=== PATIENT | male | born 1965 | race Caucasian/White ===

== ENCOUNTER 2018-06-18 15:54 | Inpatient (IN) ==
[2018-06-18] MEDS ORDERED: Morphine Sulfate Inj 2 MG/ML Vial IV.PUSH ONE (16:38)
[2018-06-18] MEDS ORDERED: Vancomycin Inj 1,000 MG in Sodium Chlor 0.9% Inj 250 ML IV.SIG ONE (16:39)
--- NOTE | 2018-06-18 16:45 | XR ---
EXAM DATE: 06/18/2018 4:40 PM EST AGE/SEX: 53 years / Male INDICATIONS: Fever, chest pain. CLINICAL DATA: This is the patient's initial encounter. Patient reports that signs and symptoms have been present for 1 day and indicates a pain score of 5/10. MEDICAL/SURGICAL HISTORY: Diabetes. None. COMPARISON: [facility], CHEST 1V SINGLE AP, 03/02/2018. . FINDINGS: A single AP view of the chest demonstrates stable enlargement of the cardiac silhouette. There is als o stable opacification of the right lung base with blunting of the right lateral costophrenic angle, likely representing a combination of pleural fluid and airspace disease. There is also hazy opacifica tion of the right upper and mid hemithorax, which may be slightly more pronounced compared to prior e xam. Improved aeration of the left lung base. Osseous structures are grossly intact. CONCLUSION: 1. Stable enlargement of the cardiac silhouette. 2. Stable opacification of the right lung base, likely a combination of pleural fluid and airspace d isease. 3. Hazy opacification of the right upper and mid hemithorax, possibly representing layering pleural effusion. 4. Improved aeration of the left lung base. Electronically signed by: Callie Swenson MD Board Certified Radiologist 06/18/2018 4:44 PM EST
--- NOTE | 2018-06-18 16:51 | ED ---
HPI General Chief complaint: Wound/Laceration Stated complaint: Left foot pain Time Seen by Provider: 06/18/18 16:28 Source: patient Mode of arrival: ambulatory Limitations: no limitations History of Present Illness HPI narrative: Patient is a 53-year-old male presenting to the emergency department for evaluation of cellulitis to his left lower extremity. Patient states he was sent by Dr. Ochoa, lawn mower operator for gangrene of the left foot. Patient states he has had a wound on the left great toe for 1 month, the third toe started becoming black 1-1/2-2 weeks ago. There is also a third spot on the fourth toe. Patient reports 9 out of 10 pain, aching and throbbing, constant. Symptom onset was gradual, symptoms are moderate. Patient states that he was evaluated emergency department 2 weeks ago for an ankle injury that he sustained while moving his scooter. Patient states that there is redness extending up the left lewis that is gotten worse over the last 24 hours. He denies any fever, chills, chest pain, shortness of breath. Onset (ago): week(s) Location: lower extremity Radiation: extremity Severity: moderate Severity scale (1-10): 9 Quality: aching Pain Consistency: constant Relieving factors: none Exacerbating factors: movement Treatments prior to arrival: Reports none Related Data Home Medications Medication Instructions Recorded Confirmed amlodipine 5 mg PO DAILY 06/18/18 06/18/18 aspirin 81 mg PO DAILY 06/18/18 06/18/18 carbidopa-levodopa 1 tab PO BID 06/18/18 06/18/18 carvedilol 12.5 mg PO BID 06/18/18 06/18/18 cilostazol 100 mg PO DAILY 06/18/18 06/18/18 ezetimibe 10 mg PO DAILY 06/18/18 06/18/18 gabapentin 300 mg PO BID 06/18/18 06/18/18 hydrocortisone 5 mg PO HS 06/18/18 06/18/18 hydrocortisone 10 mg PO AC 06/18/18 06/18/18 lisinopril 10 mg PO DAILY 06/18/18 06/18/18 spironolactone 25 mg PO DAILY 06/18/18 06/18/18 Allergies Allergy/AdvReac Type Severity Reaction Status Date / Time simvastatin Allergy Severe Hives Verified 06/18/18 16:09 piperacillin [From Zosyn] Allergy Nausea/Vomi Verified 06/18/18 19:21 ting tazobactam [From Zosyn] Allergy Nausea/Vomi Verified 06/18/18 19:21 ting Review of Systems ROS: all other systems reviewed are negative [facility] Medical History Medical History CHF (congestive heart failure) (Acute) Complete below knee amputation of right lower extremity (Acute) Coronary artery disease (Acute) Diabetes (Acute) Dialysis patient (Acute) ESRD (end stage renal disease) on dialysis (Acute) Hypertension (Acute) Myocardial infarction (Acute) Surgical History Surgical History H/O hernia repair (Acute) Hx of BKA (Acute) Family History Family History Other CVA (cerebral vascular accident) Heart disease Social History Social History Substance History: No History of Abuse Second Hand Smoke Exposure: Yes Smoking Status: Current some day smoker Tobacco Type: Cigarettes How Often Do You Have a Drink Containing Alcohol: Never Recent Travel in [facility] within the Last 8 Weeks: No Recent Out of Country Travel within the Last 8 Weeks: No Immunization History Tetanus Immunization: <5 Years Exam Narrative Exam Narrative: GENERAL: Well-developed, well-nourished, alert male. Appears uncomfortable, no acute distress. SKIN: Focused skin assessment warm/dry. 1 cm area of necrosis to the left great toe on the dorsal aspect, necrosis to the left third toe, the left fourth toe has an area that appears necrotic on the distal aspect. Erythema extending from the foot to the mid calf on the left. foot is significantly tender. Sensation is intact but diminished. HEAD: Atraumatic. Normocephalic. EYES: Pupils equal and round. No scleral icterus. No injection or drainage. ENT: No nasal bleeding or discharge. Mucous membranes pink and moist. NECK: Trachea midline. No JVD. CARDIOVASCULAR: Regular rate and rhythm. No murmur appreciated. RESPIRATORY: No accessory muscle use. Clear to auscultation. Breath sounds equal bilaterally. GASTROINTESTINAL: Abdomen soft, non-tender, nondistended. Hepatic and splenic margins not palpable. MUSCULOSKELETAL: No obvious deformities. No clubbing. No cyanosis. R BKA. Pulse by Doppler. NEUROLOGICAL: Awake and alert. No obvious cranial nerve deficits. Motor grossly within normal limits. Normal speech. PSYCHIATRIC: Appropriate mood and affect; insight and judgment normal. Course Initial Documented Vital Signs Temperature 99.0 F 06/18/18 16:07 Pulse Rate 78 06/18/18 16:07 Respiratory Rate 18 06/18/18 16:07 Blood Pressure 160/75 H 06/18/18 16:07 Pulse Oximetry 96 06/18/18 16:07 Last Documented Vital Signs Temperature 97.2 F L 06/19/18 04:00 Pulse Rate 77 06/19/18 04:00 Respiratory Rate 18 06/19/18 04:00 Blood Pressure 110/59 L 06/19/18 04:00 Pulse Oximetry 94 L 06/19/18 04:00 Medical Decision Making MDM Narrative Medical decision making narrative: Patient is a 53-year-old male presenting on the advice of his lawn mower operator Dr. Maria for evaluation of possible gangrene to the left foot. Labs and imaging ordered and pending, sepsis workup initiated. Patient will be given vancomycin now. MRI is pending. Patient was given morphine for pain control. CBC with stable hemoglobin of 10.3/30.5, lactic acid 0.8, CRP is 11, sed rate is 92, BUN and creatinine elevated, this is expected finding. Patient is due to have hemodialysis tomorrow. MRI shows degenerative osteoarthritis, no definitive osteomyelitis. Discussed with Dr. Peterson who accepted admission, admit orders placed. Advised that podiatry needed to be consulted, and that lawn mower operator sent patient to the emergency department for admission. Medical Screen Exam Complete: Yes Emergency Medical Condition: Yes Differential Diagnosis Differential Diagnosis: Cellulitis versus osteomyelitis versus gangrene versus other Medical Records Medical records reviewed: Yes I reviewed the patient's medical records. Lab Data Lab results reviewed: Yes I reviewed the patient's lab results. Result diagrams: 06/18/18 16:50 06/18/18 16:50 Lab Results 06/18/18 06/18/18 06/18/18 Range/Units 16:50 16:50 16:50 WBC 7.1 (4.0-11.0) th/mm3 RBC 3.19 L (4.50-5.90) mil/mm3 Hgb 10.3 L (13.0-17.0) gm/dL Hct 30.5 L (39.0-51.0) % MCV 95.7 (80.0-100.0) fL MCH 32.2 (27.0-34.0) pg MCHC 33.6 (32.0-36.0) % RDW 16.4 (11.6-17.2) % Plt Count 247 (150-450) th/mm3 MPV 7.6 (7.0-11.0) fL Neut % (Auto) 76.1 H (16.0-70.0) % Lymph % (Auto) 10.5 (9.0-44.0) % Kingfisher % (Auto) 7.0 (0.0-8.0) % Eos % (Auto) 5.3 H (0.0-4.0) % Baso % (Auto) 1.1 (0.0-2.0) % Neut # (Auto) 5.4 (1.8-7.7) th/mm3 Lymph # (Auto) 0.7 L (1.0-4.8) th/mm3 Kingfisher # (Auto) 0.5 (0.0-0.9) th/mm3 Eos # (Auto) 0.4 (0.0-0.4) th/mm3 Baso # (Auto) 0.1 (0.0-0.2) th/mm3 WBC Differential . Differential Comment Auto diff final ESR (0-20) mm/hr PT 10.7 (9.8-11.6) sec INR 1.1 Ratio APTT 30.8 (23.4-31.7) sec Sodium 140 (136-145) meq/L Potassium 4.5 (3.5-5.1) meq/L Chloride 106 (98-107) meq/L Carbon Dioxide 20.6 L (21.0-32.0) meq/L Anion Gap 13 (5-15) meq/L BUN 72 H (7-18) mg/dL Creatinine 8.98 H (0.60-1.30) mg/dL Estimated GFR 6 L (>89) mL/min POC Glucose (68-110) mg/dl Random Glucose 115 H (74-106) mg/dL Lactic Acid (0.4-2.0) mmol/L Calcium 7.6 L (8.5-10.1) mg/dL Magnesium 2.0 (1.5-2.5) mg/dL Total Bilirubin 0.3 (0.2-1.0) mg/dL AST 15 (15-37) U/L ALT 11 L (12-78) U/L Alkaline Phosphatase 134 H (45-117) U/L C-Reactive Protein 11.00 H (0.00-0.30) mg/dL Total Protein 6.6 (6.4-8.2) g/dL Albumin 2.2 L (3.4-5.0) g/dL 06/18/18 06/18/18 06/18/18 Range/Units 16:50 16:50 21:59 WBC (4.0-11.0) th/mm3 RBC (4.50-5.90) mil/mm3 Hgb (13.0-17.0) gm/dL Hct (39.0-51.0) % MCV (80.0-100.0) fL MCH (27.0-34.0) pg MCHC (32.0-36.0) % RDW (11.6-17.2) % Plt Count (150-450) th/mm3 MPV (7.0-11.0) fL Neut % (Auto) (16.0-70.0) % Lymph % (Auto) (9.0-44.0) % Kingfisher % (Auto) (0.0-8.0) % Eos % (Auto) (0.0-4.0) % Baso % (Auto) (0.0-2.0) % Neut # (Auto) (1.8-7.7) th/mm3 Lymph # (Auto) (1.0-4.8) th/mm3 Kingfisher # (Auto) (0.0-0.9) th/mm3 Eos # (Auto) (0.0-0.4) th/mm3 Baso # (Auto) (0.0-0.2) th/mm3 WBC Differential Differential Comment ESR 93 H (0-20) mm/hr PT (9.8-11.6) sec INR Ratio APTT (23.4-31.7) sec Sodium (136-145) meq/L Potassium (3.5-5.1) meq/L Chloride (98-107) meq/L Carbon Dioxide (21.0-32.0) meq/L Anion Gap (5-15) meq/L BUN (7-18) mg/dL Creatinine (0.60-1.30) mg/dL Estimated GFR (>89) mL/min POC Glucose 124 H (68-110) mg/dl Random Glucose (74-106) mg/dL Lactic Acid 0.8 (0.4-2.0) mmol/L Calcium (8.5-10.1) mg/dL Magnesium (1.5-2.5) mg/dL Total Bilirubin (0.2-1.0) mg/dL AST (15-37) U/L ALT (12-78) U/L Alkaline Phosphatase (45-117) U/L C-Reactive Protein (0.00-0.30) mg/dL Total Protein (6.4-8.2) g/dL Albumin (3.4-5.0) g/dL Imaging Data Radiologist's impression: Chest X-Ray 06/18/18 16:28 CONCLUSION: 1. Stable enlargement of the cardiac silhouette. 2. Stable opacification of the right lung base, likely a combination of pleural fluid and airspace disease. 3. Hazy opacification of the right upper and mid hemithorax, possibly representing layering pleural effusion. 4. Improved aeration of the left lung base. Foot MRI 06/18/18 16:30 CONCLUSION: 1. Postsurgical features with no definitive evidence for osteomyelitis, as questioned. 2. Degenerative osteoarthritis, most notably of the first metatarsophalangeal and interphalangeal joints. Discharge Plan Discharge Disposition Patient Disposition: ED Admit(ED Internal Use Only) Discharge Condition Condition: Stable Discharge Order Discharge Orders: ED Use Only Admit Order (Routine); Ordered 06/18/18 Ordered By: Judy Acosta Discharge Details Diagnosis: ESRD (end stage renal disease) on dialysis, DM2 (diabetes mellitus, type 2), Cellulitis, Gangrene Physicians Team ED Provider: Ciarra Gray ED Midlevel Provider: Judy Acosta Primary Care Provider: Jose Orellana Attending Provider: Alex Garcia Other Providers: Chele Reid ; Elvia Rodriguez Status ED Status: Left Department Discharge Information Discharge Date/Time: 06/18/18 19:53
[2018-06-18 17:05] LABS: Baso # (Auto) 0.1 th/mm3 (0.0-0.2); Baso % (Auto) 1.1 % (0.0-2.0); Eos # (Auto) 0.4 th/mm3 (0.0-0.4); Eos % (Auto) 5.3 % (0.0-4.0); Hematocrit 30.5 % (39.0-51.0); Hemoglobin 10.3 gm/dL (13.0-17.0); Lymph # (Auto) 0.7 th/mm3 (1.0-4.8); Lymph % (Auto) 10.5 % (9.0-44.0); Mean Corpuscular HGB Conc 33.6 % (32.0-36.0); Mean Corpuscular Hemoglobin 32.2 pg (27.0-34.0); Mean Corpuscular Volume 95.7 fL (80.0-100.0); Mean Platelet Volume 7.6 fL (7.0-11.0); Mono # (Auto) 0.5 th/mm3 (0.0-0.9); Neut # (Auto) 5.4 th/mm3 (1.8-7.7); Neut % (Auto) 76.1 % (16.0-70.0); Platelet Count 247 th/mm3 (150-450); Red Blood Count 3.19 mil/mm3 (4.50-5.90); Red Cell Distribution Width 16.4 % (11.6-17.2); White Blood Count 7.1 th/mm3 (4.0-11.0)
[2018-06-18 17:22] LABS: Activated Partial Thrombo Time 30.8 sec (23.4-31.7); INR 1.1 Ratio; Prothrombin Time 10.7 sec (9.8-11.6)
[2018-06-18 17:43] LABS: Alanine Aminotransferase 11 U/L (12-78); Albumin 2.2 g/dL (3.4-5.0); Anion Gap 13 meq/L (5-15); Aspartate Aminotransferase 15 U/L (15-37); Blood Urea Nitrogen 72 mg/dL (7-18); Calcium 7.6 mg/dL (8.5-10.1); Carbon Dioxide 20.6 meq/L (21.0-32.0); Chloride 106 meq/L (98-107); Glomerular Filtration Rate 6 mL/min (>89); Glucose,Random 115 mg/dL (74-106); Potassium 4.5 meq/L (3.5-5.1); Sodium 140 meq/L (136-145)
[2018-06-18 17:46] LABS: Alkaline Phosphatase 134 U/L (45-117); Total Protein 6.6 g/dL (6.4-8.2)
[2018-06-18] MEDS ORDERED: Piperacil/Tazo 3.375 GM Premix 3.375 GM/50 ML PIGGYBACK IV.SIG ONE (18:31)
[2018-06-18] MEDS ORDERED: Dextrose 50% in Water 50 ML Vial IV.PUSH PRN (18:34)
[2018-06-18] MEDS ORDERED: Vancomycin Consult Pharmacy OTHER PRN (18:34)
[2018-06-18] MEDS ORDERED: Acetaminophen 325 MG Tablet PO PRN (18:37)
[2018-06-18] MEDS ORDERED: Bisacodyl 10 MG Supp RECTAL PRN (18:37)
[2018-06-18] MEDS ORDERED: Naloxone Inj 0.4 MG/ML Vial IV.PUSH PRN (18:40)
--- NOTE | 2018-06-18 18:49 | MR ---
EXAM DATE: 06/18/2018 6:41 PM EST AGE/SEX: 53 years / Male INDICATIONS: Osteomyelitis. CLINICAL DATA: This is the patient's initial encounter. Patient reports that signs and symptoms have been present for 1 day and indicates a pain score of 0/10. MEDICAL/SURGICAL HISTORY: Diabetes mellitus type II. Hypertension. Chronic renal failure. Li pedrito failure. CHF. . Left foot second toe amputation. Right BKA. Dialysis port placement. COMPARISON: C, FOOT COMPLETE LEFT 3V, 06/04/2018. . TECHNIQUE: Multiplanar, multisequence MRI examination was performed without contrast. FINDINGS: Bones: Postsurgical features of prior amputation of the second phalanges and resection of the distal fifth metatarsal. No definitive abnormal bone marrow signal or bone marrow edema to suggest osteomyel itis. Joint Spaces: Degenerative osteoarthritis most notably of the first metatarsophalangeal and interphal angeal joints with subtle joint effusions. Tendons: The flexor tendons are intact. Soft Tissues: Postsurgical soft tissue changes. Otherwise, unremarkable. Other: The plantar fascia is intact. No signal abnormalities are seen in the plantar musculature. CONCLUSION: 1. Postsurgical features with no definitive evidence for osteomyelitis, as questioned. 2. Degenerative osteoarthritis, most notably of the first metatarsophalangeal and interphalangeal wilberto ints. Electronically signed by: Anthony Ferrer MD Board Certified Radiologist 06/18/2018 6:47 PM BRYAN Gray
[2018-06-18] MEDS: Morphine Inj 4 MG/ML Vial IV.PUSH PRN (19:22)
[2018-06-18] MEDS ORDERED: Hydrocortisone 10 MG Tablet PO SCH (21:00)
--- NOTE | 2018-06-18 21:16 | P.HP ---
History of Present Illness Service: [facility] Primary Care Physician: Jose Orellana MD History of Present Illness: 53-year-old male with a past medical history significant for diabetes mellitus, coronary artery disease, end-stage renal disease on dialysis Thursday, liver disease with multiple paracentesis and hypertension presents to the emergency department for the evaluation of left third toe cellulitis and pain. The patient reports that approximately 2 weeks ago he started to have pain and swelling in the third digit on his left foot. He denies any trauma to the area but does state that he had a sore from his diabetic shoes present on that foot. He was seen by his data modeling architect, Dr. Ochoa, and sent to the emergency department for further evaluation. Patient denies any fever/chills. Last dialysis was yesterday. No chest pain or shortness of breath. No abdominal pain. No nausea/vomiting/diarrhea. No focal neurologic deficits. Inpatient Certification: I certify that the inpatient services were ordered in accordance with Medicare regulations governing the order. This includes certification that hospital inpatient services are reasonable and necessary and in the case of services not specified as inpatient-only under 42 CFR 419.22(n), that they are appropriately provided as inpatient services in accordance to with the 2-midnight benchmark under 43 CFR 412.3(e) Estimated Total Length of Stay (Days): 2 Plans for Post Hospital Care: Not yet determined Review of Systems All other systems reviewed negative except as stated in HPI [facility] - History History Provided By: Patient - Medical History Medical History: Medical History (Last Reviewed 06/18/18 @ 21:08 by Otilia Orozco MD) ESRD (end stage renal disease) on dialysis CHF (congestive heart failure) Complete below knee amputation of right lower extremity Coronary artery disease Diabetes Dialysis patient Hypertension Myocardial infarction - Surgical History Surgical History: Surgical History (Last Reviewed 06/18/18 @ 21:08 by Otilia Orozco MD) H/O hernia repair Hx of BKA - Family History Family History: Family History (Last Reviewed 06/18/18 @ 21:08 by Otilia Orozco MD) Other CVA (cerebral vascular accident) Heart disease - Tobacco History Second Hand Smoke Exposure: Yes Tobacco Use In Past 30 Days: Yes Smoking Status: Current every day smoker Tobacco Type: Cigarettes - Alcohol History How Often Do You Have a Drink Containing Alcohol: Never - Substance Use History Substance History: No History of Abuse - Travel History Recent Travel in the [place] Within the Last 8 Weeks: No Recent Travel Out of the Country Within the Last 8 Weeks: No - Immunization History Tetanus Immunization: <5 Years Medications and Allergies Active Medications: Active Medications Acetaminophen (Tylenol) 650 mg PO Q4H PRN PRN Reason: Temp > 100.4 Hydrocodone Bitart/Acetaminophen ([place] 5/325) 1 tab PO Q4H PRN PRN Reason: PAIN SCALE 3 TO 5 Hydrocodone Bitart/Acetaminophen ([place] 10/325) 1 tab PO Q4H PRN PRN Reason: PAIN SCALE 6 TO 10 Amlodipine Besylate (Norvasc) 5 mg PO DAILY [facility] Aspirin (Aspirin Chew) 81 mg PO DAILY [facility] Bisacodyl (Dulcolax Supp) 10 mg RECTAL DAILY PRN PRN Reason: SEVERE CONSITIPATION Carbidopa/Levodopa (Simemet 10/100 Mg) 1 tab PO BID [facility] Carvedilol (Coreg) 12.5 mg PO BID [facility] Cilostazol (Pletal) 100 mg PO DAILY [facility] Dextrose (D50w Vial) 50 ml IV.PUSH UNSCH PRN PRN Reason: PER HYPOGLYCEMIA PROTOCOL Ezetimibe (Zetia) 10 mg PO DAILY [facility] Gabapentin (Neurontin) 300 mg PO BID [facility] Glucagon (Glucagon Inj) 1 mg OTHER PRN PRN PRN Reason: for Hypoglycemia Protocol Hydrocortisone Acetate (Cortef) 5 mg PO HS [facility] Piperacillin/Tazobactam/Dextrose (Zosyn 3.375 Gm Premix) 3.375 gm in 50 mls @ 100 mls/hr IV.SIG Q6H [facility] Insulin Aspart (Novolog Insulin Correctional Sugar Inj) 0 unit SQ ACHS ADELINE; Protocol Lactulose (Lactulose Liq) 30 ml PO DAILY PRN PRN Reason: SEVERE CONSITIPATION Miscellaneous (Pill Splitter) 1 each OTHER UNSCH PRN PRN Reason: SEE LABEL COMMENTS Morphine Sulfate (Morphine Inj) 1 mg IV.PUSH Q3H PRN PRN Reason: BREAKTHROUGH PAIN Last Admin: 06/18/18 19:22 Dose: 1 mg Naloxone HCl (Narcan Inj) 0.4 mg IV.PUSH UNSCH PRN PRN Reason: SEE LABEL COMMENTS Ondansetron HCl (Zofran Inj) 4 mg IV.PUSH Q6H PRN PRN Reason: NAUSEA OR VOMITING Last Admin: 06/18/18 19:21 Dose: 4 mg Pharmacy Profile Note (Vancomycin Consult Pharmacy) 1 each OTHER UNSCH PRN PRN Reason: Pharmacy to dose Senna/Docusate Sodium (Meredith-Colace) 1 tab PO BID [facility] Sennosides (Senokot) 17.2 mg PO Q12H PRN PRN Reason: Moderate Constipation Sodium Chloride (Ns Flush) 2 ml IV.FLUSH BID ADELINE Sodium Chloride (Ns Flush) 2 ml IV.FLUSH PRN PRN PRN Reason: FLUSH AFTER USING IV ACCESS Allergies Allergy/AdvReac Type Severity Reaction Status Date / Time simvastatin Allergy Severe Hives Verified 06/18/18 16:09 piperacillin [From Zosyn] Allergy Nausea/Vomi Verified 06/18/18 19:21 ting tazobactam [From Zosyn] Allergy Nausea/Vomi Verified 06/18/18 19:21 ting Home Medications Medication Instructions Recorded Confirmed Type amlodipine 5 mg PO DAILY 06/18/18 06/18/18 History aspirin 81 mg PO DAILY 06/18/18 06/18/18 History carbidopa-levodopa 1 tab PO BID 06/18/18 06/18/18 History carvedilol 12.5 mg PO BID 06/18/18 06/18/18 History cilostazol 100 mg PO DAILY 06/18/18 06/18/18 History ezetimibe 10 mg PO DAILY 06/18/18 06/18/18 History gabapentin 300 mg PO BID 06/18/18 06/18/18 History hydrocortisone 5 mg PO HS 06/18/18 06/18/18 History hydrocortisone 10 mg PO AC 06/18/18 06/18/18 History lisinopril 10 mg PO DAILY 06/18/18 06/18/18 History spironolactone 25 mg PO DAILY 06/18/18 06/18/18 History Exam Vital signs: Vital Signs 06/18/18 16:07 06/18/18 16:40 06/18/18 16:42 Temperature 99.0 F Pulse Rate 78 82 78 Respiratory Rate 18 20 Blood Pressure 160/75 H 155/77 H Pulse Oximetry 96 98 98 Intake & Output 06/18/18 06/18/18 06/19/18 06:59 18:59 06:59 Intake Total 250 / 250 Balance 250 / 250 Weight 90.718 kg Intake: IV 250 / 250 Zosyn 3.375 GM Premix 3.375 gm In 50 ml @ 100 mls/hr IV.SIG ONCE ONE Rx#:[id number] Vancomycin Inj 1,000 MG In NS 250 / 250 Inj 250 ML @ 250 mls/hr IV.SIG ONCE ONE Rx#:[id number] Narrative: Gen.: No acute distress Head: Normocephalic. Atraumatic. EENT: Pupils equal round and reactive to light. Nose without drainage. Airway intact. Throat without injection. Cardiovascular: Regular rate and rhythm. No murmurs, rubs or gallops. Respiratory: Lungs clear to auscultation bilaterally. No wheezes or rhonchi. Abdomen: Soft, nontender, nondistended. No peritoneal signs. Musculoskeletal: Right AKA. Status post amputation of second digit left foot. Skin: Third digit of left foot gangrenous appearing without drainage. Neuro: Sensory and motor grossly intact. Cranial nerves II through XII grossly intact. Results - Labs CBC & Chem 7: 06/18/18 16:50 06/18/18 16:50 Labs: Laboratory Results - last 24 hr 06/18/18 06/18/18 06/18/18 16:50 16:50 16:50 WBC 7.1 RBC 3.19 L Hgb 10.3 L Hct 30.5 L MCV 95.7 MCH 32.2 MCHC 33.6 RDW 16.4 Plt Count 247 MPV 7.6 Neut % (Auto) 76.1 H Lymph % (Auto) 10.5 [place] % (Auto) 7.0 Eos % (Auto) 5.3 H Baso % (Auto) 1.1 Neut # (Auto) 5.4 Lymph # (Auto) 0.7 L [place] # (Auto) 0.5 Eos # (Auto) 0.4 Baso # (Auto) 0.1 WBC Differential . Differential Comment Auto diff final ESR PT 10.7 INR 1.1 APTT 30.8 Sodium 140 Potassium 4.5 Chloride 106 Carbon Dioxide 20.6 L Anion Gap 13 BUN 72 H Creatinine 8.98 H Estimated GFR 6 L Random Glucose 115 H Lactic Acid Calcium 7.6 L Magnesium 2.0 Total Bilirubin 0.3 AST 15 ALT 11 L Alkaline Phosphatase 134 H C-Reactive Protein 11.00 H Total Protein 6.6 Albumin 2.2 L 06/18/18 06/18/18 16:50 16:50 WBC RBC Hgb Hct MCV MCH MCHC RDW Plt Count MPV Neut % (Auto) Lymph % (Auto) [place] % (Auto) Eos % (Auto) Baso % (Auto) Neut # (Auto) Lymph # (Auto) [place] # (Auto) Eos # (Auto) Baso # (Auto) WBC Differential Differential Comment ESR 93 H PT INR APTT Sodium Potassium Chloride Carbon Dioxide Anion Gap BUN Creatinine Estimated GFR Random Glucose Lactic Acid 0.8 Calcium Magnesium Total Bilirubin AST ALT Alkaline Phosphatase C-Reactive Protein Total Protein Albumin - Imaging Impressions Chest X-Ray 06/18/18 16:28 CONCLUSION: 1. Stable enlargement of the cardiac silhouette. 2. Stable opacification of the right lung base, likely a combination of pleural fluid and airspace disease. 3. Hazy opacification of the right upper and mid hemithorax, possibly representing layering pleural effusion. 4. Improved aeration of the left lung base. Foot MRI 06/18/18 16:30 CONCLUSION: 1. Postsurgical features with no definitive evidence for osteomyelitis, as questioned. 2. Degenerative osteoarthritis, most notably of the first metatarsophalangeal and interphalangeal joints. Caprini VTE Risk Assessment Caprini VTE Risk Assessment: No/Low Risk (score <= 1) Caprini Risk Assessment Model: Point Value = 1 Point Value = 2 Point Value = 3 Point Value = 5 Age 41-60 Minor surgery BMI > 25 kg/m2 Swollen legs Varicose veins or History of unexplained or recurrent spontaneous Oral contraceptives or hormone replacement Sepsis (< 1 month) Serious lung disease, including pneumonia (< 1 month) Abnormal pulmonary function Acute myocardial infarction Congestive heart failure (< 1 month) History of inflammatory bowel disease Medical patient at bed rest Age 61-74 Arthroscopic surgery Major open surgery (> 45 min) Laparoscopic surgery (> 45 min) Malignancy Confined to bed (> 72 hours) Immobilizing plaster cast Central venous access Age >= 75 History of VTE Family history of VTE Factor V Leiden Prothrombin [id number] Lupus anticoagulant Anticardiolipin antibodies Elevated serum homocysteine Heparin-induced thrombocytopenia Other congenital or acquired thrombophilia Stroke (< 1 month) Elective arthroplasty Hip, pelvis, or leg fracture Acute spinal cord injury (< 1 month) Prophylaxis Regimen: Total Risk Factor Score Risk Level Prophylaxis Regimen 0-1 Low Early ambulation 2 Moderate Order ONE of the following: *Sequential Compression Device (SCD) *Heparin 5000 units SQ BID 3-4 Higher Order ONE of the following medications: *Heparin 5000 units SQ TID *Enoxaparin/Lovenox 40 mg SQ daily (WT < 150 kg, CrCl > 30 mL/min) *Enoxaparin/Lovenox 30 mg SQ daily (WT < 150 kg, CrCl > 10-29 mL/min) *Enoxaparin/Lovenox 30 mg SQ BID (WT < 150 kg, CrCl > 30 mL/min) AND/OR *Sequential Compression Device (SCD) 5 or more Highest Order ONE of the following medications: *Heparin 5000 units SQ TID (Preferred with Epidurals) *Enoxaparin/Lovenox 40 mg SQ daily (WT < 150 kg, CrCl > 30 mL/min) *Enoxaparin/Lovenox 30 mg SQ daily (WT < 150 kg, CrCl > 10-29 mL/min) *Enoxaparin/Lovenox 30 mg SQ BID (WT < 150 kg, CrCl > 30 mL/min) AND *Sequential Compression Device (SCD) Assessment and Plan - Plan Assessment/plan: 1. Toe cellulitis Foot MRI negative for osteoarthritis Vancomycin and aztreonam as patient had allergic reaction to Zosyn Podiatry consulted, appreciate assistance Blood cultures pending 2. End-stage renal disease on dialysis Patient last dialyzed yesterday Nephrology consulted to assist 3. Liver disease Patient reports he has had approximately 30 paracenteses No shortness of breath Monitor 4. Diabetes mellitus Sliding scale insulin Monitor blood glucose 5. Hypertension/coronary artery disease Continue home medications FEN N.p.o. Electrolytes: Monitor and replete as needed
[2018-06-18] MEDS: Insulin NovoLOG Aspart Correctional Sugar Inj SQ SCH (21:59)
[2018-06-18] MEDS: Senna/Docusate Sodium 8.6/50 MG Tablet PO SCH (22:21)
[2018-06-18] MEDS: Carvedilol 12.5 MG Tablet PO SCH (22:21)
[2018-06-18] MEDS: Gabapentin 300 MG Capsule PO SCH (22:21)
[2018-06-18] MEDS: Aztreonam Inj 2 GM in Sodium Chloride 0.9% Inj 100 ML IV.SIG SCH (22:24)
[2018-06-19] MEDS ORDERED: Piperacil/Tazo 3.375 GM Premix 3.375 GM/50 ML PIGGYBACK IV.SIG SCH (01:00)
[2018-06-19] MEDS: Morphine Inj 4 MG/ML Vial IV.PUSH PRN ×3 (06:59→21:20)
[2018-06-19] MEDS ORDERED: Hydrocortisone 10 MG Tablet PO SCH (08:00)
[2018-06-19] MEDS: Ezetimibe 10 MG Tablet PO SCH (08:23)
[2018-06-19] MEDS: amLODIPine 5 MG Tablet PO SCH (08:24)
[2018-06-19] MEDS: Insulin NovoLOG Aspart Correctional Sugar Inj SQ SCH ×4 (08:24→20:20)
[2018-06-19] MEDS: Gabapentin 300 MG Capsule PO SCH ×2 (08:24→20:14)
[2018-06-19] MEDS: Senna/Docusate Sodium 8.6/50 MG Tablet PO SCH ×2 (08:24→20:14)
[2018-06-19] MEDS: Carvedilol 12.5 MG Tablet PO SCH ×2 (08:25→20:14)
[2018-06-19] MEDS ORDERED: Gelatin 12 MM/7 MM Topical Foam TOPICAL PRN (10:07)
[2018-06-19] MEDS ORDERED: Acetaminophen 325 MG Tablet PO PRN (10:07)
[2018-06-19] MEDS ORDERED: Sod Chloride 0.9% Inj 1,000 ML OTHER PRN ×2 (10:07)
[2018-06-19] MEDS ORDERED: Sod Chloride 0.9% Inj 1,000 ML IV.CONT PRN (10:07)
[2018-06-19] MEDS ORDERED: Heparin 10,000 UNITS/10 ML Vial (for IV use) OTHER PRN ×2 (10:07)
[2018-06-19] MEDS ORDERED: Vancomycin Inj 1,000 MG in Sodium Chlor 0.9% Inj 250 ML IV.SIG SCH (11:00)
--- NOTE | 2018-06-19 11:11 | ECHRPT ---
EXAM DATE: 06/19/2018 10:35 AM EST AGE/SEX: 53 years / Male INDICATIONS: left third toe cellulitis, diabetes mellitus CLINICAL DATA: This is the patient's initial encounter. Patient reports that signs and symptoms have been present for 2 weeks and indicates a pain score of 4/10. MEDICAL/SURGICAL HISTORY: . congestive heart failure, right below knee amputation, coronary art joaquina disease, diabetes mellitus, dialysis, ESRD, hypertension, myocardial infarction . hernia repair, BKA right COMPARISON: No prior exams available for comparison. TECHNIQUE: Four-cuff ankle and brachial pressures were obtained. Pulse cuff waveform tracings of the ankles were recorded, and ankle-brachial indices were calculated. PRESSURES (mmHg): Brachial (arm) : RIGHT: 123, LEFT: no bp/sticks Ankle : RIGHT: , LEFT: 67 KELLY : RIGHT: , LEFT: 0.54 TBI : RIGHT: , LEFT: 0.00 FINDINGS: Pulsed-Cuff Waveform: Pulse amplitude is dampened in the ankle and toe. Other: None. CONCLUSION: 1. Decreased right KELLY characteristic of moderate arterial insufficiency. 2. Absent toe pressure characteristic of severe small vessel disease and arterial insufficiency invo lving the foot. Electronically signed by: Jarod Adamson MD Board Certified Radiologist 06/19/2018 11:10 AM EST
--- NOTE | 2018-06-19 11:11 | MB ---
cc: Chele Reid MD DATE: 06/19/2018 REASON FOR CONSULTATION: End-stage renal disease, on hemodialysis for management. HISTORY OF PRESENT ILLNESS: This is a 53-year-old male with a past medical history of diabetes mellitus, ischemic heart disease, end-stage renal disease on hemodialysis 3 times per week, hypertension, peripheral vascular disease, who came to the hospital because of cellulitis and pain in the left third toe. I was called to see the patient for the management of dialysis. He has been following with Dr. Cortez and has been on hemodialysis Thursday, and Thursday. Last hemodialysis was done on . The patient has been following with research assistant, Dr. Ochoa, and he was sent to the emergency room. He has middle toe on the left foot getting some discoloration. There is no history of trauma. The patient has a history of right [id number] amputation in the past. There is no history of fever. No shortness of breath, no chest pain. No palpitation. PAST MEDICAL HISTORY: Hypertension, diabetes mellitus, peripheral vascular disease, chronic anemia, end-stage renal disease on hemodialysis 3 times per week, congestive heart failure. PAST SURGICAL HISTORY: AV fistula surgery, right [id number] amputation, hernia repair surgery. REVIEW OF SYSTEMS: There is no history of fever. No headache, dizziness or blurring of vision. No shortness of breath, no chest pain. No palpitation. No nausea or vomiting. No abdominal pain or diarrhea. The patient still has pain in the left foot area. There is no history of trauma. He has been following with research assistant. SOCIAL HISTORY: The patient is a chronic smoker. There is no history of heavy alcoholism. FAMILY HISTORY: Noncontributory. ALLERGIES: HE IS ALLERGIC TO SIMVASTATIN, ZOSYN AND TAZOBACTAM. MEDICATIONS: Currently, he is on: 1. Tylenol. 2. [place]. 3. Norvasc 5 mg once a day. 4. Aspirin 81 mg daily. 5. Aztreonam 2 grams IV every 24 hours. 6. Dulcolax p.r.n. 7. Sinemet one b.i.d. 8. Coreg 12.5 mg b.i.d. 9. Pletal 100 mg daily. 10. Zetia 10 mg daily. 11. Neurontin 300 mg b.i.d. 12. Insulin sliding scale. 13. Narcan. 14. Zofran as needed. PHYSICAL EXAMINATION: GENERAL: He is awake, alert. He is currently on hemodialysis. VITAL SIGNS: Blood pressure is 110/59, temperature 97.2, and he has been afebrile since he came in. He has a T-max of 99. HEENT: Pupils are mid constricted. Nonicteric sclerae. Conjunctivae pale. NECK: Supple. JVD is not elevated. LUNGS: The patient has bilateral good air entry with occasional wheezing. HEART: S1, S2. Regular rate and rhythm. ABDOMEN: Distended, soft, lax. There is no tenderness. Bowel sounds positive. EXTREMITIES: He has a right below-knee amputation. The left middle toe has blackish discoloration. There is no discharge seen. INVESTIGATIONS: WBC count is 7.1, hemoglobin 10.3, platelet count of 247, neutrophils 76.1%. Sodium 140, potassium 4.5, chloride 106, bicarbonate 20.6, BUN 72, creatinine 8.98, glucose 116, calcium 7.6, magnesium 2.0, AST is 15, ALT is 11, albumin is 2.2. IMAGING STUDIES: The patient had MRI of the foot done, which shows that he has degenerative osteoarthritis and post-surgical features with no definite evidence of osteomyelitis. Chest x-ray was done which shows a stable opacity at the right lung base, opacification of the right upper hemithorax, possibly underlying pleural effusion. ASSESSMENT AND PLAN: 1. Left middle toe infection versus gangrene. 2. End-stage renal disease, on hemodialysis. 3. Diabetes mellitus. 4. Anemia. 5. History of hypertension. The patient is currently on antibiotics including aztreonam and also received 1 dose of vancomycin yesterday. Will give vancomycin with dialysis. He is currently on hemodialysis and we will give him Epogen with dialysis. His last hemoglobin is 10.3. Follow the culture results. Podiatry has been consulted. We will wait for their recommendation. Thank you for the consultation. I will follow the patient while he is in the hospital. MD LUIS Odom/dayanna , 10:07 AM , 10:16 AM
--- NOTE | 2018-06-19 14:21 | P.PNIM ---
Subjective Interval history: The patient was resting comfortably in bed. He stated that his toe got worse over the past few days. He says he continues to smoke cigarettes. He is trying to quit. He says that his blood sugars are perfect at home. Discussed with nursing. Physical Exam Vital signs: Last Vital Signs Temp 97.8 F 06/19/18 08:00 Pulse 77 06/19/18 08:00 Resp 20 06/19/18 08:00 BP 105/70 06/19/18 08:00 Pulse Ox 92 L 06/19/18 08:00 Intake & Output 06/17/18 06/18/18 06/19/18 06/20/18 06:59 06:59 06:59 06:59 Intake Total 720 / 720 Output Total 0 / 0 3000 / 3000 Balance 720 / 720 -3000 / -3000 Weight 100.9 kg Narrative: Gen.: No acute distress Head: Normocephalic. Atraumatic. EENT: Pupils equal round and reactive to light. Nose without drainage. Airway intact. Throat without injection. Cardiovascular: Regular rate and rhythm. No murmurs, rubs or gallops. Respiratory: Lungs clear to auscultation bilaterally. No wheezes or rhonchi. Abdomen: Soft, nontender, nondistended. No peritoneal signs. Musculoskeletal: Right AKA. Status post amputation of second digit left foot. Skin: Third digit of left foot gangrenous appearing without drainage. Neuro: Sensory and motor grossly intact. Cranial nerves II through XII grossly intact. Results Labs CBC & Chem 7: 06/18/18 16:50 06/18/18 16:50 Labs: Microbiology 06/18/18 16:50 Blood - Peripheral Aerobic Blood Culture - Preliminary No growth in 1 day 06/18/18 16:50 Blood - Peripheral Anaerobic Blood Culture - Preliminary No growth in 1 day 06/18/18 16:45 Blood - Peripheral Aerobic Blood Culture - Preliminary No growth in 1 day 06/18/18 16:45 Blood - Peripheral Anaerobic Blood Culture - Preliminary No growth in 1 day Imaging Imaging: Impressions Extremity Arterial Study 06/18/18 00:00 CONCLUSION: 1. Decreased right KELLY characteristic of moderate arterial insufficiency. 2. Absent toe pressure characteristic of severe small vessel disease and arterial insufficiency involving the foot. Chest X-Ray 06/18/18 16:28 CONCLUSION: 1. Stable enlargement of the cardiac silhouette. 2. Stable opacification of the right lung base, likely a combination of pleural fluid and airspace disease. 3. Hazy opacification of the right upper and mid hemithorax, possibly representing layering pleural effusion. 4. Improved aeration of the left lung base. Foot MRI 06/18/18 16:30 CONCLUSION: 1. Postsurgical features with no definitive evidence for osteomyelitis, as questioned. 2. Degenerative osteoarthritis, most notably of the first metatarsophalangeal and interphalangeal joints. Assessment and Plan Plan Toe cellulitis/gangrene Foot MRI negative for osteoarthritis -Vancomycin and aztreonam as patient had allergic reaction to Zosyn. -Podiatry consulted. -Blood cultures pending. End-stage renal disease on dialysis Chronic. Nephrology consult appreciated. -dialysis per nephrology. -holding Aldactone and ACEi. Liver disease Patient reports he has had approximately 30 paracenteses. No shortness of breath. -volume control with dialysis. Diabetes mellitus Well controlled at this time. -Sliding scale insulin. PPx: Heparin Progress Note: Quality VTE Deep Vein Thrombosis/Pulmonary Embolism Present on Admission: No
[2018-06-19 15:00] LABS: Vancomycin,Random 9.2 Comment
--- NOTE | 2018-06-19 16:04 | P.CONPOD ---
History of Present Illness Service: Foot and ankle surgery surgery/podiatry Consult date: 06/19/18 Reason for Consult: Left foot ischemia, left foot second digit ischemia Primary Care Provider: Jose Orellana MD Chief Complaint: Painful left foot ischemia History of Present Illness: Podiatry consulted for this 53-year-old male with past medical history which is significant for diabetes, coronary artery disease, end-stage renal disease on dialysis Thursday, liver disease with multiple paracentesis and hypertension who presented to emergency department for evaluation to left third digit. Patient states that over 4 the past 2 weeks he had pain and swelling. His fitting room supervisor is Dr. Ochoa, Dr. Ochoa sent him to the emergency department for further evaluation. He denies any nausea vomiting fevers or chills. Patient states he lost his right leg secondary to heel ulcer and gangrene to digits. He has not seen a vascular surgeon in 3 years although he did have a vascular surgeon when he was at [place]. Review of Systems Constitutional: Denies chills, Denies fatigue, Denies fever(s) Cardiovascular: Denies chest pain, Denies shortness of breath Musculoskeletal: Reports joint pain (Left ankle) PMFSH - History History Provided By: Patient - Medical History Medical History: Medical History (Last Reviewed 06/19/18 @ 21:57 by Elvia Rodriguez DPM) ESRD (end stage renal disease) on dialysis CHF (congestive heart failure) Complete below knee amputation of right lower extremity Coronary artery disease Diabetes Dialysis patient Hypertension Myocardial infarction - Surgical History Surgical History: Surgical History (Last Reviewed 06/19/18 @ 21:57 by Elvia Rodriguez DPM) H/O hernia repair Hx of BKA - Family History Family History: Family History (Last Reviewed 06/18/18 @ 21:08 by Otilia Orozco MD) Other CVA (cerebral vascular accident) Heart disease - Tobacco History Second Hand Smoke Exposure: Yes Tobacco Use In Past 30 Days: Yes Smoking Status: Current some day smoker Tobacco Type: Cigarettes - Alcohol History How Often Do You Have a Drink Containing Alcohol: Never - Substance Use History Substance History: No History of Abuse - Travel History Recent Travel in the [place] Within the Last 8 Weeks: No Recent Travel Out of the Country Within the Last 8 Weeks: No - Immunization History Tetanus Immunization: <5 Years Hx Influenza Vaccine This Season: Yes Medications and Allergies Active Medications: Active Medications Acetaminophen (Tylenol) 650 mg PO Q4H PRN PRN Reason: Temp > 100.4 Acetaminophen (Tylenol) 650 mg PO UNSCH PRN PRN Reason: SEE LABEL COMMENTS Hydrocodone Bitart/Acetaminophen (Stryker 5/325) 1 tab PO Q4H PRN PRN Reason: PAIN SCALE 3 TO 5 Hydrocodone Bitart/Acetaminophen (Stryker 10/325) 1 tab PO Q4H PRN PRN Reason: PAIN SCALE 6 TO 10 Last Admin: 06/19/18 15:29 Dose: 1 tab Amlodipine Besylate (Norvasc) 5 mg PO DAILY [facility] Last Admin: 06/19/18 08:24 Dose: Not Given Aspirin (Aspirin Chew) 81 mg PO DAILY [facility] Last Admin: 06/19/18 08:23 Dose: 81 mg Bisacodyl (Dulcolax Supp) 10 mg RECTAL DAILY PRN PRN Reason: SEVERE CONSITIPATION Carbidopa/Levodopa (Simemet 10/100 Mg) 1 tab PO BID [facility] Last Admin: 06/19/18 08:24 Dose: 1 tab Carvedilol (Coreg) 12.5 mg PO BID [facility] Last Admin: 06/19/18 08:25 Dose: Not Given Cilostazol (Pletal) 100 mg PO DAILY [facility] Last Admin: 06/19/18 08:24 Dose: 100 mg Clonidine HCl (Catapres) 0.1 mg PO UNSCH PRN PRN Reason: SEE LABEL COMMENTS Dextrose (D50w Vial) 50 ml IV.PUSH UNSCH PRN PRN Reason: PER HYPOGLYCEMIA PROTOCOL Diphenhydramine HCl (Benadryl) 25 mg PO UNSCH PRN PRN Reason: SEE LABEL COMMENTS Ezetimibe (Zetia) 10 mg PO DAILY [facility] Last Admin: 06/19/18 08:23 Dose: 10 mg Epoetin Seth (Epogen Inj) 10,000 unit IV.PUSH UNSCH PRN PRN Reason: SEE LABEL COMMENTS Last Admin: 06/19/18 12:32 Dose: 10,000 unit Gabapentin (Neurontin) 300 mg PO BID [facility] Last Admin: 06/19/18 08:24 Dose: 300 mg Gelatin (Gelfoam 12 Mm/7 Mm Topical) 1 foam TOPICAL PRN PRN PRN Reason: help stop bleeding from site Gentamicin Sulfate (Gentamicin Inj) 20 mg OTHER WITH DIALYSIS PRN PRN Reason: Dwell Gentamycin Lock Glucagon (Glucagon Inj) 1 mg OTHER PRN PRN PRN Reason: for Hypoglycemia Protocol Heparin Sodium (Porcine) (Heparin Inj) 8,000 units OTHER WITH DIALYSIS PRN PRN Reason: for machine prime Heparin Sodium (Porcine) (Heparin Inj) 1,000 units OTHER WITH DIALYSIS PRN PRN Reason: Dwell Heparin to Fill Catheter Heparin Sodium (Porcine) (Heparin Inj) 5,000 units SQ Q8HR [facility] Aztreonam 2 gm/ Sodium (Chloride) 100 mls @ 200 mls/hr IV.SIG Q24H [facility] Last Infusion: 06/18/18 22:54 Dose: Infused Albumin Human (Flexbumin 25% Inj) 100 mls @ 60 mls/hr IV.SIG WITH DIALYSIS PRN PRN Reason: hypotension / volume replace Sodium Chloride (Ns Inj) 1,000 mls @ 0 mls/hr OTHER .Q0M PRN PRN Reason: for prime and rinse back Sodium Chloride (Ns Inj) 1,000 mls @ 200 mls/hr OTHER .Q5H PRN PRN Reason: for dialyzer flush PRN Sodium Chloride (Ns Inj) 1,000 mls @ 0 mls/hr IV.CONT .Q0M PRN PRN Reason: hypotension / volume replace Vancomycin HCl 1,000 mg/ (Sodium Chloride) 250 mls @ 250 mls/hr IV.SIG WITH DIALYSIS [facility] Last Infusion: 06/19/18 12:32 Dose: 250 mls/hr Insulin Aspart (Novolog Insulin Correctional Sugar Inj) 0 unit SQ ACHS [facility]; Protocol Last Admin: 06/19/18 12:45 Dose: Not Given Lactulose (Lactulose Liq) 30 ml PO DAILY PRN PRN Reason: SEVERE CONSITIPATION Mannitol (Mannitol Inj) 12.5 gm IV.PUSH UNSCH PRN PRN Reason: hypotension / volume replace Miscellaneous (Pill Splitter) 1 each OTHER UNSCH PRN PRN Reason: SEE LABEL COMMENTS Morphine Sulfate (Morphine Inj) 1 mg IV.PUSH Q3H PRN PRN Reason: BREAKTHROUGH PAIN Last Admin: 06/19/18 06:59 Dose: 1 mg Naloxone HCl (Narcan Inj) 0.4 mg IV.PUSH UNSCH PRN PRN Reason: SEE LABEL COMMENTS Nitroglycerin (Nitrostat Sl) 0.4 mg SL Q5M PRN PRN Reason: CHEST PAIN Ondansetron HCl (Zofran Inj) 4 mg IV.PUSH Q6H PRN PRN Reason: NAUSEA OR VOMITING Last Admin: 06/18/18 19:21 Dose: 4 mg Ondansetron HCl (Zofran Inj) 4 mg IV.PUSH UNSCH PRN PRN Reason: NAUSEA OR VOMITING Senna/Docusate Sodium (Meredith-Colace) 1 tab PO BID [facility] Last Admin: 06/19/18 08:24 Dose: Not Given Sennosides (Senokot) 17.2 mg PO Q12H PRN PRN Reason: Moderate Constipation Sodium Chloride (Ns Flush) 2 ml IV.FLUSH BID [facility] Last Admin: 06/19/18 08:25 Dose: 2 ml Sodium Chloride (Ns Flush) 2 ml IV.FLUSH PRN PRN PRN Reason: FLUSH AFTER USING IV ACCESS Sodium Chloride (Ns Flush) 5 ml IV.FLUSH PRN PRN PRN Reason: flush each lumen during HD Allergies Allergy/AdvReac Type Severity Reaction Status Date / Time simvastatin Allergy Severe Hives Verified 06/18/18 16:09 piperacillin [From Zosyn] Allergy Nausea/Vomi Verified 06/18/18 19:21 ting tazobactam [From Zosyn] Allergy Nausea/Vomi Verified 06/18/18 19:21 ting Home Medications Medication Instructions Recorded Confirmed Type amlodipine 5 mg PO DAILY 06/18/18 06/18/18 History aspirin 81 mg PO DAILY 06/18/18 06/18/18 History carbidopa-levodopa 1 tab PO BID 06/18/18 06/18/18 History carvedilol 12.5 mg PO BID 06/18/18 06/18/18 History cilostazol 100 mg PO DAILY 06/18/18 06/18/18 History ezetimibe 10 mg PO DAILY 06/18/18 06/18/18 History gabapentin 300 mg PO BID 06/18/18 06/18/18 History hydrocortisone 5 mg PO HS 06/18/18 06/18/18 History hydrocortisone 10 mg PO AC 06/18/18 06/18/18 History lisinopril 10 mg PO DAILY 06/18/18 06/18/18 History spironolactone 25 mg PO DAILY 06/18/18 06/18/18 History Physical Exam Vital signs: Vital Signs 06/18/18 16:07 06/18/18 16:40 06/18/18 16:42 Temperature 99.0 F Pulse Rate 78 82 78 Respiratory Rate 18 20 Blood Pressure 160/75 H 155/77 H Pulse Oximetry 96 98 98 06/18/18 20:00 06/19/18 00:00 06/19/18 04:00 Temperature 97.4 F L 98.2 F 97.2 F L Pulse Rate 87 83 77 Respiratory Rate 18 18 18 Blood Pressure 147/71 H 125/59 L 110/59 L Pulse Oximetry 92 L 95 94 L 06/19/18 08:00 Temperature 97.8 F Pulse Rate 77 Respiratory Rate 20 Blood Pressure 105/70 Pulse Oximetry 92 L Intake & Output 06/18/18 06/19/18 06/19/18 18:59 06:59 18:59 Intake Total 250 / 250 470 / 470 Output Total 0 / 0 3000 / 3000 Balance 250 / 250 470 / 470 -3000 / -3000 Weight 90.718 kg 100.9 kg Intake: IV 250 / 250 110 / 110 Azactam Inj 2 GM In NS Inj 100 100 / 100 ML @ 200 mls/hr IV.SIG Q24H [facility] Rx#:[id number] Zosyn 3.375 GM Premix 3.375 gm 10 / 10 In 50 ml @ 100 mls/hr IV.SIG ONCE ONE Rx#:[id number] Vancomycin Inj 1,000 MG In NS 250 / 250 Inj 250 ML @ 250 mls/hr IV.SIG ONCE ONE Rx#:[id number] Oral 360 / 360 Output: Urine 0 / 0 Hemodialysis Amount 3000 / 3000 Other: # Bowel Movements 0 Weight On Admission 100.4 kg Narrative: GENERAL: This is a well-nourished, well-developed patient, in no apparent distress. SKIN: Thin shiny atrophic skin. Left second digit with early signs of ischemia necrosis. HEAD: Atraumatic. EYES: Pupils equal round and reactive. ENT: Airway patent. NECK: Trachea midline. RESPIRATORY: Nonlabored breathing. MUSCULOSKELETAL:. Negative Homans sign bilaterally. NEUROLOGICAL: Awake and alert. Normal speech. Lower extremity physical exam: Vascular: Dorsalis pedis nonpalpable, posterior tibial nonpalpable. Capillary refill time within normal limits to digits delayed with dusky appearance noted to digits.. Edema present left lower extremity. Neuro: Gross sensation intact to bilateral lower extremity. Pinpoint sensation decreased. No hyperalgesia noted to bilateral lower extremity Dermatology: Dusky appearance to digits 1 through 4 of the left foot with early necrosis ischemia and gangrene noted to left second digit. Thin shiny atrophic skin noted left lower extremity. Erythema noted to left foot and ankle. Musculoskeletal: Tender to palpation to globally to left foot and ankle. Left fifth digit amputation noted. Right below the knee amputation noted Results - Labs CBC & Chem 7: 06/18/18 16:50 06/19/18 08:47 Laboratory Results - last 24 hr 06/18/18 06/18/18 06/18/18 16:50 16:50 16:50 WBC 7.1 RBC 3.19 L Hgb 10.3 L Hct 30.5 L MCV 95.7 MCH 32.2 MCHC 33.6 RDW 16.4 Plt Count 247 MPV 7.6 Neut % (Auto) 76.1 H Lymph % (Auto) 10.5 Hinds % (Auto) 7.0 Eos % (Auto) 5.3 H Baso % (Auto) 1.1 Neut # (Auto) 5.4 Lymph # (Auto) 0.7 L Hinds # (Auto) 0.5 Eos # (Auto) 0.4 Baso # (Auto) 0.1 WBC Differential . Differential Comment Auto diff final ESR PT 10.7 INR 1.1 APTT 30.8 Sodium 140 Potassium 4.5 Chloride 106 Carbon Dioxide 20.6 L Anion Gap 13 BUN 72 H Creatinine 8.98 H Estimated GFR 6 L POC Glucose Random Glucose 115 H Lactic Acid Calcium 7.6 L Magnesium 2.0 Total Bilirubin 0.3 AST 15 ALT 11 L Alkaline Phosphatase 134 H C-Reactive Protein 11.00 H Total Protein 6.6 Albumin 2.2 L Random Vancomycin 06/18/18 06/18/18 06/18/18 16:50 16:50 21:59 WBC RBC Hgb Hct MCV MCH MCHC RDW Plt Count MPV Neut % (Auto) Lymph % (Auto) Hinds % (Auto) Eos % (Auto) Baso % (Auto) Neut # (Auto) Lymph # (Auto) Hinds # (Auto) Eos # (Auto) Baso # (Auto) WBC Differential Differential Comment ESR 93 H PT INR APTT Sodium Potassium Chloride Carbon Dioxide Anion Gap BUN Creatinine Estimated GFR POC Glucose 124 H Random Glucose Lactic Acid 0.8 Calcium Magnesium Total Bilirubin AST ALT Alkaline Phosphatase C-Reactive Protein Total Protein Albumin Random Vancomycin 06/19/18 06/19/18 06/19/18 08:22 08:47 12:18 WBC RBC Hgb Hct MCV MCH MCHC RDW Plt Count MPV Neut % (Auto) Lymph % (Auto) Hinds % (Auto) Eos % (Auto) Baso % (Auto) Neut # (Auto) Lymph # (Auto) Hinds # (Auto) Eos # (Auto) Baso # (Auto) WBC Differential Differential Comment ESR PT INR APTT Sodium Potassium Chloride Carbon Dioxide Anion Gap BUN 75 H Creatinine 10.13 H* D Estimated GFR 5 L POC Glucose 116 H 85 Random Glucose Lactic Acid Calcium Magnesium Total Bilirubin AST ALT Alkaline Phosphatase C-Reactive Protein Total Protein Albumin Random Vancomycin 9.2 Microbiology 06/18/18 16:50 Blood - Peripheral Aerobic Blood Culture - Preliminary No growth in 1 day 06/18/18 16:50 Blood - Peripheral Anaerobic Blood Culture - Preliminary No growth in 1 day 06/18/18 16:45 Blood - Peripheral Aerobic Blood Culture - Preliminary No growth in 1 day 06/18/18 16:45 Blood - Peripheral Anaerobic Blood Culture - Preliminary No growth in 1 day - Imaging Impressions Extremity Arterial Study 06/18/18 00:00 CONCLUSION: 1. Decreased right KELLY characteristic of moderate arterial insufficiency. 2. Absent toe pressure characteristic of severe small vessel disease and arterial insufficiency involving the foot. Chest X-Ray 06/18/18 16:28 CONCLUSION: 1. Stable enlargement of the cardiac silhouette. 2. Stable opacification of the right lung base, likely a combination of pleural fluid and airspace disease. 3. Hazy opacification of the right upper and mid hemithorax, possibly representing layering pleural effusion. 4. Improved aeration of the left lung base. Foot MRI 06/18/18 16:30 CONCLUSION: 1. Postsurgical features with no definitive evidence for osteomyelitis, as questioned. 2. Degenerative osteoarthritis, most notably of the first metatarsophalangeal and interphalangeal joints. Assessment and Plan - Plan 53-year-old male with left third ischemia Patient examined evaluated all questions answered Local wound care discussed with nurse Betadine soaked dressing to left second digit Discussed with patient etiology of ischemia Vascular consult has been placed and we will await recommendations No planned surgical intervention at this time Patient may eventually need left second digit amputation but will not move forward until possible vascular intervention
--- NOTE | 2018-06-19 18:37 | ECG ---
Date Performed: 06/18/2018 Time Performed: 17:06:13 PTAGE: 53 years EKG: Sinus rhythm WITH FIRST DEGREE AV BLOCK POSSIBLE ANTERIOR MYOCARDIAL INFARCTION INFERIOR MYOCARDIAL INFARCTION MO DERATE T-WAVE ABNORMALITY, CONSIDER LATERAL ISCHEMIA ABNORMAL ECG PREVIOUS TRACING : 07/06/2015 15.36 Since the previous tracing, no significant change noted DOCTOR: Kan Dunn Interpretating Date/Time 06/19/2018 18:35:08
--- NOTE | 2018-06-19 19:51 | P.PNVS ---
Subjective Subjective/Hospital Course: Referral received Full consult to follow Miguel J Objective Vital Signs / I&O: Vital Signs 06/18/18 20:00 06/19/18 00:00 06/19/18 04:00 Temperature 97.4 F L 98.2 F 97.2 F L Pulse Rate 87 83 77 Respiratory Rate 18 18 18 Blood Pressure 147/71 H 125/59 L 110/59 L Pulse Oximetry 92 L 95 94 L 06/19/18 08:00 06/19/18 12:00 06/19/18 16:00 Temperature 97.8 F 97.6 F 98.4 F Pulse Rate 77 85 85 Respiratory Rate 20 20 20 Blood Pressure 105/70 169/86 H 120/74 Pulse Oximetry 92 L 97 93 L Intake & Output 06/19/18 06/19/18 06/20/18 06:59 18:59 06:59 Intake Total 470 / 470 730 / 730 Output Total 0 / 0 3000 / 3000 Balance 470 / 470 -2270 / -2270 Weight 100.9 kg Intake: IV 110 / 110 250 / 250 Azactam Inj 2 GM In NS Inj 100 100 / 100 ML @ 200 mls/hr IV.SIG Q24H [facility] Rx#:[id number] Zosyn 3.375 GM Premix 3.375 gm 10 / 10 In 50 ml @ 100 mls/hr IV.SIG ONCE ONE Rx#:[id number] Vancomycin Inj 1,000 MG In NS 250 / 250 Inj 250 ML @ 250 mls/hr IV.SIG WITH DIALYSIS [facility] Rx#:[id number] Oral 360 / 360 480 / 480 Output: Urine 0 / 0 Hemodialysis Amount 3000 / 3000 Other: # Voids 0 # Bowel Movements 0 0 Weight On Admission 100.4 kg Laboratory Results - last 24 hr 06/18/18 06/19/18 06/19/18 21:59 08:22 08:47 BUN 75 H Creatinine 10.13 H* D Estimated GFR 5 L POC Glucose 124 H 116 H Random Vancomycin 9.2 06/19/18 06/19/18 12:18 17:08 BUN Creatinine Estimated GFR POC Glucose 85 126 H Random Vancomycin Microbiology 06/18/18 16:50 Aerobic Blood Culture - Preliminary Blood - Peripheral No growth in 1 day Anaerobic Blood Culture - Preliminary No growth in 1 day 06/18/18 16:45 Aerobic Blood Culture - Preliminary Blood - Peripheral No growth in 1 day Anaerobic Blood Culture - Preliminary No growth in 1 day Impressions Extremity Arterial Study 06/18/18 00:00 CONCLUSION: 1. Decreased right KELLY characteristic of moderate arterial insufficiency. 2. Absent toe pressure characteristic of severe small vessel disease and arterial insufficiency involving the foot. Chest X-Ray 06/18/18 16:28 CONCLUSION: 1. Stable enlargement of the cardiac silhouette. 2. Stable opacification of the right lung base, likely a combination of pleural fluid and airspace disease. 3. Hazy opacification of the right upper and mid hemithorax, possibly representing layering pleural effusion. 4. Improved aeration of the left lung base. Foot MRI 06/18/18 16:30 CONCLUSION: 1. Postsurgical features with no definitive evidence for osteomyelitis, as questioned. 2. Degenerative osteoarthritis, most notably of the first metatarsophalangeal and interphalangeal joints.
[2018-06-19] MEDS: Aztreonam Inj 2 GM in Sodium Chloride 0.9% Inj 100 ML IV.SIG SCH (21:19)
[2018-06-19] MEDS: Heparin - SQ 10,000 UNITS/ML Vial SQ SCH (21:20)
[2018-06-20] MEDS: Heparin - SQ 10,000 UNITS/ML Vial SQ SCH ×3 (05:59→21:29)
[2018-06-20] MEDS: Insulin NovoLOG Aspart Correctional Sugar Inj SQ SCH ×4 (08:18→21:00)
[2018-06-20] MEDS: Gabapentin 300 MG Capsule PO SCH ×2 (08:19→21:00)
[2018-06-20] MEDS: Senna/Docusate Sodium 8.6/50 MG Tablet PO SCH ×2 (08:20→21:28)
[2018-06-20] MEDS: Ezetimibe 10 MG Tablet PO SCH (08:20)
[2018-06-20 08:54] LABS: Baso # (Auto) 0.1 th/mm3 (0.0-0.2); Baso % (Auto) 1.2 % (0.0-2.0); Eos # (Auto) 0.4 th/mm3 (0.0-0.4); Eos % (Auto) 6.1 % (0.0-4.0); Hematocrit 27.1 % (39.0-51.0); Lymph # (Auto) 0.7 th/mm3 (1.0-4.8); Lymph % (Auto) 11.5 % (9.0-44.0); Mean Corpuscular HGB Conc 33.1 % (32.0-36.0); Mean Corpuscular Hemoglobin 31.6 pg (27.0-34.0); Mean Corpuscular Volume 95.4 fL (80.0-100.0); Mono # (Auto) 0.5 th/mm3 (0.0-0.9); Mono % (Auto) 7.6 % (0.0-8.0); Neut # (Auto) 4.5 th/mm3 (1.8-7.7); Neut % (Auto) 73.6 % (16.0-70.0); Platelet Count 223 th/mm3 (150-450); Red Blood Count 2.85 mil/mm3 (4.50-5.90); White Blood Count 6.1 th/mm3 (4.0-11.0)
[2018-06-20] MEDS: amLODIPine 5 MG Tablet PO SCH (09:05)
[2018-06-20] MEDS: Carvedilol 12.5 MG Tablet PO SCH ×2 (09:05→21:29)
[2018-06-20 09:26] LABS: Albumin 1.8 g/dL (3.4-5.0); Alkaline Phosphatase 105 U/L (45-117); Anion Gap 12 meq/L (5-15); Aspartate Aminotransferase 12 U/L (15-37); Blood Urea Nitrogen 61 mg/dL (7-18); Calcium 7.6 mg/dL (8.5-10.1); Carbon Dioxide 26.4 meq/L (21.0-32.0); Chloride 102 meq/L (98-107); Glomerular Filtration Rate 6 mL/min (>89); Glucose,Random 126 mg/dL (74-106); Potassium 4.7 meq/L (3.5-5.1); Sodium 140 meq/L (136-145); Total Protein 5.6 g/dL (6.4-8.2)
--- NOTE | 2018-06-20 13:27 | P.PNVS ---
Subjective Subjective/Hospital Course: Referral received Full consult to bradley San 06/20/2018 Patient evaluated and full consult dictated We will go ahead with CTA with runoff of the left leg and see if there is anything salvageable there either by endovascular or open means This patient has a very significant risk of losing his leg on the BKA level Details in the consult Objective Vital Signs / I&O: Vital Signs 06/19/18 16:00 06/19/18 20:00 06/20/18 00:00 Temperature 98.4 F 99.1 F 98.8 F Pulse Rate 85 89 90 Respiratory Rate 20 18 18 Blood Pressure 120/74 118/73 120/77 Pulse Oximetry 93 L 95 96 06/20/18 04:00 06/20/18 08:00 Temperature 98.7 F 97.4 F L Pulse Rate 88 72 Respiratory Rate 18 18 Blood Pressure 125/70 134/65 Pulse Oximetry 95 90 L Intake & Output 06/19/18 06/20/18 06/20/18 18:59 06:59 18:59 Intake Total 730 / 730 100 / 100 Output Total 3000 / 3000 Balance -2270 / -2270 100 / 100 Weight 100.2 kg Intake: IV 250 / 250 100 / 100 Azactam Inj 2 GM In NS Inj 100 100 / 100 ML @ 200 mls/hr IV.SIG Q24H [facility] Rx#:[id number] Vancomycin Inj 1,000 MG In NS 250 / 250 Inj 250 ML @ 250 mls/hr IV.SIG WITH DIALYSIS [facility] Rx#:[id number] Oral 480 / 480 Output: Hemodialysis Amount 3000 / 3000 Other: # Voids 0 0 # Bowel Movements 0 Laboratory Results - last 24 hr 06/19/18 06/19/18 06/19/18 08:47 17:08 20:03 WBC RBC Hgb Hct MCV MCH MCHC RDW Plt Count MPV Neut % (Auto) Lymph % (Auto) Frederick % (Auto) Eos % (Auto) Baso % (Auto) Neut # (Auto) Lymph # (Auto) Frederick # (Auto) Eos # (Auto) Baso # (Auto) WBC Differential Differential Comment Sodium Potassium Chloride Carbon Dioxide Anion Gap BUN 75 H Creatinine 10.13 H* D Estimated GFR 5 L POC Glucose 126 H 204 H Random Glucose Calcium Magnesium Total Bilirubin Direct Bilirubin Indirect Bilirubin AST ALT Alkaline Phosphatase Total Protein Albumin Random Vancomycin 9.2 1206/20/18 06/20/18 07:41 07:41 08:18 WBC 6.1 RBC 2.85 L Hgb 9.0 L Hct 27.1 L MCV 95.4 MCH 31.6 MCHC 33.1 RDW 16.0 Plt Count 223 MPV 8.0 Neut % (Auto) 73.6 H Lymph % (Auto) 11.5 Frederick % (Auto) 7.6 Eos % (Auto) 6.1 H Baso % (Auto) 1.2 Neut # (Auto) 4.5 Lymph # (Auto) 0.7 L Frederick # (Auto) 0.5 Eos # (Auto) 0.4 Baso # (Auto) 0.1 WBC Differential . Differential Comment Auto diff final Sodium 140 Potassium 4.7 Chloride 102 Carbon Dioxide 26.4 Anion Gap 12 BUN 61 H Creatinine 8.82 H Estimated GFR 6 L POC Glucose 133 H Random Glucose 126 H Calcium 7.6 L Magnesium 2.0 Total Bilirubin 0.3 Direct Bilirubin 0.1 Indirect Bilirubin 0.2 AST 12 L ALT Less than 6 L Alkaline Phosphatase 105 Total Protein 5.6 L D Albumin 1.8 L Random Vancomycin 06/20/18 12:36 WBC RBC Hgb Hct MCV MCH MCHC RDW Plt Count MPV Neut % (Auto) Lymph % (Auto) Frederick % (Auto) Eos % (Auto) Baso % (Auto) Neut # (Auto) Lymph # (Auto) Frederick # (Auto) Eos # (Auto) Baso # (Auto) WBC Differential Differential Comment Sodium Potassium Chloride Carbon Dioxide Anion Gap BUN Creatinine Estimated GFR POC Glucose 114 H Random Glucose Calcium Magnesium Total Bilirubin Direct Bilirubin Indirect Bilirubin AST ALT Alkaline Phosphatase Total Protein Albumin Random Vancomycin Microbiology 06/18/18 16:50 Aerobic Blood Culture - Preliminary Blood - Peripheral No growth in 2 days Anaerobic Blood Culture - Preliminary No growth in 2 days 06/18/18 16:45 Aerobic Blood Culture - Preliminary Blood - Peripheral No growth in 2 days Anaerobic Blood Culture - Preliminary No growth in 2 days Impressions Extremity Arterial Study 06/18/18 00:00 CONCLUSION: 1. Decreased right KELLY characteristic of moderate arterial insufficiency. 2. Absent toe pressure characteristic of severe small vessel disease and arterial insufficiency involving the foot. Chest X-Ray 06/18/18 16:28 CONCLUSION: 1. Stable enlargement of the cardiac silhouette. 2. Stable opacification of the right lung base, likely a combination of pleural fluid and airspace disease. 3. Hazy opacification of the right upper and mid hemithorax, possibly representing layering pleural effusion. 4. Improved aeration of the left lung base. Foot MRI 06/18/18 16:30 CONCLUSION: 1. Postsurgical features with no definitive evidence for osteomyelitis, as questioned. 2. Degenerative osteoarthritis, most notably of the first metatarsophalangeal and interphalangeal joints.
--- NOTE | 2018-06-20 14:42 | MB ---
cc: Kimani Field MD DATE: 06/20/2018 CONSULTING PHYSICIAN: Kimani Field MD, vascular surgery. REASON FOR CONSULTATION: Gangrene of the left foot, ischemia of the left leg, diabetes mellitus. HISTORY OF PRESENT ILLNESS: This 53-year-old male, appearing older than his actual age, presents with gangrene of the third toe of his left foot and ischemia of the entire left foot. The patient has been diabetic for about 10 years, has end-stage renal disease on dialysis, coronary artery disease, and liver failure with occasional thoracentesis. Question arises about any remedy to all this. PAST MEDICAL HISTORY: As above noted, end-stage renal failure, on dialysis, congestive heart failure, coronary artery disease, diabetes mellitus, hypertension, previous myocardial infarction. 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 The patient has been going to [facility] for the last 5 years and does not want to go there anymore. I can see why. Medications can be found in the record. SOCIAL HISTORY: The patient is not a drinker and smokes about a pack a day now. He used to smoke 2 packs a day. PHYSICAL EXAMINATION: GENERAL: A 53-year-old male. HEENT: Normocephalic. No trauma to her head. Pupils are equal and reactive. Extraocular muscles intact. NECK: Bilateral carotid pulses, bilateral faint carotid bruits. CHEST: Bilateral breath sounds, decreased over both lungs [place]. The patient has moderate degree of COPD. HEART: Regular rhythm with occasional premature contractions while I was in the room holding the pulse. ABDOMEN: Soft, somewhat distended, hypoactive bowel sounds. Palpation nontender. No rebound, no guarding, and no masses. On percussion, the patient is dull. Consistent with actually recurrent ascites. Pelvis is stable. EXTREMITIES: On the right side, the patient is an AKA and no pulse. On the left side, he has a preserved leg. However, I do not feel either femoral, popliteal, dorsalis pedis, or posterior tibial pulse. I do have dopplerable femoral pulse, and that is about it. Leg is warm to about detention below the knee and then becomes cool, discolored, cyanotic-appearing. There is gangrene of the third toe that extends from the phalangeal into the metatarsal area. NEUROLOGIC: Grossly, the patient is intact. RECOMMENDATIONS: After reviewing laboratory and diagnostic procedures, this gentleman has severe peripheral vascular disease based on poorly controlled diabetes mellitus and smoking history. In addition, the patient has all the other stigmata of hypertension, diabetes, and such including coronary artery disease and renal failure. At this point, he needs a CTA with runoff to see if there is anything we can fix to save his leg. Clearly, he will have to have amputation of the gangrenous toe and possibly transmetatarsal amputation, but in order for that to heal, we have to bring some blood down there. If it does not happen, the patient will lose his leg below the knee on the left, which will of course make his life much more difficult than it is now considering this is the second leg he is losing. Thank you very much for the consult. I will continue to follow the patient with you and intervene on the way. MD MARTA Anderson/jovanni , 01:25 PM , 01:34 PM
--- NOTE | 2018-06-20 15:43 | P.PNIM ---
Subjective Interval history: The patient had just come back from CAT scan. He said the morphine was working a lot better than the pain pills and would rather take that instead. Discussed with nursing. Physical Exam Vital signs: Last Vital Signs Temp 97.1 F L 06/20/18 12:00 Pulse 74 06/20/18 12:00 Resp 20 06/20/18 12:00 BP 136/64 06/20/18 12:00 Pulse Ox 94 L 06/20/18 12:00 Intake & Output 06/18/18 06/19/18 06/20/18 06/21/18 06:59 06:59 06:59 06:59 Intake Total 720 / 720 830 / 830 Output Total 0 / 0 3000 / 3000 Balance 720 / 720 -2170 / -2170 Weight 100.9 kg 100.2 kg Narrative: Gen.: No acute distress Head: Normocephalic. Atraumatic. EENT: Pupils equal round and reactive to light. Nose without drainage. Airway intact. Throat without injection. Cardiovascular: Regular rate and rhythm. No murmurs, rubs or gallops. Respiratory: Lungs clear to auscultation bilaterally. No wheezes or rhonchi. Abdomen: Soft, nontender, nondistended. No peritoneal signs. Musculoskeletal: Right AKA. Status post amputation of second digit left foot. Skin: Third digit of left foot gangrenous appearing without drainage. Neuro: Sensory and motor grossly intact. Cranial nerves II through XII grossly intact. Results Labs CBC & Chem 7: 06/20/18 07:41 06/20/18 07:41 Labs: Microbiology 06/18/18 16:50 Blood - Peripheral Aerobic Blood Culture - Preliminary No growth in 2 days 06/18/18 16:50 Blood - Peripheral Anaerobic Blood Culture - Preliminary No growth in 2 days 06/18/18 16:45 Blood - Peripheral Aerobic Blood Culture - Preliminary No growth in 2 days 06/18/18 16:45 Blood - Peripheral Anaerobic Blood Culture - Preliminary No growth in 2 days Assessment and Plan Plan Toe cellulitis/gangrene Foot MRI negative for osteoarthritis. Podiatry and vascular surgery consults appreciated. -Vancomycin and aztreonam as patient had an allergic reaction to Zosyn. -Blood cultures pending. -CTA with run-off per vascular. -pain control with a bowel regimen. End-stage renal disease on dialysis Chronic. Nephrology consult appreciated. -dialysis per nephrology. -holding Aldactone and ACEi. Liver disease Patient reports he has had approximately 30 paracenteses. No shortness of breath. -volume control with dialysis. Diabetes mellitus Well controlled at this time. -Sliding scale insulin. PPx: Heparin Progress Note: Quality VTE Deep Vein Thrombosis/Pulmonary Embolism Present on Admission: No
--- NOTE | 2018-06-20 16:54 | CT ---
EXAM DATE: 06/20/2018 3:58 PM EST AGE/SEX: 53 years / Male INDICATIONS: Left gangrene toe CLINICAL DATA: This is the patient's initial encounter. Patient reports that signs and symptoms have been present for 2 weeks and indicates a pain score of 6/10. MEDICAL/SURGICAL HISTORY: Hypertension. Myocardial infarction. Congestive heart failure. Dialysi s . Hernia Repair, Below knee amputation RADIATION DOSE: 6.01 CTDI (mGy) COMPARISON: No prior exams available for comparison. TECHNIQUE: Volumetric scanning was performed using a multi-row detector CT scanner during bolus infu kermit of 100ML ml Omnipaque 350 (iohexol) nonionic water-soluble contrast as a single exam dose. Th e data was post processed with a variety of visualization algorithms including full volume maximum in tensity projection, multi-planar sliding thin slab reformation, curved planar reformation, and surfac e rendering techniques. Using automated exposure control and adjustment of the mA and/or kV accordin g to patient size, radiation dose was kept as low as reasonably achievable to obtain optimal diagnost ic quality images. DICOM format image data is available electronically for review and comparison. FINDINGS: Cardiomegaly present. There is right basilar lung consolidation with small right pleural effusion and pleural thickening. Mild to moderate ascites is present. There is severe calcific atherosclerotic disease in the aorta and visceral branches the proximal guera ac and superior mesenteric and inferior mesenteric arteries are patent. Bilateral renal arteries are patent. There is dense atherosclerosis in both iliac arteries which appear to be patent. There is a right-hoda ed [id number] amputation with densely calcific atherosclerosis in the right femoral artery. Left lower extremity is difficult to assess due to the density of calcifications. However, there appe ars to be occlusion of the distal femoral and popliteal artery with some reconstitution and flow at t he trifurcation. Inferiorly there is poor 1-2 vessel runoff. CONCLUSION: 1. Suboptimal study for diagnostic purposes. Atherosclerotic disease is densely calcified making it difficult to evaluate the patency of vessels in the left lower extremity. The distal left femoral art joaquina and popliteal arteries appear to be occluded with blood flow to the leg and foot through collater al vessels with some reconstitution. There is probably 1-2 vessel poor runoff at the foot. This would be better assessed with conventional angiography. 2. Mild to moderate ascites. Chronic appearing right pleural effusion with pleural thickening and ba silar lung consolidation and atelectasis. Mild anasarca. Cardiomegaly. Electronically signed by: Gaetano Baptiste MD Board Certified Radiologist 06/20/2018 4:52 PM EST
[2018-06-20] MEDS: Morphine Inj 4 MG/ML Vial IV.PUSH PRN ×2 (17:19→21:29)
--- NOTE | 2018-06-20 18:51 | US ---
EXAM DATE: 06/20/2018 6:47 PM EST AGE/SEX: 53 years / Male INDICATIONS: Carotid bruit. CLINICAL DATA: This is the patient's initial encounter. Patient reports that signs and symptoms have been present for 1 day and indicates a pain score of 0/10. MEDICAL/SURGICAL HISTORY: Congestive heart failure. Hypertension. Diabetes. Coronary artery disease. Dialysis patient. Myocardial infarction. End stage renal disease. . Hernia repair. Complete below the knee amputation of right lower extremity. COMPARISON: No prior exams available for comparison. VELOCITY PARAMETERS: ICA/CCA Ratio: Right 1.9 , Left 1.3 ICA: Right 129 cm/sec, Left 133 cm/sec CCA: Right 66.4 cm/sec, Left 105 cm/sec ECA: Right 105 cm/sec, Left 154 cm/sec Vertebral: Right 63 cm/sec antegrade, Left 71 cm/sec antegrade FINDINGS: Right Carotid: Mild arteriosclerotic plaque is visualized.The waveforms are within normal limits. Left Carotid: Mild arteriosclerotic plaque is visualized. The waveforms are within normal limits. Other: None. CONCLUSION: 1. Right Internal Carotid Artery: Calcified plaque without hemodynamically significant stenosis. 2. Left Internal Carotid Artery: Calcified plaque without hemodynamically significant stenosis. Electronically signed by: Gaetano Baptiste MD Board Certified Radiologist 06/20/2018 6:49 PM EST
[2018-06-20] MEDS: Aztreonam Inj 2 GM in Sodium Chloride 0.9% Inj 100 ML IV.SIG SCH (21:29)
--- NOTE | 2018-06-20 22:16 | P.PNNP ---
Subjective Interval history: Patient seen in the afternoon,alert, mild pain in the foot. Physical Exam Vital signs: Vital Signs 06/20/18 00:00 06/20/18 04:00 06/20/18 08:00 Temperature 98.8 F 98.7 F 97.4 F L Pulse Rate 90 88 72 Respiratory Rate 18 18 18 Blood Pressure 120/77 125/70 134/65 Pulse Oximetry 96 95 90 L 06/20/18 12:00 06/20/18 16:00 06/20/18 20:00 Temperature 97.1 F L 97.5 F L 97.2 F L Pulse Rate 74 70 73 Respiratory Rate 20 20 18 Blood Pressure 136/64 141/61 H 139/64 Pulse Oximetry 94 L 94 L 94 L Intake & Output 06/20/18 06/20/18 06/21/18 06:59 18:59 06:59 Intake Total 100 / 100 840 / 840 100 / 100 Balance 100 / 100 840 / 840 100 / 100 Weight 100.2 kg Intake: IV 100 / 100 100 / 100 Azactam Inj 2 GM In NS Inj 100 100 / 100 100 / 100 ML @ 200 mls/hr IV.SIG Q24H ADELINE Rx#:[id number] Oral 840 / 840 Other: # Voids 0 0 Date of Last Bowel Movement 06/18/18 # Bowel Movements 0 Narrative: Gen.: No acute distress Head: Normocephalic. Atraumatic. EENT: Pupils equal round and reactive to light. Nose without drainage. Airway intact. Throat without injection. Cardiovascular: Regular rate and rhythm. No murmurs, rubs or gallops. Respiratory: Lungs clear to auscultation bilaterally. No wheezes or rhonchi. Abdomen: Soft, nontender, nondistended. No peritoneal signs. Musculoskeletal: Right AKA. Status post amputation of second digit left foot. Skin: Third digit of left foot gangrenous appearing without drainage. Neuro: Sensory and motor grossly intact. Cranial nerves II through XII grossly intact. Assessment and Plan - Assessment (1) Cellulitis Code(s): L03.90 - Cellulitis, unspecified Status: Acute (2) Gangrene Code(s): I96 - Gangrene, not elsewhere classified Status: Acute (3) S/P BKA (below knee amputation) unilateral Code(s): Z89.519 - Acquired absence of unspecified leg below knee Status: Acute (4) Systolic and diastolic CHF, chronic Code(s): I50.42 - Chronic combined systolic (congestive) and diastolic ( congestive) heart failure Status: Chronic (5) CAD (coronary artery disease) Code(s): I25.10 - Atherosclerotic heart disease of [place] coronary artery without angina pectoris Status: Chronic Qualifiers: Coronary Disease-Associated Artery/Lesion type: [place] artery [place] vs. transplanted heart: [place] heart Associated angina: without angina Qualified Code(s): I25.10 - Atherosclerotic heart disease of [place] coronary artery without angina pectoris (6) DM2 (diabetes mellitus, type 2) Code(s): E11.9 - Type 2 diabetes mellitus without complications Status: Chronic Qualifiers: (7) ESRD (end stage renal disease) on dialysis Code(s): N18.6 - End stage renal disease; Z99.2 - Dependence on renal dialysis Status: Chronic (8) Anemia Code(s): D64.9 - Anemia, unspecified Status: Chronic Qualifiers: Anemia type: due to chronic kidney disease Chronic kidney disease stage: on chronic dialysis Qualified Code(s): N18.6 - End stage renal disease; D63.1 - Anemia in chronic kidney disease; Z99.2 - Dependence on renal dialysis - Plan Patient with history of End stage renal disease, on HD. Patient now admitted with cellulitis and gangrene of the toe. Seen by podiatry and also Vascular surgery seen the patient. HD to continue as schedule. Continue antibiotics. Further recommendation as per vascular surgery.
[2018-06-21] MEDS: Heparin - SQ 10,000 UNITS/ML Vial SQ SCH ×3 (05:20→21:53)
[2018-06-21 08:30] LABS: Hematocrit 27.3 % (39.0-51.0); Hemoglobin 9.1 gm/dL (13.0-17.0); Mean Corpuscular HGB Conc 33.2 % (32.0-36.0); Mean Corpuscular Hemoglobin 31.6 pg (27.0-34.0); Mean Platelet Volume 8.2 fL (7.0-11.0); Platelet Count 224 th/mm3 (150-450); Red Blood Count 2.87 mil/mm3 (4.50-5.90); Red Cell Distribution Width 16.4 % (11.6-17.2); White Blood Count 6.5 th/mm3 (4.0-11.0)
[2018-06-21 08:59] LABS: Calcium 7.4 mg/dL (8.5-10.1); Carbon Dioxide 23.8 meq/L (21.0-32.0); Potassium 5.2 meq/L (3.5-5.1)
[2018-06-21 09:05] LABS: Albumin 1.9 g/dL (3.4-5.0); Calcium-Albumin Corrected 9.1 mg/dL (8.5-10.1)
[2018-06-21] MEDS: Insulin NovoLOG Aspart Correctional Sugar Inj SQ SCH ×4 (09:42→21:52)
[2018-06-21] MEDS: Gabapentin 300 MG Capsule PO SCH ×2 (13:17→21:52)
[2018-06-21] MEDS: Ezetimibe 10 MG Tablet PO SCH (13:18)
[2018-06-21] MEDS: Carvedilol 12.5 MG Tablet PO SCH ×2 (13:18→22:14)
[2018-06-21] MEDS: amLODIPine 5 MG Tablet PO SCH ×2 (13:20→14:04)
[2018-06-21] MEDS: Senna/Docusate Sodium 8.6/50 MG Tablet PO SCH ×2 (13:20→21:51)
--- NOTE | 2018-06-21 13:49 | P.PNIM ---
Subjective Interval history: The patient had dialysis earlier. He states that his abdomen has gotten full again and he will require another paracentesis. He says his last paracentesis was on [place]. He says he spoke with the vascular surgeon yesterday. He thought he was can have his toe amputated today. No other acute complaints. Physical Exam Vital signs: Last Vital Signs Temp 97.6 F 06/21/18 08:00 Pulse 71 06/21/18 08:00 Resp 20 06/21/18 08:00 BP 138/74 06/21/18 08:00 Pulse Ox 96 06/21/18 08:00 Intake & Output 06/19/18 06/20/18 06/21/18 06/22/18 06:59 06:59 06:59 06:59 Intake Total 720 / 720 830 / 830 2540 / 2540 Output Total 0 / 0 3000 / 3000 2500 / 2500 Balance 720 / 720 -2170 / -2170 2540 / 2540 -2500 / -2500 Weight 100.9 kg 100.2 kg 102.7 kg Narrative: Gen.: No acute distress. Head: Normocephalic. Atraumatic. EENT: Pupils equal round and reactive to light. Nose without drainage. Airway intact. Throat without injection. Cardiovascular: Regular rate and rhythm. No murmurs, rubs or gallops. Respiratory: Lungs clear to auscultation bilaterally. No wheezes or rhonchi. Abdomen: Soft, distended, nontender. No peritoneal signs. Musculoskeletal: Right AKA. Status post amputation of second digit left foot. Skin: Third digit of left foot gangrenous appearing without drainage. Neuro: Sensory and motor grossly intact. Cranial nerves II through XII grossly intact. Results Labs CBC & Chem 7: 06/21/18 08:10 06/21/18 08:10 Labs: Microbiology 06/18/18 16:50 Blood - Peripheral Aerobic Blood Culture - Preliminary No growth in 3 days 06/18/18 16:50 Blood - Peripheral Anaerobic Blood Culture - Preliminary No growth in 3 days 06/18/18 16:45 Blood - Peripheral Aerobic Blood Culture - Preliminary No growth in 3 days 06/18/18 16:45 Blood - Peripheral Anaerobic Blood Culture - Preliminary No growth in 3 days Imaging Imaging: Impressions Carotid Doppler Study 06/20/18 00:00 CONCLUSION: 1. Right Internal Carotid Artery: Calcified plaque without hemodynamically significant stenosis. 2. Left Internal Carotid Artery: Calcified plaque without hemodynamically significant stenosis. Aorta w/Runoff CTA 06/20/18 13:18 CONCLUSION: 1. Suboptimal study for diagnostic purposes. Atherosclerotic disease is densely calcified making it difficult to evaluate the patency of vessels in the left lower extremity. The distal left femoral artery and popliteal arteries appear to be occluded with blood flow to the leg and foot through collateral vessels with some reconstitution. There is probably 1-2 vessel poor runoff at the foot. This would be better assessed with conventional angiography. 2. Mild to moderate ascites. Chronic appearing right pleural effusion with pleural thickening and basilar lung consolidation and atelectasis. Mild anasarca. Cardiomegaly. Assessment and Plan (1) Cellulitis: Code(s): L03.90 - Cellulitis, unspecified Status: Acute (2) Gangrene: Code(s): I96 - Gangrene, not elsewhere classified Status: Acute (3) S/P BKA (below knee amputation) unilateral: Code(s): Z89.519 - Acquired absence of unspecified leg below knee Status: Acute (4) Systolic and diastolic CHF, chronic: Code(s): I50.42 - Chronic combined systolic (congestive) and diastolic (congestive) heart failure Status: Chronic (5) CAD (coronary artery disease): Code(s): I25.10 - Atherosclerotic heart disease of [place] coronary artery without angina pectoris Status: Chronic (6) DM2 (diabetes mellitus, type 2): Code(s): E11.9 - Type 2 diabetes mellitus without complications Status: Chronic (7) ESRD (end stage renal disease) on dialysis: Code(s): N18.6 - End stage renal disease; Z99.2 - Dependence on renal dialysis Status: Chronic (8) Anemia: Code(s): D64.9 - Anemia, unspecified Status: Chronic Plan Toe cellulitis/gangrene Foot MRI negative for osteoarthritis. Podiatry and vascular surgery consults appreciated. CT with runoff: Suboptimal study for diagnostic purposes; Atherosclerotic disease is densely calcified making it difficult to evaluate the patency of vessels in the left lower extremity; The distal left femoral artery and popliteal arteries appear to be occluded with blood flow to the leg and foot through collateral vessels with some reconstitution; There is probably 1-2 vessel poor runoff at the foot; This would be better assessed with conventional angiography -Vancomycin and aztreonam as patient had an allergic reaction to Zosyn. -Blood cultures pending. -vascular surgery planning on toe amputation. -pain control with a bowel regimen. End-stage renal disease on dialysis Chronic. Nephrology consult appreciated. -dialysis per nephrology. -holding Aldactone and ACEi. Liver disease Patient reports he has had approximately 30 paracenteses. No shortness of breath. Complaining of abdominal distention 06/21. -volume control with dialysis. -paracentesis ordered. Diabetes mellitus Well controlled at this time. -Sliding scale insulin. PPx: Heparin Discharge Planning: Toe amputation planned by vascular surgery, possibly further surgery will be required. Paracentesis ordered. Continue antibiotics. Progress Note: Quality VTE Deep Vein Thrombosis/Pulmonary Embolism Present on Admission: No _ (1) Cellulitis Qualifiers: Laterality: Site of cellulitis: Site of cellulitis of extremity: Site of cellulitis of trunk: (2) CAD (coronary artery disease) Qualifiers: Coronary Disease-Associated Artery/Lesion type: [place] artery [place] vs. transplanted heart: [place] heart Associated angina: without angina Qualified Code(s): I25.10 - Atherosclerotic heart disease of [place] coronary artery without angina pectoris (3) DM2 (diabetes mellitus, type 2) Qualifiers: Diabetes mellitus director long term care insulin use: Diabetes mellitus complication status: Diabetes mellitus complication detail: Diabetic retinopathy severity : Proliferative retinopathy type: Diabetes mellitus macular edema: Laterality: Chronic kidney disease stage: (4) Anemia Qualifiers: Anemia type: due to chronic kidney disease Iron deficiency anemia type: Vitamin B12 deficiency anemia type: Folate deficiency anemia type: Bone marrow failure anemia type: Hemolytic anemia type: Other causes of anemia: Chronic kidney disease stage: on chronic dialysis Qualified Code(s): N18.6 - End stage renal disease; D63.1 - Anemia in chronic kidney disease; Z99.2 - Dependence on renal dialysis
[2018-06-21] MEDS: Morphine Inj 4 MG/ML Vial IV.PUSH PRN ×2 (14:04→19:21)
--- NOTE | 2018-06-21 15:44 | P.PNNP ---
Subjective Interval history: Hemodialysis today tolerated well. Abdominal US for ascites in process. Denies any shortness of breath, nausea, or vomiting. <Padmini Walton - Last Filed: 06/21/18 15:39> Physical Exam Vital signs: Vital Signs 06/20/18 16:00 06/20/18 20:00 06/21/18 00:00 Temperature 97.5 F L 97.2 F L 97.3 F L Pulse Rate 70 73 75 Respiratory Rate 20 18 20 Blood Pressure 141/61 H 139/64 131/63 Pulse Oximetry 94 L 94 L 93 L 06/21/18 04:00 06/21/18 08:00 06/21/18 12:00 Temperature 97.4 F L 97.6 F 97.2 F L Pulse Rate 73 71 77 Respiratory Rate 18 20 18 Blood Pressure 119/56 L 138/74 157/85 H Pulse Oximetry 92 L 96 94 L Intake & Output 06/20/18 06/21/18 06/21/18 18:59 06:59 18:59 Intake Total 840 / 840 1700 / 1700 Output Total 2500 / 2500 Balance 840 / 840 1700 / 1700 -2500 / -2500 Weight 102.7 kg Intake: IV 100 / 100 Azactam Inj 2 GM In NS Inj 100 100 / 100 ML @ 200 mls/hr IV.SIG Q24H [facility] Rx#:[id number] Oral 840 / 840 1600 / 1600 Output: Hemodialysis Amount 2500 / 2500 Other: # Voids 0 Date of Last Bowel Movement 06/18/18 # Bowel Movements 0 Narrative: Gen.: No acute distress. Cardiovascular: Regular rate and rhythm. No murmurs, rubs or gallops. Left ARM AVF positive thrill and bruit. Respiratory: Lungs clear to auscultation bilaterally. No wheezes or rhonchi. Abdomen: Soft, distended, nontender. No peritoneal signs. Musculoskeletal: Right AKA. Status post amputation of second digit left foot. Skin: Third digit of left foot gangrenous appearing without drainage. Neuro: Sensory and motor grossly intact. Cranial nerves II through XII grossly intact. <Padmini Walton - Last Filed: 06/21/18 15:39> Vital signs: Vital Signs 06/21/18 00:00 06/21/18 04:00 06/21/18 08:00 Temperature 97.3 F L 97.4 F L 97.6 F Pulse Rate 75 73 71 Respiratory Rate 20 18 20 Blood Pressure 131/63 119/56 L 138/74 Pulse Oximetry 93 L 92 L 96 06/21/18 12:00 06/21/18 16:00 Temperature 97.2 F L 97.2 F L Pulse Rate 77 72 Respiratory Rate 18 20 Blood Pressure 157/85 H 157/83 H Pulse Oximetry 94 L 97 Intake & Output 06/21/18 06/21/18 06/22/18 06:59 18:59 06:59 Intake Total 1700 / 1700 Output Total 2500 / 2500 Balance 1700 / 1700 -2500 / -2500 Weight 102.7 kg Intake: IV 100 / 100 Azactam Inj 2 GM In NS Inj 100 100 / 100 ML @ 200 mls/hr IV.SIG Q24H [facility] Rx#:[id number] Oral 1600 / 1600 Output: Hemodialysis Amount 2500 / 2500 Other: Date of Last Bowel Movement 06/18/18 <Chele Reid - Last Filed: 06/21/18 20:56> Assessment and Plan - Assessment (1) Cellulitis Code(s): L03.90 - Cellulitis, unspecified Status: Acute (2) Gangrene Code(s): I96 - Gangrene, not elsewhere classified Status: Acute (3) S/P BKA (below knee amputation) unilateral Code(s): Z89.519 - Acquired absence of unspecified leg below knee Status: Acute (4) Systolic and diastolic CHF, chronic Code(s): I50.42 - Chronic combined systolic (congestive) and diastolic ( congestive) heart failure Status: Chronic (5) CAD (coronary artery disease) Code(s): I25.10 - Atherosclerotic heart disease of [place] coronary artery without angina pectoris Status: Chronic Qualifiers: Coronary Disease-Associated Artery/Lesion type: [place] artery [place] vs. transplanted heart: [place] heart Associated angina: without angina Qualified Code(s): I25.10 - Atherosclerotic heart disease of [place] coronary artery without angina pectoris (6) DM2 (diabetes mellitus, type 2) Code(s): E11.9 - Type 2 diabetes mellitus without complications Status: Chronic (7) ESRD (end stage renal disease) on dialysis Code(s): N18.6 - End stage renal disease; Z99.2 - Dependence on renal dialysis Status: Chronic (8) Anemia Code(s): D64.9 - Anemia, unspecified Status: Chronic Qualifiers: Anemia type: due to chronic kidney disease Chronic kidney disease stage: on chronic dialysis Qualified Code(s): N18.6 - End stage renal disease; D63.1 - Anemia in chronic kidney disease; Z99.2 - Dependence on renal dialysis - Plan Patient with history of End stage renal disease, on HD. Followed by Dr. Hodge Patient now admitted with cellulitis and gangrene of the toe. Seen by podiatry and also Vascular surgery seen the patient. HD to continue as schedule. Continue antibiotics. Further recommendation as per vascular surgery Potassium level at 5.2, dialysate adjusted with dialysis Hemodialysis today with removal of 2.5 liters of fluid. Labs in AM <Padmini Walton - Last Filed: 06/21/18 15:39> - Assessment (1) Cellulitis Code(s): L03.90 - Cellulitis, unspecified Status: Acute (2) Gangrene Code(s): I96 - Gangrene, not elsewhere classified Status: Acute (3) S/P BKA (below knee amputation) unilateral Code(s): Z89.519 - Acquired absence of unspecified leg below knee Status: Acute (4) Systolic and diastolic CHF, chronic Code(s): I50.42 - Chronic combined systolic (congestive) and diastolic ( congestive) heart failure Status: Chronic (5) CAD (coronary artery disease) Code(s): I25.10 - Atherosclerotic heart disease of [place] coronary artery without angina pectoris Status: Chronic Qualifiers: Coronary Disease-Associated Artery/Lesion type: [place] artery [place] vs. transplanted heart: [place] heart Associated angina: without angina Qualified Code(s): I25.10 - Atherosclerotic heart disease of [place] coronary artery without angina pectoris (6) DM2 (diabetes mellitus, type 2) Code(s): E11.9 - Type 2 diabetes mellitus without complications Status: Chronic Qualifiers: (7) ESRD (end stage renal disease) on dialysis Code(s): N18.6 - End stage renal disease; Z99.2 - Dependence on renal dialysis Status: Chronic (8) Anemia Code(s): D64.9 - Anemia, unspecified Status: Chronic Qualifiers: Anemia type: due to chronic kidney disease Chronic kidney disease stage: on chronic dialysis Qualified Code(s): N18.6 - End stage renal disease; D63.1 - Anemia in chronic kidney disease; Z99.2 - Dependence on renal dialysis - Plan Patient seen and examined, agree with above. HD done today, tolerated well. Continue antibiotics. <Chele Reid - Last Filed: 06/21/18 20:56>
--- NOTE | 2018-06-21 16:56 | P.PNVS ---
Subjective Subjective/Hospital Course: Referral received Full consult to [facility] 06/20/2018 Patient evaluated and full consult dictated We will go ahead with CTA with runoff of the left leg and see if there is anything salvageable there either by endovascular or open means This patient has a very significant risk of losing his leg on the BKA level Details in the consult 06/21/2018 Patient with right above-knee amputation and remaining severe vascular occlusive disease in the left leg CTA reveals throughout calcification is very hard to tell if patient has occlusion of the vessels or any flow I suspect severe SFA and trifurcation disease with likely occlusion at least 1 or 2 vessels to the foot and probably severe vascular disease at the level of the ankle Will order angiogram with runoff in radiology and then decide if there is something we can address endovascularly If there is nothing to addressed endovascularly this patient will proceed to loses left leg Objective Vital Signs / I&O: Vital Signs 06/20/18 20:00 06/21/18 00:00 06/21/18 04:00 Temperature 97.2 F L 97.3 F L 97.4 F L Pulse Rate 73 75 73 Respiratory Rate 18 20 18 Blood Pressure 139/64 131/63 119/56 L Pulse Oximetry 94 L 93 L 92 L 06/21/18 08:00 06/21/18 12:00 Temperature 97.6 F 97.2 F L Pulse Rate 71 77 Respiratory Rate 20 18 Blood Pressure 138/74 157/85 H Pulse Oximetry 96 94 L Intake & Output 06/20/18 06/21/18 06/21/18 18:59 06:59 18:59 Intake Total 840 / 840 1700 / 1700 Output Total 2500 / 2500 Balance 840 / 840 1700 / 1700 -2500 / -2500 Weight 102.7 kg Intake: IV 100 / 100 Azactam Inj 2 GM In NS Inj 100 100 / 100 ML @ 200 mls/hr IV.SIG Q24H ADELINE Rx#:[id number] Oral 840 / 840 1600 / 1600 Output: Hemodialysis Amount 2500 / 2500 Other: # Voids 0 Date of Last Bowel Movement 06/18/18 # Bowel Movements 0 Laboratory Results - last 24 hr 06/20/18 06/20/18 06/21/18 17:07 19:53 07:56 WBC RBC Hgb Hct MCV MCH MCHC RDW Plt Count MPV Sodium Potassium Chloride Carbon Dioxide Anion Gap BUN Creatinine Estimated GFR POC Glucose 155 H 261 H 157 H Random Glucose Calcium Calcium Adj for Albumin Albumin 06/21/18 06/21/18 06/21/18 08:10 08:10 11:53 WBC 6.5 RBC 2.87 L Hgb 9.1 L Hct 27.3 L MCV 95.0 MCH 31.6 MCHC 33.2 RDW 16.4 Plt Count 224 MPV 8.2 Sodium 139 Potassium 5.2 H Chloride 102 Carbon Dioxide 23.8 Anion Gap 13 BUN 71 H Creatinine 9.97 H Estimated GFR 5 L POC Glucose 122 H Random Glucose 124 H Calcium 7.4 L* Calcium Adj for Albumin 9.1 Albumin 1.9 L Microbiology 06/18/18 16:50 Aerobic Blood Culture - Preliminary Blood - Peripheral No growth in 3 days Anaerobic Blood Culture - Preliminary No growth in 3 days 06/18/18 16:45 Aerobic Blood Culture - Preliminary Blood - Peripheral No growth in 3 days Anaerobic Blood Culture - Preliminary No growth in 3 days Impressions Carotid Doppler Study 06/20/18 00:00 CONCLUSION: 1. Right Internal Carotid Artery: Calcified plaque without hemodynamically significant stenosis. 2. Left Internal Carotid Artery: Calcified plaque without hemodynamically significant stenosis. Aorta w/Runoff CTA 06/20/18 13:18 CONCLUSION: 1. Suboptimal study for diagnostic purposes. Atherosclerotic disease is densely calcified making it difficult to evaluate the patency of vessels in the left lower extremity. The distal left femoral artery and popliteal arteries appear to be occluded with blood flow to the leg and foot through collateral vessels with some reconstitution. There is probably 1-2 vessel poor runoff at the foot. This would be better assessed with conventional angiography. 2. Mild to moderate ascites. Chronic appearing right pleural effusion with pleural thickening and basilar lung consolidation and atelectasis. Mild anasarca. Cardiomegaly.
--- NOTE | 2018-06-21 18:33 | US ---
EXAM DATE: 06/21/2018 6:31 PM EST AGE/SEX: 53 years / Male INDICATIONS: Ascites. CLINICAL DATA: This is the patient's subsequent encounter. Patient reports that signs and symptoms h ave been present for 1 week and indicates a pain score of 0/10. MEDICAL/SURGICAL HISTORY: Congestive heart failure. Diabetes. Hypertension. Coronary artery disease. Dialysis patient. End stage renal disease. Myocardial infarction. . Hernia repair. History of below the lnee amputation of right lower extremity. [place] [facility] [place]/24/[place]. . FLUID: Total volume of 5600 cc of clear, yellow fluid was removed. Fluid was discarded. Paracentesis was the rapeutic only. . . TECHNIQUE: Ultrasound guidance for abdominal paracentesis. Paracentesis. The risks, benefits, and alternatives to ultrasound guided paracentesis were explained to the patient in detail including the risk of bleeding and infection. Written and verbal informed consent was obt ained. With the patient on the ultrasound table, ultrasound imaging was used to select the most appropriate approach for paracentesis. Overlying skin was prepped and draped in the usual sterile fashion and wi th a local anesthetic, a dermatotomy was made with an 11 blade scalpel. A 6 [place] [id number] ca theter was introduced into the peritoneal cavity and fluid was collected. Post procedure scanning reveals no hematoma or other complication. The patient tolerated the procedu re well and left the ultrasound suite in stable condition. FINDINGS: Adequate fluid for paracentesis. CONCLUSION: 1. Uncomplicated paracentesis. Electronically signed by: Anthony Ferrer MD Board Certified Radiologist 06/21/2018 6:31 PM BRYAN Gray
[2018-06-21] MEDS: Aztreonam Inj 2 GM in Sodium Chloride 0.9% Inj 100 ML IV.SIG SCH (21:53)
[2018-06-22] MEDS: Morphine Inj 4 MG/ML Vial IV.PUSH PRN ×4 (03:12→22:25)
[2018-06-22] MEDS: Heparin - SQ 10,000 UNITS/ML Vial SQ SCH ×3 (06:19→21:05)
[2018-06-22] MEDS: Insulin NovoLOG Aspart Correctional Sugar Inj SQ SCH ×4 (08:48→20:58)
[2018-06-22] MEDS: amLODIPine 5 MG Tablet PO SCH (08:51)
[2018-06-22] MEDS: Gabapentin 300 MG Capsule PO SCH ×2 (08:51→20:57)
[2018-06-22] MEDS: Ezetimibe 10 MG Tablet PO SCH (08:51)
[2018-06-22] MEDS: Carvedilol 12.5 MG Tablet PO SCH ×2 (08:52→20:57)
[2018-06-22] MEDS: Senna/Docusate Sodium 8.6/50 MG Tablet PO SCH ×2 (10:13→20:58)
[2018-06-22 10:57] LABS: Baso % (Auto) 0.7 % (0.0-2.0); Eos # (Auto) 0.3 th/mm3 (0.0-0.4); Eos % (Auto) 4.1 % (0.0-4.0); Hematocrit 27.9 % (39.0-51.0); Hemoglobin 9.1 gm/dL (13.0-17.0); Lymph # (Auto) 0.7 th/mm3 (1.0-4.8); Lymph % (Auto) 10.6 % (9.0-44.0); Mean Corpuscular HGB Conc 32.7 % (32.0-36.0); Mean Corpuscular Hemoglobin 31.7 pg (27.0-34.0); Mean Corpuscular Volume 96.9 fL (80.0-100.0); Mean Platelet Volume 8.2 fL (7.0-11.0); Mono # (Auto) 0.4 th/mm3 (0.0-0.9); Mono % (Auto) 5.7 % (0.0-8.0); Neut % (Auto) 78.9 % (16.0-70.0); Platelet Count 203 th/mm3 (150-450); Red Blood Count 2.88 mil/mm3 (4.50-5.90); Red Cell Distribution Width 15.7 % (11.6-17.2); White Blood Count 6.4 th/mm3 (4.0-11.0)
[2018-06-22 11:25] LABS: Albumin 1.8 g/dL (3.4-5.0); Calcium 7.6 mg/dL (8.5-10.1); Carbon Dioxide 26.9 meq/L (21.0-32.0); Phosphorus 7.6 mg/dL (2.5-4.9); Potassium 4.5 meq/L (3.5-5.1)
[2018-06-22] MEDS ORDERED: Morphine Sulfate Inj 2 MG/ML Vial IV.PUSH PRN (13:21)
[2018-06-22] MEDS ORDERED: Ketorolac Inj 30 MG/ML (IVP) Vial IV.PUSH ONE (13:22)
--- NOTE | 2018-06-22 16:39 | P.PNPOD ---
Subjective Interval history: Pain of left lower extremity increasing, no events overnight Physical Exam Vital signs: Vital Signs 06/21/18 20:00 06/22/18 00:00 06/22/18 04:00 Temperature 97.3 F L 97.3 F L 97.5 F L Pulse Rate 73 73 75 Respiratory Rate 20 20 16 Blood Pressure 147/71 H 147/71 H 121/58 L Pulse Oximetry 96 96 92 L 06/22/18 08:00 06/22/18 12:00 Temperature 97.5 F L 97.7 F Pulse Rate 70 62 Respiratory Rate 18 18 Blood Pressure 138/67 123/59 L Pulse Oximetry 95 93 L Intake & Output 06/21/18 06/22/18 06/22/18 18:59 06:59 18:59 Intake Total 300 / 300 Output Total 2500 / 2500 1100 / 1100 Balance -2500 / -2500 -800 / -800 Weight 96.8 kg Intake: IV 100 / 100 Azactam Inj 2 GM In NS Inj 100 100 / 100 ML @ 200 mls/hr IV.SIG Q24H ADELINE Rx#:[id number] Oral 200 / 200 Output: Urine 800 / 800 Emesis 300 / 300 Hemodialysis Amount 2500 / 2500 Other: # Emeses 1 - Constitutional no acute distress - Neurological Alert and oriented x3 - Routine Extremities Exam Comments: Lower extremity physical exam: Vascular: Dorsalis pedis nonpalpable, posterior tibial nonpalpable. Capillary refill time delayed with dusky appearance noted to digits. Edema present left lower extremity. ankle and distal is cool Neuro: Gross sensation intact to bilateral lower extremity. Pinpoint sensation decreased. No hyperalgesia noted to bilateral lower extremity Dermatology: Dusky appearance to digits 1 through 4 of the left foot with early necrosis ischemia and gangrene noted to left second digit. Thin shiny atrophic skin noted left lower extremity. Erythema noted to left foot and ankle. Musculoskeletal: Tender to palpation to globally to left foot and ankle. Left fifth digit amputation noted. Right below the knee amputation noted Medications and Allergies Active Medications: Active Medications Acetaminophen (Tylenol) 650 mg PO Q4H PRN PRN Reason: Temp > 100.4 Acetaminophen (Tylenol) 650 mg PO UNSCH PRN PRN Reason: SEE LABEL COMMENTS Hydrocodone Bitart/Acetaminophen (Foster 5/325) 1 tab PO Q4H [facility] Last Admin: 06/22/18 16:21 Dose: 1 tab Amlodipine Besylate (Norvasc) 5 mg PO DAILY [facility] Last Admin: 06/22/18 08:51 Dose: 5 mg Aspirin (Aspirin Chew) 81 mg PO DAILY [facility] Last Admin: 06/22/18 08:50 Dose: 81 mg Bisacodyl (Dulcolax Supp) 10 mg RECTAL DAILY PRN PRN Reason: SEVERE CONSITIPATION Carbidopa/Levodopa (Simemet 10/100 Mg) 1 tab PO BID [facility] Last Admin: 06/22/18 08:51 Dose: 1 tab Carvedilol (Coreg) 12.5 mg PO BID [facility] Last Admin: 06/22/18 08:52 Dose: 12.5 mg Cilostazol (Pletal) 100 mg PO DAILY [facility] Last Admin: 06/22/18 08:51 Dose: 100 mg Clonidine HCl (Catapres) 0.1 mg PO UNSCH PRN PRN Reason: SEE LABEL COMMENTS Dextrose (D50w Vial) 50 ml IV.PUSH UNSCH PRN PRN Reason: PER HYPOGLYCEMIA PROTOCOL Diphenhydramine HCl (Benadryl) 25 mg PO UNSCH PRN PRN Reason: SEE LABEL COMMENTS Ezetimibe (Zetia) 10 mg PO DAILY [facility] Last Admin: 06/22/18 08:51 Dose: 10 mg Epoetin Seth (Epogen Inj) 10,000 unit IV.PUSH UNSCH PRN PRN Reason: SEE LABEL COMMENTS Last Admin: 06/21/18 11:55 Dose: 10,000 unit Gabapentin (Neurontin) 300 mg PO BID [facility] Last Admin: 06/22/18 08:51 Dose: 300 mg Gelatin (Gelfoam 12 Mm/7 Mm Topical) 1 foam TOPICAL PRN PRN PRN Reason: help stop bleeding from site Gentamicin Sulfate (Gentamicin Inj) 20 mg OTHER WITH DIALYSIS PRN PRN Reason: Dwell Gentamycin Lock Glucagon (Glucagon Inj) 1 mg OTHER PRN PRN PRN Reason: for Hypoglycemia Protocol Heparin Sodium (Porcine) (Heparin Inj) 8,000 units OTHER WITH DIALYSIS PRN PRN Reason: for machine prime Heparin Sodium (Porcine) (Heparin Inj) 1,000 units OTHER WITH DIALYSIS PRN PRN Reason: Dwell Heparin to Fill Catheter Heparin Sodium (Porcine) (Heparin Inj) 5,000 units SQ Q8HR [facility] Last Admin: 06/22/18 13:04 Dose: 5,000 units Aztreonam 2 gm/ Sodium (Chloride) 100 mls @ 200 mls/hr IV.SIG Q24H [facility] Last Infusion: 06/21/18 22:25 Dose: Infused Albumin Human (Flexbumin 25% Inj) 100 mls @ 60 mls/hr IV.SIG WITH DIALYSIS PRN PRN Reason: hypotension / volume replace Sodium Chloride (Ns Inj) 1,000 mls @ 0 mls/hr OTHER .Q0M PRN PRN Reason: for prime and rinse back Sodium Chloride (Ns Inj) 1,000 mls @ 200 mls/hr OTHER .Q5H PRN PRN Reason: for dialyzer flush PRN Sodium Chloride (Ns Inj) 1,000 mls @ 0 mls/hr IV.CONT .Q0M PRN PRN Reason: hypotension / volume replace Vancomycin HCl 1,000 mg/ (Sodium Chloride) 250 mls @ 250 mls/hr IV.SIG WITH DIALYSIS [facility] Last Infusion: 06/19/18 16:28 Dose: Infused Insulin Aspart (Novolog Insulin Correctional Sugar Inj) 0 unit SQ ACHS [facility]; Protocol Last Admin: 06/22/18 12:18 Dose: Not Given Lactulose (Lactulose Liq) 30 ml PO DAILY PRN PRN Reason: SEVERE CONSITIPATION Mannitol (Mannitol Inj) 12.5 gm IV.PUSH UNSCH PRN PRN Reason: hypotension / volume replace Miscellaneous (Pill Splitter) 1 each OTHER UNSCH PRN PRN Reason: SEE LABEL COMMENTS Morphine Sulfate (Morphine Inj) 2 mg IV.PUSH Q3H PRN PRN Reason: BREAKTHROUGH PAIN Naloxone HCl (Narcan Inj) 0.4 mg IV.PUSH UNSCH PRN PRN Reason: SEE LABEL COMMENTS Nitroglycerin (Nitrostat Sl) 0.4 mg SL Q5M PRN PRN Reason: CHEST PAIN Ondansetron HCl (Zofran Inj) 4 mg IV.PUSH Q6H PRN PRN Reason: NAUSEA OR VOMITING Last Admin: 06/18/18 19:21 Dose: 4 mg Ondansetron HCl (Zofran Inj) 4 mg IV.PUSH UNSCH PRN PRN Reason: NAUSEA OR VOMITING Senna/Docusate Sodium (Meredith-Colace) 1 tab PO BID [facility] Last Admin: 06/22/18 10:13 Dose: Not Given Sennosides (Senokot) 17.2 mg PO Q12H PRN PRN Reason: Moderate Constipation Sodium Chloride (Ns Flush) 2 ml IV.FLUSH BID [facility] Last Admin: 06/22/18 08:52 Dose: 2 ml Sodium Chloride (Ns Flush) 2 ml IV.FLUSH PRN PRN PRN Reason: FLUSH AFTER USING IV ACCESS Sodium Chloride (Ns Flush) 5 ml IV.FLUSH PRN PRN PRN Reason: flush each lumen during HD Allergies Allergy/AdvReac Type Severity Reaction Status Date / Time simvastatin Allergy Severe Hives Verified 06/18/18 16:09 piperacillin [From Zosyn] Allergy Nausea/Vomi Verified 06/18/18 19:21 ting tazobactam [From Zosyn] Allergy Nausea/Vomi Verified 06/18/18 19:21 ting Home Medications Medication Instructions Recorded Confirmed Type amlodipine 5 mg PO DAILY 06/18/18 06/18/18 History aspirin 81 mg PO DAILY 06/18/18 06/18/18 History carbidopa-levodopa 1 tab PO BID 06/18/18 06/18/18 History carvedilol 12.5 mg PO BID 06/18/18 06/18/18 History cilostazol 100 mg PO DAILY 06/18/18 06/18/18 History ezetimibe 10 mg PO DAILY 06/18/18 06/18/18 History gabapentin 300 mg PO BID 06/18/18 06/18/18 History hydrocortisone 5 mg PO HS 06/18/18 06/18/18 History hydrocortisone 10 mg PO AC 06/18/18 06/18/18 History lisinopril 10 mg PO DAILY 06/18/18 06/18/18 History spironolactone 25 mg PO DAILY 06/18/18 06/18/18 History Results - Labs CBC & Chem 7: 06/22/18 09:48 06/22/18 09:48 Laboratory Results - last 24 hr 06/21/18 06/22/18 06/22/18 20:25 08:48 09:48 WBC 6.4 RBC 2.88 L Hgb 9.1 L Hct 27.9 L MCV 96.9 MCH 31.7 MCHC 32.7 RDW 15.7 Plt Count 203 MPV 8.2 Neut % (Auto) 78.9 H Lymph % (Auto) 10.6 Love % (Auto) 5.7 Eos % (Auto) 4.1 H Baso % (Auto) 0.7 Neut # (Auto) 5.0 Lymph # (Auto) 0.7 L Love # (Auto) 0.4 Eos # (Auto) 0.3 Baso # (Auto) 0.0 WBC Differential . Differential Comment Auto diff final Sodium Potassium Chloride Carbon Dioxide Anion Gap BUN Creatinine Estimated GFR POC Glucose 174 H 135 H Random Glucose Calcium Phosphorus Albumin 06/22/18 06/22/18 09:48 12:14 WBC RBC Hgb Hct MCV MCH MCHC RDW Plt Count MPV Neut % (Auto) Lymph % (Auto) Love % (Auto) Eos % (Auto) Baso % (Auto) Neut # (Auto) Lymph # (Auto) Love # (Auto) Eos # (Auto) Baso # (Auto) WBC Differential Differential Comment Sodium 139 Potassium 4.5 Chloride 101 Carbon Dioxide 26.9 Anion Gap 11 BUN 53 H Creatinine 8.50 H Estimated GFR 7 L POC Glucose 141 H Random Glucose 115 H Calcium 7.6 L Phosphorus 7.6 H Albumin 1.8 L Microbiology 06/18/18 16:50 Blood - Peripheral Aerobic Blood Culture - Preliminary No growth in 4 days 06/18/18 16:50 Blood - Peripheral Anaerobic Blood Culture - Preliminary No growth in 4 days 06/18/18 16:45 Blood - Peripheral Aerobic Blood Culture - Preliminary No growth in 4 days 06/18/18 16:45 Blood - Peripheral Anaerobic Blood Culture - Preliminary No growth in 4 days - Imaging Impressions Paracentesis Ultrasound 06/21/18 00:00 CONCLUSION: 1. Uncomplicated paracentesis. Assessment and Plan - Assessment (1) Gangrene of toe of left foot Code(s): I96 - Gangrene, not elsewhere classified Status: Acute (2) Peripheral vascular disease of lower extremity Code(s): I73.9 - Peripheral vascular disease, unspecified Status: Acute - Plan Reviewed medicine and vascular notes. Answered questions the patient had the best of my knowledge. I do fear that without improve circulation the patient will likely need a more proximal amputation and the foot will not be salvageable. Reviewed case with medicine no surgical plans at this point. Continue antibiotics and further workup by vascular.
--- NOTE | 2018-06-22 18:01 | P.PNVS ---
Subjective Subjective/Hospital Course: Referral received Full consult to [facility] 06/20/2018 Patient evaluated and full consult dictated We will go ahead with CTA with runoff of the left leg and see if there is anything salvageable there either by endovascular or open means This patient has a very significant risk of losing his leg on the BKA level Details in the consult 06/21/2018 Patient with right above-knee amputation and remaining severe vascular occlusive disease in the left leg CTA reveals throughout calcification is very hard to tell if patient has occlusion of the vessels or any flow I suspect severe SFA and trifurcation disease with likely occlusion at least 1 or 2 vessels to the foot and probably severe vascular disease at the level of the ankle Will order angiogram with runoff in radiology and then decide if there is something we can address endovascularly If there is nothing to addressed endovascularly this patient will proceed to loses left leg 06/22/2018 Patient scheduled tomorrow to undergo formal angiogram and possible arterectomy SFA and popliteal artery are occluded and patient does not have any target vessel for bypass either femoral popliteal or femoral to distal bypass considering that trifurcation vessels and into nothing in bunch of little branches care home the calf Foot remains cyanotic and cold and calf is cool as it was on my initial exam 20 June. I discussed this with patient now at length in the presence of his brother. Depending on the results of formal angiogram this patient will either have below -knee or above-knee amputation. Foot itself is not salvageable at this time no matter what. Patient and family understand this and agree with the plan Objective Vital Signs / I&O: Vital Signs 06/21/18 20:00 06/22/18 00:00 06/22/18 04:00 Temperature 97.3 F L 97.3 F L 97.5 F L Pulse Rate 73 73 75 Respiratory Rate 20 20 16 Blood Pressure 147/71 H 147/71 H 121/58 L Pulse Oximetry 96 96 92 L 06/22/18 08:00 06/22/18 12:00 Temperature 97.5 F L 97.7 F Pulse Rate 70 62 Respiratory Rate 18 18 Blood Pressure 138/67 123/59 L Pulse Oximetry 95 93 L Intake & Output 06/21/18 06/22/18 06/22/18 18:59 06:59 18:59 Intake Total 300 / 300 Output Total 2500 / 2500 1100 / 1100 Balance -2500 / -2500 -800 / -800 Weight 96.8 kg Intake: IV 100 / 100 Azactam Inj 2 GM In NS Inj 100 100 / 100 ML @ 200 mls/hr IV.SIG Q24H ADELINE Rx#:[id number] Oral 200 / 200 Output: Urine 800 / 800 Emesis 300 / 300 Hemodialysis Amount 2500 / 2500 Other: # Emeses 1 Laboratory Results - last 24 hr 06/21/18 06/22/18 06/22/18 20:25 08:48 09:48 WBC 6.4 RBC 2.88 L Hgb 9.1 L Hct 27.9 L MCV 96.9 MCH 31.7 MCHC 32.7 RDW 15.7 Plt Count 203 MPV 8.2 Neut % (Auto) 78.9 H Lymph % (Auto) 10.6 [place] % (Auto) 5.7 Eos % (Auto) 4.1 H Baso % (Auto) 0.7 Neut # (Auto) 5.0 Lymph # (Auto) 0.7 L [place] # (Auto) 0.4 Eos # (Auto) 0.3 Baso # (Auto) 0.0 WBC Differential . Differential Comment Auto diff final Sodium Potassium Chloride Carbon Dioxide Anion Gap BUN Creatinine Estimated GFR POC Glucose 174 H 135 H Random Glucose Calcium Phosphorus Albumin 06/22/18 06/22/18 06/22/18 09:48 12:14 17:41 WBC RBC Hgb Hct MCV MCH MCHC RDW Plt Count MPV Neut % (Auto) Lymph % (Auto) [place] % (Auto) Eos % (Auto) Baso % (Auto) Neut # (Auto) Lymph # (Auto) [place] # (Auto) Eos # (Auto) Baso # (Auto) WBC Differential Differential Comment Sodium 139 Potassium 4.5 Chloride 101 Carbon Dioxide 26.9 Anion Gap 11 BUN 53 H Creatinine 8.50 H Estimated GFR 7 L POC Glucose 141 H 225 H Random Glucose 115 H Calcium 7.6 L Phosphorus 7.6 H Albumin 1.8 L Microbiology 06/18/18 16:50 Aerobic Blood Culture - Preliminary Blood - Peripheral No growth in 4 days Anaerobic Blood Culture - Preliminary No growth in 4 days 06/18/18 16:45 Aerobic Blood Culture - Preliminary Blood - Peripheral No growth in 4 days Anaerobic Blood Culture - Preliminary No growth in 4 days Impressions Carotid Doppler Study 06/20/18 00:00 CONCLUSION: 1. Right Internal Carotid Artery: Calcified plaque without hemodynamically significant stenosis. 2. Left Internal Carotid Artery: Calcified plaque without hemodynamically significant stenosis. Paracentesis Ultrasound 06/21/18 00:00 CONCLUSION: 1. Uncomplicated paracentesis.
--- NOTE | 2018-06-22 18:43 | P.PNNP ---
Subjective Interval history: Patient seen in the afternoon, alert, no SOB, mild foot pain. Physical Exam Vital signs: Vital Signs 06/21/18 20:00 06/22/18 00:00 06/22/18 04:00 Temperature 97.3 F L 97.3 F L 97.5 F L Pulse Rate 73 73 75 Respiratory Rate 20 20 16 Blood Pressure 147/71 H 147/71 H 121/58 L Pulse Oximetry 96 96 92 L 06/22/18 08:00 06/22/18 12:00 06/22/18 16:00 Temperature 97.5 F L 97.7 F 97.4 F L Pulse Rate 70 62 66 Respiratory Rate 18 18 18 Blood Pressure 138/67 123/59 L 136/64 Pulse Oximetry 95 93 L 93 L Intake & Output 06/21/18 06/22/18 06/22/18 18:59 06:59 18:59 Intake Total 300 / 300 720 / 720 Output Total 2500 / 2500 1100 / 1100 600 / 600 Balance -2500 / -2500 -800 / -800 120 / 120 Weight 96.8 kg Intake: IV 100 / 100 Azactam Inj 2 GM In NS Inj 100 100 / 100 ML @ 200 mls/hr IV.SIG Q24H ADELINE Rx#:[id number] Oral 200 / 200 720 / 720 Output: Urine 800 / 800 600 / 600 Emesis 300 / 300 Hemodialysis Amount 2500 / 2500 Other: # Emeses 1 Narrative: Gen.: No acute distress. Cardiovascular: Regular rate and rhythm. No murmurs, rubs or gallops. Left ARM AVF positive thrill and bruit. Respiratory: Lungs clear to auscultation bilaterally. No wheezes or rhonchi. Abdomen: Soft, distended, nontender. No peritoneal signs. Musculoskeletal: Right AKA. Status post amputation of second digit left foot. Skin: Third digit of left foot gangrenous appearing without drainage. Neuro: Sensory and motor grossly intact. Cranial nerves II through XII grossly intact. Assessment and Plan - Assessment (1) Cellulitis Code(s): L03.90 - Cellulitis, unspecified Status: Acute (2) Gangrene Code(s): I96 - Gangrene, not elsewhere classified Status: Acute (3) S/P BKA (below knee amputation) unilateral Code(s): Z89.519 - Acquired absence of unspecified leg below knee Status: Acute (4) Systolic and diastolic CHF, chronic Code(s): I50.42 - Chronic combined systolic (congestive) and diastolic ( congestive) heart failure Status: Chronic (5) CAD (coronary artery disease) Code(s): I25.10 - Atherosclerotic heart disease of [place] coronary artery without angina pectoris Status: Chronic Qualifiers: Coronary Disease-Associated Artery/Lesion type: [place] artery [place] vs. transplanted heart: [place] heart Associated angina: without angina Qualified Code(s): I25.10 - Atherosclerotic heart disease of [place] coronary artery without angina pectoris (6) DM2 (diabetes mellitus, type 2) Code(s): E11.9 - Type 2 diabetes mellitus without complications Status: Chronic Qualifiers: (7) ESRD (end stage renal disease) on dialysis Code(s): N18.6 - End stage renal disease; Z99.2 - Dependence on renal dialysis Status: Chronic (8) Anemia Code(s): D64.9 - Anemia, unspecified Status: Chronic Qualifiers: Anemia type: due to chronic kidney disease Chronic kidney disease stage: on chronic dialysis Qualified Code(s): N18.6 - End stage renal disease; D63.1 - Anemia in chronic kidney disease; Z99.2 - Dependence on renal dialysis - Plan Patient with end stage renal disease, on HD 3 times a week. Now admitted with foot finger cellulitis and gangrene. Patient to continue antibiotics. Vascular follow up noted, will need BKA or AK after angiogram. Continue HD.
--- NOTE | 2018-06-22 19:06 | P.PNIM ---
Subjective Interval history: 53-year-old male admitted on 06/18/2018 with history of severe peripheral vascular disease and previous BKA of right leg. He presented with a cool left lower extremity, gangrenous left toe. He has had CTA runoff and other workup that has pointed thus far to severe distal circulation which likely precludes him from an option of bypass graft. He has had discussions with myself, podiatry, vascular surgery today. Physical Exam Vital signs: Last Vital Signs Temp 97.4 F L 06/22/18 16:00 Pulse 66 06/22/18 16:00 Resp 18 06/22/18 16:00 BP 136/64 06/22/18 16:00 Pulse Ox 93 L 06/22/18 16:00 Intake & Output 06/20/18 06/21/18 06/22/18 06/23/18 06:59 06:59 06:59 06:59 Intake Total 830 / 830 2540 / 2540 300 / 300 720 / 720 Output Total 3000 / 3000 3600 / 3600 600 / 600 Balance -2170 / -2170 2540 / 2540 -3300 / -3300 120 / 120 Weight 100.2 kg 102.7 kg 96.8 kg Narrative: Gen.: No acute distress, would like more information Skin. Second toe of left foot is gangrenous under wrap, bruising. Large toe has a 1 cm ulceration on the top medial aspect Cardiovascular: Regular rate and rhythm. No murmurs, rubs or gallops. Respiratory: Lungs clear to auscultation bilaterally. No wheezes or rhonchi. Abdomen: Soft, distended, nontender. No peritoneal signs. Musculoskeletal: Right AKA. Status post amputation of second digit left foot. Poor circulation in left leg, skin appears dusky, cool to touch from near his knee to his foot Skin: Third digit of left foot gangrenous appearing Neuro: Sensory and motor grossly intact. Cranial nerves II through XII grossly intact. Results Labs CBC & Chem 7: 06/22/18 09:48 06/22/18 09:48 Labs: Microbiology 06/18/18 16:50 Blood - Peripheral Aerobic Blood Culture - Preliminary No growth in 4 days 06/18/18 16:50 Blood - Peripheral Anaerobic Blood Culture - Preliminary No growth in 4 days 06/18/18 16:45 Blood - Peripheral Aerobic Blood Culture - Preliminary No growth in 4 days 06/18/18 16:45 Blood - Peripheral Anaerobic Blood Culture - Preliminary No growth in 4 days Assessment and Plan (1) Cellulitis: Code(s): L03.90 - Cellulitis, unspecified Status: Acute (2) Gangrene: Code(s): I96 - Gangrene, not elsewhere classified Status: Acute (3) S/P BKA (below knee amputation) unilateral: Code(s): Z89.519 - Acquired absence of unspecified leg below knee Status: Acute (4) Systolic and diastolic CHF, chronic: Code(s): I50.42 - Chronic combined systolic (congestive) and diastolic (congestive) heart failure Status: Chronic (5) CAD (coronary artery disease): Code(s): I25.10 - Atherosclerotic heart disease of [place] coronary artery without angina pectoris Status: Chronic (6) DM2 (diabetes mellitus, type 2): Code(s): E11.9 - Type 2 diabetes mellitus without complications Status: Chronic (7) ESRD (end stage renal disease) on dialysis: Code(s): N18.6 - End stage renal disease; Z99.2 - Dependence on renal dialysis Status: Chronic (8) Anemia: Code(s): D64.9 - Anemia, unspecified Status: Chronic Plan Toe cellulitis/gangrene History of severe atherosclerotic disease Imaging shows distal left femoral and popliteal arteries to be occluded There is some reconstitution of circulation from collateral vessels Vascular surgery evaluated patient today and recommends angiography in the morning If there is no runoff to attach a bypass vessel to then he may need to lose the leg in order to prevent further infection and complications Continuing vancomycin and aztreonam Blood cultures remain negative Appreciate vascular surgery consult Appreciate podiatry consult End-stage renal disease on dialysis Chronic. Nephrology consult appreciated. Continue dialysis per nephrology. Continue holding Aldactone and ACEi. Liver disease Patient reports he has had approximately 30 paracenteses. No shortness of breath. Complaining of abdominal distention 06/21. volume control with dialysis. Interventional radiology requested for paracentesis Diabetes mellitus Well controlled at this time. Continue sliding-scale insulin coverage Diabetic diet DVT Prophylaxis Heparin Discharge planning Extent of amputation to be determined based on angiography tomorrow Patient prefers home of her rehab center at this time Progress Note: Quality VTE Deep Vein Thrombosis/Pulmonary Embolism Present on Admission: No _ (1) Cellulitis Qualifiers: Laterality: Site of cellulitis: Site of cellulitis of extremity: Site of cellulitis of trunk: (2) CAD (coronary artery disease) Qualifiers: Coronary Disease-Associated Artery/Lesion type: [place] artery [place] vs. transplanted heart: [place] heart Associated angina: without angina Qualified Code(s): I25.10 - Atherosclerotic heart disease of [place] coronary artery without angina pectoris (3) DM2 (diabetes mellitus, type 2) Qualifiers: Diabetes mellitus long term care pharmacist insulin use: Diabetes mellitus complication status: Diabetes mellitus complication detail: Diabetic retinopathy severity : Proliferative retinopathy type: Diabetes mellitus macular edema: Laterality: Chronic kidney disease stage: (4) Anemia Qualifiers: Anemia type: due to chronic kidney disease Iron deficiency anemia type: Vitamin B12 deficiency anemia type: Folate deficiency anemia type: Bone marrow failure anemia type: Hemolytic anemia type: Other causes of anemia: Chronic kidney disease stage: on chronic dialysis Qualified Code(s): N18.6 - End stage renal disease; D63.1 - Anemia in chronic kidney disease; Z99.2 - Dependence on renal dialysis
[2018-06-22] MEDS: Aztreonam Inj 2 GM in Sodium Chloride 0.9% Inj 100 ML IV.SIG SCH (21:05)
[2018-06-23] MEDS: Morphine Inj 4 MG/ML Vial IV.PUSH PRN ×3 (02:38→18:21)
[2018-06-23] MEDS: Heparin - SQ 10,000 UNITS/ML Vial SQ SCH ×3 (05:34→21:41)
[2018-06-23] MEDS: Insulin NovoLOG Aspart Correctional Sugar Inj SQ SCH ×4 (09:16→21:37)
[2018-06-23] MEDS: Gabapentin 300 MG Capsule PO SCH ×2 (09:17→21:36)
[2018-06-23] MEDS: Ezetimibe 10 MG Tablet PO SCH (09:18)
[2018-06-23] MEDS: amLODIPine 5 MG Tablet PO SCH (09:19)
[2018-06-23] MEDS: Carvedilol 12.5 MG Tablet PO SCH ×2 (09:19→21:36)
[2018-06-23] MEDS: Senna/Docusate Sodium 8.6/50 MG Tablet PO SCH ×2 (09:20→21:37)
[2018-06-23] MEDS ORDERED: fentaNYL Citrate Inj 250 MCG/5 ML Ampul ONE (09:48)
--- NOTE | 2018-06-23 11:48 | P.RAD ---
Post Procedure Progress Note - Pre Procedure Diagnosis (1) Gangrene of toe of left foot - Post Procedure Diagnosis (1) Gangrene of toe of left foot - Procedure Information Procedure Date: 06/23/18 Supervising Radiologist: Emeka Cardoso MD Estimated blood loss (mL): 3 Anesthesia: Local, Conscious Sedation - Plan of Activity Patient to Unit: [facility] Patient Condition: Poor Additional Comments: Angio completed: Diseased but adequate inflow to the groin. Left profunda patent. Left SFA severely diseased with multiple areas of stenosis and occlusion Popliteal severely diseased but patent. Peroneal diseased patent to ankle. The AT and PT are occluded proximally. Distal PT reconstitutes at ankle but is diseased and diminutive in caliber. Disease is not amenable to endovascular treatment. Due to severity of disease the patient will likely require amputation.Will discuss with Dr. Stokes See PACS Report for procedural detail/treatment.
--- NOTE | 2018-06-23 16:06 | IR ---
EXAM DATE: 06/23/2018 12:34 PM EST AGE/SEX: 53 years / Male INDICATIONS: Patient presents with left foot wound in need of left leg angiogram with possible inter ventions. CLINICAL DATA: This is the patient's sequela encounter. Patient reports that signs and symptoms have been present for 2 weeks and indicates a pain score of 8/10. MEDICAL/SURGICAL HISTORY: . CHF, Diabetes, CAD, ESRD, HTN, Myocardial infarction. . Complete r ight below the knee amputation, Hernia repair. COMPARISON: No prior exams available for comparison. FLUORO TIME (min): 7:15 IMAGE SERIES: 10 RADIATION DOSE: 405 mGy ACCESS SITE: Right femoral artery SEDATION TIME (min): 45 CONTRAST (cc): 68 cc Visipaque (iodixanol) MEDICATION(S): 0.5 mf midazolam (Versed) IV ; 25 mcg fentanyl (Sublimaze) IV ; ; ; DEVICE(S): . . PROCEDURE : 1. Ultrasound-guided puncture of the access site. 2. Conscious sedation with continuous EKG and Oximetry monitoring. 3. Angiography of the pelvis 4. Angiography of the left lower extremity The risks, benefits and alternatives to the procedure were explained and verbal and written consent w as obtained. The site was prepped in sterile fashion. Full sterile technique was used, including ca p, mask, sterile gloves and gown and a large sterile sheet. Hand hygiene and 2% chlorhexidine and/or betadine/alcohol prep was utilized per protocol for cutaneous antisepsis. Sterile gel and sterile p robe cover were utilized for ultrasound guidance. The skin and subcutaneous tissues were infiltrated with local anesthetic solution. With ultrasound and fluoroscopic guidance the selected artery was punctured and a vascular sheath was placed. A 0.035 angle Glidewire and 4 [place] hemostatic sheath were passed into the right common femoral circ ulation. An Omni Flush catheter was advanced over the wire. Evaluation of the pelvic circulation was performed. The catheter was advanced over the aortic bifurcation and runoff to the left lower extremi ty was evaluated. Results: There is diffuse atherosclerotic plaquing involving the common iliac, internal iliac and ext ernal iliac circulation with some scattered areas of mild stenosis but no high-grade lesions are iden tified. There appears to be adequate inflow down to the level the groin bilaterally. Left leg: The common femoral is diseased but widely patent. The profunda femoral is widely patent. Th e superficial femoral demonstrates diffuse atherosclerotic disease with multiple areas of high-grade stenosis and subtotal occlusion throughout its course. The popliteal is heavily diseased with occlusi on in its above-knee segment. Distally, the anterior tibial and posterior tibial are occluded at thei r origin. The peroneal is heavily diseased but patent throughout its course. There is eventual recons titution of a threadlike posterior tibial just above the level the ankle. The puncture site was closed with manual pressure and hemostasis was obtained. The patient tolerated the procedure well and there were no complications. Conscious sedation was performed with the prescribed dosages and duration as above in the presence of an independent trained radiology nurse to assist in the monitoring of the patient. EKG and oximetry remained stable throughout the procedure. CONCLUSION: 1. Severe atherosclerotic disease involving the superficial femoral, the popliteal and tibial vessel s as above. This is not amenable to endovascular repair. Electronically signed by: Emeka Cardoso MD Board Certified Radiologist 06/23/2018 4:04 PM EST
--- NOTE | 2018-06-23 16:18 | P.PNIM ---
Subjective Interval history: 53-year-old male with severe peripheral artery disease. He underwent angiogram today to evaluate left leg circulation and essentially the distal leg has no circulation is adequate for bypass as an option. He does have what seems to be adequate enough circulation to undergo a BKA of the left leg. Patient is reframing his expectations and is accepting of this new course of treatment. Physical Exam Vital signs: Last Vital Signs Temp 97.6 F 06/23/18 12:05 Pulse 60 06/23/18 12:35 Resp 16 06/23/18 12:20 BP 113/62 06/23/18 12:35 Pulse Ox 96 06/23/18 13:33 Intake & Output 06/21/18 06/22/18 06/23/18 06/24/18 06:59 06:59 06:59 06:59 Intake Total 2540 / 2540 300 / 300 1060 / 1060 Output Total 3600 / 3600 600 / 600 Balance 2540 / 2540 -3300 / -3300 460 / 460 Weight 102.7 kg 96.8 kg 96.8 kg Narrative: Gen.: No acute distress, attempting to remain optimistic despite the prospect of losing his left leg in addition to his right. Skin. Second toe of left foot is gangrenous under wrap, bruising. Large toe has a 1 cm ulceration on the top medial aspect Cardiovascular: Regular rate and rhythm. No murmurs, rubs or gallops. Respiratory: Lungs clear to auscultation bilaterally. No wheezes or rhonchi. Abdomen: Soft, distended, nontender. No peritoneal signs. Musculoskeletal: Right AKA. Status post amputation of second digit left foot. Poor circulation in left leg, skin appears dusky, cool to touch from near his knee to his foot Skin: Third digit of left foot gangrenous appearing Neuro: Sensory and motor grossly intact. Cranial nerves II through XII grossly intact. Results Labs CBC & Chem 7: 06/22/18 09:48 06/22/18 09:48 Labs: Microbiology 06/18/18 16:50 Blood - Peripheral Aerobic Blood Culture - Final No growth in 5 days 06/18/18 16:50 Blood - Peripheral Anaerobic Blood Culture - Final No growth in 5 days 06/18/18 16:45 Blood - Peripheral Aerobic Blood Culture - Final No growth in 5 days 06/18/18 16:45 Blood - Peripheral Anaerobic Blood Culture - Final No growth in 5 days Imaging Imaging: Impressions Lower Extremity Angiography 06/23/18 00:00 CONCLUSION: 1. Severe atherosclerotic disease involving the superficial femoral, the popliteal and tibial vessels as above. This is not amenable to endovascular repair. Assessment and Plan (1) Cellulitis: Code(s): L03.90 - Cellulitis, unspecified Status: Acute (2) Gangrene: Code(s): I96 - Gangrene, not elsewhere classified Status: Acute (3) S/P BKA (below knee amputation) unilateral: Code(s): Z89.519 - Acquired absence of unspecified leg below knee Status: Acute (4) Systolic and diastolic CHF, chronic: Code(s): I50.42 - Chronic combined systolic (congestive) and diastolic (congestive) heart failure Status: Chronic (5) CAD (coronary artery disease): Code(s): I25.10 - Atherosclerotic heart disease of [place] coronary artery without angina pectoris Status: Chronic (6) DM2 (diabetes mellitus, type 2): Code(s): E11.9 - Type 2 diabetes mellitus without complications Status: Chronic (7) ESRD (end stage renal disease) on dialysis: Code(s): N18.6 - End stage renal disease; Z99.2 - Dependence on renal dialysis Status: Chronic (8) Anemia: Code(s): D64.9 - Anemia, unspecified Status: Chronic Plan Toe cellulitis/gangrene History of severe atherosclerotic disease Imaging shows distal left femoral and popliteal arteries to be occluded Collateral circulation has compensated poorly over time as evidenced by a gangrenous toe, there is no adequate distal circulation to perform bypass Patient is recommended to undergo a left BKA tomorrow morning, n.p.o. after midnight Continuing vancomycin and aztreonam Blood cultures remain negative Appreciate vascular surgery consult Appreciate podiatry consult End-stage renal disease on dialysis Chronic. Nephrology consult appreciated. Continue dialysis per nephrology. Continue holding Aldactone and ACEi. Liver disease Patient reports he has had approximately 30 paracenteses. No shortness of breath. Complaining of abdominal distention 06/21. volume control with dialysis. Interventional radiology requested for paracentesis Diabetes mellitus Well controlled at this time. Continue sliding-scale insulin coverage Diabetic diet DVT Prophylaxis Heparin Discharge planning Patient will be undergoing left below the knee amputation tomorrow morning Progress Note: Quality VTE Deep Vein Thrombosis/Pulmonary Embolism Present on Admission: No _ (1) Cellulitis Qualifiers: Laterality: Site of cellulitis: Site of cellulitis of extremity: Site of cellulitis of trunk: (2) CAD (coronary artery disease) Qualifiers: Coronary Disease-Associated Artery/Lesion type: [place] artery [place] vs. transplanted heart: [place] heart Associated angina: without angina Qualified Code(s): I25.10 - Atherosclerotic heart disease of [place] coronary artery without angina pectoris (3) DM2 (diabetes mellitus, type 2) Qualifiers: Diabetes mellitus snf insulin use: Diabetes mellitus complication status: Diabetes mellitus complication detail: Diabetic retinopathy severity : Proliferative retinopathy type: Diabetes mellitus macular edema: Laterality: Chronic kidney disease stage: (4) Anemia Qualifiers: Anemia type: due to chronic kidney disease Iron deficiency anemia type: Vitamin B12 deficiency anemia type: Folate deficiency anemia type: Bone marrow failure anemia type: Hemolytic anemia type: Other causes of anemia: Chronic kidney disease stage: on chronic dialysis Qualified Code(s): N18.6 - End stage renal disease; D63.1 - Anemia in chronic kidney disease; Z99.2 - Dependence on renal dialysis
--- NOTE | 2018-06-23 17:38 | P.PNVS ---
Subjective Subjective/Hospital Course: Referral received Full consult to [facility] 06/20/2018 Patient evaluated and full consult dictated We will go ahead with CTA with runoff of the left leg and see if there is anything salvageable there either by endovascular or open means This patient has a very significant risk of losing his leg on the BKA level Details in the consult 06/21/2018 Patient with right above-knee amputation and remaining severe vascular occlusive disease in the left leg CTA reveals throughout calcification is very hard to tell if patient has occlusion of the vessels or any flow I suspect severe SFA and trifurcation disease with likely occlusion at least 1 or 2 vessels to the foot and probably severe vascular disease at the level of the ankle Will order angiogram with runoff in radiology and then decide if there is something we can address endovascularly If there is nothing to addressed endovascularly this patient will proceed to loses left leg 06/22/2018 Patient scheduled tomorrow to undergo formal angiogram and possible arterectomy SFA and popliteal artery are occluded and patient does not have any target vessel for bypass either femoral popliteal or femoral to distal bypass considering that trifurcation vessels and into nothing in bunch of little branches long-term the calf Foot remains cyanotic and cold and calf is cool as it was on my initial exam 20 June. I discussed this with patient now at length in the presence of his brother. Depending on the results of formal angiogram this patient will either have below -knee or above-knee amputation. Foot itself is not salvageable at this time no matter what. Patient and family understand this and agree with the plan 06/23/2018 Patient with severe ischemia of the left leg. Formal arteriogram results are in the record. Patient has peroneal artery with some reconstitution of the posterior tibial artery as the only supply below the level of the knee. At this point there is no reconstruction possible and this is the nonsalvageable situation I discussed this with Dr. Cardoso the interventional radiologist and we both agree on the further approach. I believe remaining vasculature may be sufficient to support below-knee amputation and therefore will proceed with the same tomorrow. Unfortunately there is a high likelihood that patient will eventually end up with above-knee amputation just like on the contralateral side. Discussed with patient in length and we will proceed with left below-knee amputation tomorrow Objective Vital Signs / I&O: Vital Signs 06/22/18 20:00 06/23/18 00:00 06/23/18 04:00 Temperature 97.3 F L 97.3 F L 97.7 F Pulse Rate 67 59 L 63 Respiratory Rate 18 18 18 Blood Pressure 135/77 142/78 H 112/66 Pulse Oximetry 92 L 92 L 92 L 06/23/18 08:00 06/23/18 12:05 06/23/18 12:20 Temperature 97.1 F L 97.6 F Pulse Rate 62 58 L 58 L Respiratory Rate 18 16 16 Blood Pressure 122/72 108/60 105/49 L Pulse Oximetry 94 L 100 99 06/23/18 12:35 06/23/18 13:33 06/23/18 16:00 Temperature 97.2 F L Pulse Rate 60 68 Respiratory Rate 18 Blood Pressure 113/62 119/69 Pulse Oximetry 97 96 92 L Intake & Output 06/22/18 06/23/18 06/23/18 18:59 06:59 18:59 Intake Total 720 / 720 340 / 340 Output Total 600 / 600 Balance 120 / 120 340 / 340 Weight 96.8 kg Intake: IV 100 / 100 Azactam Inj 2 GM In NS Inj 100 100 / 100 ML @ 200 mls/hr IV.SIG Q24H ADELINE Rx#:[id number] Oral 720 / 720 240 / 240 Output: Urine 600 / 600 Other: # Voids 3 Laboratory Results - last 24 hr 06/22/18 06/22/18 06/23/18 17:41 19:34 07:43 POC Glucose 225 H 212 H 138 H 06/23/18 06/23/18 14:11 17:02 POC Glucose 104 86 Microbiology 06/18/18 16:50 Aerobic Blood Culture - Final Blood - Peripheral No growth in 5 days Anaerobic Blood Culture - Final No growth in 5 days 06/18/18 16:45 Aerobic Blood Culture - Final Blood - Peripheral No growth in 5 days Anaerobic Blood Culture - Final No growth in 5 days Impressions Paracentesis Ultrasound 06/21/18 00:00 CONCLUSION: 1. Uncomplicated paracentesis. Lower Extremity Angiography 06/23/18 00:00 CONCLUSION: 1. Severe atherosclerotic disease involving the superficial femoral, the popliteal and tibial vessels as above. This is not amenable to endovascular repair.
--- NOTE | 2018-06-23 21:15 | P.PNNP ---
Subjective Interval history: Patient seen in the afternoon, no SOB, not in distress. Physical Exam Vital signs: Vital Signs 06/23/18 00:00 06/23/18 04:00 06/23/18 08:00 Temperature 97.3 F L 97.7 F 97.1 F L Pulse Rate 59 L 63 62 Respiratory Rate 18 18 18 Blood Pressure 142/78 H 112/66 122/72 Pulse Oximetry 92 L 92 L 94 L 06/23/18 12:05 06/23/18 12:20 06/23/18 12:35 Temperature 97.6 F Pulse Rate 58 L 58 L 60 Respiratory Rate 16 16 Blood Pressure 108/60 105/49 L 113/62 Pulse Oximetry 100 99 97 06/23/18 13:33 06/23/18 16:00 06/23/18 20:31 Temperature 97.2 F L Pulse Rate 68 Respiratory Rate 18 Blood Pressure 119/69 Pulse Oximetry 96 92 L 92 L Intake & Output 06/23/18 06/23/18 06/24/18 06:59 18:59 06:59 Intake Total 340 / 340 240 / 240 Balance 340 / 340 240 / 240 Weight 96.8 kg Intake: IV 100 / 100 Azactam Inj 2 GM In NS Inj 100 100 / 100 ML @ 200 mls/hr IV.SIG Q24H ADELINE Rx#:[id number] Oral 240 / 240 240 / 240 Other: # Voids 3 # Bowel Movements 2 Narrative: Gen.: No acute distress, attempting to remain optimistic despite the prospect of losing his left leg in addition to his right. Skin. Second toe of left foot is gangrenous under wrap, bruising. Large toe has a 1 cm ulceration on the top medial aspect Cardiovascular: Regular rate and rhythm. No murmurs, rubs or gallops. Respiratory: Lungs clear to auscultation bilaterally. No wheezes or rhonchi. Abdomen: Soft, distended, nontender. No peritoneal signs. Musculoskeletal: Right AKA. Status post amputation of second digit left foot. Poor circulation in left leg, skin appears dusky, cool to touch from near his knee to his foot Skin: Third digit of left foot gangrenous appearing Neuro: Sensory and motor grossly intact. Cranial nerves II through XII grossly intact. Assessment and Plan - Assessment (1) Cellulitis Code(s): L03.90 - Cellulitis, unspecified Status: Acute (2) Gangrene Code(s): I96 - Gangrene, not elsewhere classified Status: Acute (3) S/P BKA (below knee amputation) unilateral Code(s): Z89.519 - Acquired absence of unspecified leg below knee Status: Acute (4) Systolic and diastolic CHF, chronic Code(s): I50.42 - Chronic combined systolic (congestive) and diastolic ( congestive) heart failure Status: Chronic (5) CAD (coronary artery disease) Code(s): I25.10 - Atherosclerotic heart disease of [place] coronary artery without angina pectoris Status: Chronic Qualifiers: Coronary Disease-Associated Artery/Lesion type: [place] artery [place] vs. transplanted heart: [place] heart Associated angina: without angina Qualified Code(s): I25.10 - Atherosclerotic heart disease of [place] coronary artery without angina pectoris (6) DM2 (diabetes mellitus, type 2) Code(s): E11.9 - Type 2 diabetes mellitus without complications Status: Chronic Qualifiers: (7) ESRD (end stage renal disease) on dialysis Code(s): N18.6 - End stage renal disease; Z99.2 - Dependence on renal dialysis Status: Chronic (8) Anemia Code(s): D64.9 - Anemia, unspecified Status: Chronic Qualifiers: Anemia type: due to chronic kidney disease Chronic kidney disease stage: on chronic dialysis Qualified Code(s): N18.6 - End stage renal disease; D63.1 - Anemia in chronic kidney disease; Z99.2 - Dependence on renal dialysis - Plan Patient with end stage renal disease, on HD 3 times a week. Now admitted with foot finger cellulitis and gangrene. Patient to continue antibiotics. Angiogram done. Vascular follow up noted, will need AKA. Continue HD as per schedule.
[2018-06-23] MEDS: Aztreonam Inj 2 GM in Sodium Chloride 0.9% Inj 100 ML IV.SIG SCH (21:36)
[2018-06-24] MEDS: Heparin - SQ 10,000 UNITS/ML Vial SQ SCH ×2 (05:03→23:58)
[2018-06-24] MEDS: Insulin NovoLOG Aspart Correctional Sugar Inj SQ SCH ×3 (09:01→21:27)
[2018-06-24] MEDS: amLODIPine 5 MG Tablet PO SCH (09:04)
[2018-06-24] MEDS: Gabapentin 300 MG Capsule PO SCH ×2 (09:04→21:28)
[2018-06-24] MEDS: Ezetimibe 10 MG Tablet PO SCH (09:04)
[2018-06-24] MEDS: Carvedilol 12.5 MG Tablet PO SCH ×2 (09:05→21:32)
[2018-06-24] MEDS: Senna/Docusate Sodium 8.6/50 MG Tablet PO SCH ×2 (09:06→21:29)
[2018-06-24] MEDS ORDERED: Sodium Chlor 0.9% Inj 500 ML IV.CONT ONE (11:45)
[2018-06-24] MEDS ORDERED: Chlorhexidine Gluconate 2% 1 Pack (2 Cloths) TOPICAL ONE (11:45)
[2018-06-24] MEDS ORDERED: Sugammadex Inj 200 MG/2 ML Vial IV.PUSH ONE (13:18)
[2018-06-24] MEDS ORDERED: Bupivacaine PF 0.5% Inj 30 ML Vial ONE (13:24)
[2018-06-24] MEDS ORDERED: ceFAZolin Inj 1 GM Vial (Addvantage) IV.SIG ONE (13:34)
[2018-06-24] MEDS ORDERED: Atropine Inj 1 MG/10 ML Syringe ONE (15:29)
[2018-06-24] MEDS ORDERED: DOPamine 800 MG/500 ML Premix 800 MG/500 ML PLAST..BAG IV.CONT ONE (15:31)
[2018-06-24] MEDS ORDERED: Sodium Bicarbonate 8.4% Inj 50 MEQ/50 ML Syringe ONE (15:40)
[2018-06-24] MEDS ORDERED: Calcium Chloride Inj 1 GM/10 ML Syringe ONE (15:41)
[2018-06-24] MEDS ORDERED: fentaNYL Citrate Inj 100 MCG/2 ML Ampul ONE (15:46)
[2018-06-24 15:59] LABS: Baso # (Auto) 0.2 th/mm3 (0.0-0.2); Baso % (Auto) 2.3 % (0.0-2.0); Eos # (Auto) 0.2 th/mm3 (0.0-0.4); Eos % (Auto) 2.5 % (0.0-4.0); Hematocrit 26.9 % (39.0-51.0); Hemoglobin 8.8 gm/dL (13.0-17.0); Lymph # (Auto) 0.7 th/mm3 (1.0-4.8); Lymph % (Auto) 8.2 % (9.0-44.0); Mean Corpuscular HGB Conc 32.8 % (32.0-36.0); Mean Corpuscular Hemoglobin 32.2 pg (27.0-34.0); Mean Corpuscular Volume 98.2 fL (80.0-100.0); Mean Platelet Volume 8.4 fL (7.0-11.0); Mono # (Auto) 0.3 th/mm3 (0.0-0.9); Mono % (Auto) 3.5 % (0.0-8.0); Neut # (Auto) 6.8 th/mm3 (1.8-7.7); Neut % (Auto) 83.5 % (16.0-70.0); Platelet Count 203 th/mm3 (150-450); Red Blood Count 2.74 mil/mm3 (4.50-5.90); Red Cell Distribution Width 16.6 % (11.6-17.2); White Blood Count 8.2 th/mm3 (4.0-11.0)
[2018-06-24 16:03] LABS: Calcium 7.4 mg/dL (8.5-10.1); Carbon Dioxide 22.3 meq/L (21.0-32.0)
--- NOTE | 2018-06-24 16:09 | XR ---
EXAM DATE: 06/24/2018 3:56 PM EST AGE/SEX: 53 years / Male INDICATIONS: Pulmonary edema CLINICAL DATA: This is the patient's initial encounter. Patient reports that signs and symptoms have been present for 4 - 6 days and indicates a pain score of Nonresponsive. MEDICAL/SURGICAL HISTORY: . CHF, Diabetes, CAD, ESRD, HTN, Myocardial infarction. . . Complet e right below the knee amputation, Hernia repair. COMPARISON: [facility], CHEST 1V SINGLE AP, 06/18/2018. . FINDINGS: There is increased interstitial markings and prominence of the pulmonary vasculature suggestive of ve nous congestion and/or edema. The heart size remains diffusely enlarged but stable compared to the pr ior examination. There continues to be some parenchymal consolidation the right lower lung. The left lower lung is grossly clear. There is no evidence of pneumothorax. The overall findings are about the same compared to the prior examination. The bony structures are stable. CONCLUSION: 1. Diffuse prominent cardiomegaly. 2. Pulmonary venous congestion versus pulmonary edema. 3. Parenchymal consolidation/infiltrate in the right lung base without significant change compared t o the prior exam. Electronically signed by: Mo Enrique MD Board Certified Radiologist 06/24/2018 4:08 PM EST
[2018-06-24 16:11] LABS: Potassium 7.3 meq/L (3.5-5.1)
[2018-06-24 16:23] LABS: Albumin 1.8 g/dL (3.4-5.0); Calcium-Albumin Corrected 9.2 mg/dL (8.5-10.1)
--- NOTE | 2018-06-24 16:23 | MP ---
cc: Kimani Field MD DATE OF OPERATION: 06/24/2018 PREOPERATIVE DIAGNOSES: 1. Gangrene of the left foot. 2. Ischemia of the left leg. POSTOPERATIVE DIAGNOSES: 1. Gangrene of the left foot. 2. Ischemia of the left leg. PROCEDURE PERFORMED: Left below-knee amputation. SURGEON: Kimani Field MD ANESTHESIA: General. ESTIMATED BLOOD LOSS: 100 mL PROCEDURE IN DETAIL: The patient prepped and draped in the usual sterile fashion and incision is marked with a silk indentation. Incision is made with a 10-blade anteriorly over the tibia, carried down medially and laterally, inferiorly to create posterior flap. With cautery, soft tissues were divided. The anterior tibial artery and veins are clamped, divided, and ligated with 0-Vicryl stick ties. The tibia is now freed up with periosteal elevator and so is the fibula. The tourniquet was inflated over and tie and now the bone is transected with the oscillating saw about an inch and a half above the level of the skin incision. Once the fibula and tibia are transected a large amputation Rebecca knife was used to create posterior flap and remove the specimen. The trifurcation is ligated with 0-Vicryl stick ties, although there is minimal bleeding from this. Several other small bleeders are ligated with 2-0 Vicryl stick ties. Then area irrigated with copious amounts of saline and then the posterior flap flipped forward. It appears to have fairly okay vascularized and I believe it might hold with collateral circulation. Deep fascia 0-Prolene; superficial fascia 0-Prolene was used to close the stump; and skin was closed with 2-0 Prolene interrupted stitches. The patient tolerated the procedure well and was taken to the recovery room in stable condition. It should be noted, I got a call from the recovery room from Dr. eLon, the anesthesiologist. The patient is probably in respiratory insufficiency, may be congestive failure; will need to be transferred to ICU for postop care. MD MARTA Anderson/neyda , 04:04 PM , 04:12 PM
[2018-06-24] MEDS ORDERED: Sodium Polystyrene Sulfate 30 GM/120 ML Enema RECTAL ONE (16:28)
--- NOTE | 2018-06-24 16:37 | P.PNCC ---
Subjective Subjective Remarks/Hospital Course: Interval history: 53-year-old male with severe peripheral artery disease. He underwent angiogram today to evaluate left leg circulation and essentially the distal leg has no circulation is adequate for bypass as an option. He does have what seems to be adequate enough circulation to undergo a BKA of the left leg. Patient is reframing his expectations and is accepting of this new course of treatment. 06/24: Requiring dopamine for support. K 7.3. Transfer to ICU. Objective Vital Signs / I&O: Vital Signs 06/23/18 20:00 06/23/18 20:31 06/23/18 22:32 Temperature 97.4 F L Pulse Rate 64 Respiratory Rate 18 18 Blood Pressure 110/52 L Pulse Oximetry 92 L 92 L 06/24/18 00:00 06/24/18 03:41 06/24/18 04:00 Temperature 97.6 F 97.1 F L Pulse Rate 64 65 Respiratory Rate 18 19 18 Blood Pressure 120/56 L 120/56 L Pulse Oximetry 92 L 92 L 06/24/18 05:45 06/24/18 07:12 06/24/18 08:00 Temperature 97.7 F Pulse Rate 59 L Respiratory Rate 19 19 18 Blood Pressure 113/57 L Pulse Oximetry 90 L 06/24/18 15:29 06/24/18 15:45 06/24/18 16:00 Temperature 97.4 F L Pulse Rate 47 L 64 68 Respiratory Rate 25 H 21 17 Blood Pressure 96/55 L 108/54 L 116/56 L Pulse Oximetry 93 L 93 L 92 L 06/24/18 16:15 Temperature Pulse Rate 65 Respiratory Rate 18 Blood Pressure 104/51 L Pulse Oximetry 96 Intake & Output 06/23/18 06/24/18 06/24/18 18:59 06:59 18:59 Intake Total 240 / 240 100 / 100 300 / 300 Output Total 150 / 150 Balance 240 / 240 100 / 100 150 / 150 Weight 96.8 kg Intake: IV 100 / 100 Azactam Inj 2 GM In NS Inj 100 100 / 100 ML @ 200 mls/hr IV.SIG Q24H ADELINE Rx#:[id number] Oral 240 / 240 0 / 0 Anesthesia Amount 300 / 300 Output: Estimated Blood Loss 150 / 150 Other: # Voids 2 # Bowel Movements 2 Result Diagrams: 06/24/18 15:25 06/24/18 15:25 Objective Remarks: Gen: Somnolent Head: Normal Lungs: Lungs, breathing comfortable. Heart: Transmitted systolic murmur. Abdomen: Soft Extremities: Well perfused, lowers s/p BKA Neuro: Somnolent,moves 4 limbs. Assessment and Plan - Assessment and Plan Plan: Assessment and Plan (1) Cellulitis: Code(s): L03.90 - Cellulitis, unspecified Status: Acute (2) Gangrene: Code(s): I96 - Gangrene, not elsewhere classified Status: Acute (3) S/P BKA (below knee amputation) unilateral: Code(s): Z89.519 - Acquired absence of unspecified leg below knee Status: Acute (4) Systolic and diastolic CHF, chronic: Code(s): I50.42 - Chronic combined systolic (congestive) and diastolic (congestive) heart failure Status: Chronic (5) CAD (coronary artery disease): Code(s): I25.10 - Atherosclerotic heart disease of [place] coronary artery without angina pectoris Status: Chronic (6) DM2 (diabetes mellitus, type 2): Code(s): E11.9 - Type 2 diabetes mellitus without complications Status: Chronic (7) ESRD (end stage renal disease) on dialysis: Code(s): N18.6 - End stage renal disease; Z99.2 - Dependence on renal dialysis Status: Chronic (8) Anemia: Code(s): D64.9 - Anemia, unspecified Status: Chronic Plan Toe cellulitis/gangrene History of severe atherosclerotic disease Imaging shows distal left femoral and popliteal arteries to be occluded Collateral circulation has compensated poorly over time as evidenced by a gangrenous toe, there is no adequate distal circulation to perform bypass Continuing vancomycin and aztreonam Blood cultures remain negative Appreciate vascular surgery consult Appreciate podiatry consult S/P left BKA 06/24. End-stage renal disease on dialysis Chronic. Nephrology consult appreciated. Continue dialysis per nephrology. Continue holding Aldactone and ACEi. K 7.3 - dialysis Liver disease Patient reports he has had approximately 30 paracenteses. No shortness of breath. Complaining of abdominal distention 06/21. volume control with dialysis. Interventional radiology requested for paracentesis Diabetes mellitus Well controlled at this time. Continue sliding-scale insulin coverage DVT Prophylaxis Heparin Overall impression: Critically ill with left threatening hyperkalemia and no base deficit; no quick fix. Needs emergency dialysis. Has received medical therapy. _ (1) Cellulitis Qualifiers: Laterality: Site of cellulitis: Site of cellulitis of extremity: Site of cellulitis of trunk: (2) CAD (coronary artery disease) Qualifiers: Coronary Disease-Associated Artery/Lesion type: [place] artery [place] vs. transplanted heart: [place] heart Associated angina: without angina Qualified Code(s): I25.10 - Atherosclerotic heart disease of [place] coronary artery without angina pectoris (3) DM2 (diabetes mellitus, type 2) Qualifiers: Diabetes mellitus termite treater helper insulin use: Diabetes mellitus complication status: Diabetes mellitus complication detail: Diabetic retinopathy severity : Proliferative retinopathy type: Diabetes mellitus macular edema: Laterality: Chronic kidney disease stage: (4) Anemia Qualifiers: Anemia type: due to chronic kidney disease Iron deficiency anemia type: Vitamin B12 deficiency anemia type: Folate deficiency anemia type: Bone marrow failure anemia type: Hemolytic anemia type: Other causes of anemia: Chronic kidney disease stage: on chronic dialysis Qualified Code(s): N18.6 - End stage renal disease; D63.1 - Anemia in chronic kidney disease; Z99.2 - Dependence on renal dialysis
[2018-06-24] MEDS ORDERED: DOPamine 800 MG/500 ML Premix 800 MG/500 ML PLAST..BAG IV.CONT PRN (17:08)
--- NOTE | 2018-06-24 20:57 | P.PNNP ---
Subjective Interval history: Patient seen after the surgery, while on HD , remain lethargic. Physical Exam Vital signs: Vital Signs 06/23/18 22:32 06/24/18 00:00 06/24/18 03:41 Temperature 97.6 F Pulse Rate 64 Respiratory Rate 18 18 19 Blood Pressure 120/56 L Pulse Oximetry 92 L 06/24/18 04:00 06/24/18 05:45 06/24/18 07:12 Temperature 97.1 F L Pulse Rate 65 Respiratory Rate 18 19 19 Blood Pressure 120/56 L Pulse Oximetry 92 L 06/24/18 08:00 06/24/18 15:29 06/24/18 15:45 Temperature 97.7 F 97.4 F L Pulse Rate 59 L 47 L 64 Respiratory Rate 18 25 H 21 Blood Pressure 113/57 L 96/55 L 108/54 L Pulse Oximetry 90 L 93 L 93 L 06/24/18 16:00 06/24/18 16:15 06/24/18 16:30 Temperature 98.5 F Pulse Rate 68 65 73 Respiratory Rate 17 18 15 Blood Pressure 116/56 L 104/51 L 118/55 L Pulse Oximetry 92 L 96 96 06/24/18 16:45 06/24/18 18:00 Temperature Pulse Rate 74 Respiratory Rate 14 Blood Pressure 113/48 L Pulse Oximetry 96 96 Intake & Output 06/24/18 06/24/18 06/25/18 06:59 18:59 06:59 Intake Total 100 / 100 300 / 300 Output Total 150 / 150 1000 / 1000 Balance 100 / 100 150 / 150 -1000 / -1000 Weight 96.8 kg Intake: IV 100 / 100 Azactam Inj 2 GM In NS Inj 100 100 / 100 ML @ 200 mls/hr IV.SIG Q24H ADELINE Rx#:[id number] Oral 0 / 0 0 / 0 Anesthesia Amount 300 / 300 Output: Urine 0 / 0 Hemodialysis Amount 1000 / 1000 Estimated Blood Loss 150 / 150 Other: # Voids 2 Date of Last Bowel Movement 06/18/18 Narrative: Gen.: No acute distress, attempting to remain optimistic despite the prospect of losing his left leg in addition to his right. Skin. Second toe of left foot is gangrenous under wrap, bruising. Large toe has a 1 cm ulceration on the top medial aspect Cardiovascular: Regular rate and rhythm. No murmurs, rubs or gallops. Respiratory: Lungs clear to auscultation bilaterally. No wheezes or rhonchi. Abdomen: Soft, distended, nontender. No peritoneal signs. Musculoskeletal: Right AKA. Status post amputation of second digit left foot. Poor circulation in left leg, skin appears dusky, cool to touch from near his knee to his foot Skin: Third digit of left foot gangrenous appearing Neuro: Sensory and motor grossly intact. Cranial nerves II through XII grossly intact. Assessment and Plan - Assessment (1) Cellulitis Code(s): L03.90 - Cellulitis, unspecified Status: Acute (2) Gangrene Code(s): I96 - Gangrene, not elsewhere classified Status: Acute (3) S/P BKA (below knee amputation) unilateral Code(s): Z89.519 - Acquired absence of unspecified leg below knee Status: Acute (4) Systolic and diastolic CHF, chronic Code(s): I50.42 - Chronic combined systolic (congestive) and diastolic ( congestive) heart failure Status: Chronic (5) CAD (coronary artery disease) Code(s): I25.10 - Atherosclerotic heart disease of [place] coronary artery without angina pectoris Status: Chronic Qualifiers: Coronary Disease-Associated Artery/Lesion type: [place] artery [place] vs. transplanted heart: [place] heart Associated angina: without angina Qualified Code(s): I25.10 - Atherosclerotic heart disease of [place] coronary artery without angina pectoris (6) DM2 (diabetes mellitus, type 2) Code(s): E11.9 - Type 2 diabetes mellitus without complications Status: Chronic Qualifiers: (7) ESRD (end stage renal disease) on dialysis Code(s): N18.6 - End stage renal disease; Z99.2 - Dependence on renal dialysis Status: Chronic (8) Anemia Code(s): D64.9 - Anemia, unspecified Status: Chronic Qualifiers: Anemia type: due to chronic kidney disease Chronic kidney disease stage: on chronic dialysis Qualified Code(s): N18.6 - End stage renal disease; D63.1 - Anemia in chronic kidney disease; Z99.2 - Dependence on renal dialysis - Plan Patient with end stage renal disease, on HD 3 times a week. Now admitted with foot finger cellulitis and gangrene. Patient to continue antibiotics. Angiogram done. Patient has AKA done. Post OP develop severe Hyperkalemia, Now on HD with low [place]. BP is stable, not removing much fluid, about 1 liter only.
[2018-06-24] MEDS: Aztreonam Inj 2 GM in Sodium Chloride 0.9% Inj 100 ML IV.SIG SCH (21:33)
[2018-06-25] MEDS: Morphine Inj 4 MG/ML Vial IV.PUSH PRN ×6 (00:11→20:59)
[2018-06-25] MEDS: Heparin - SQ 10,000 UNITS/ML Vial SQ SCH ×3 (06:00→21:55)
[2018-06-25 06:44] LABS: Baso % (Auto) 0.3 % (0.0-2.0); Eos % (Auto) 0.1 % (0.0-4.0); Hematocrit 26.8 % (39.0-51.0); Hemoglobin 8.9 gm/dL (13.0-17.0); Lymph # (Auto) 0.5 th/mm3 (1.0-4.8); Lymph % (Auto) 5.5 % (9.0-44.0); Mean Corpuscular HGB Conc 33.1 % (32.0-36.0); Mean Corpuscular Hemoglobin 31.6 pg (27.0-34.0); Mean Corpuscular Volume 95.3 fL (80.0-100.0); Mono # (Auto) 0.3 th/mm3 (0.0-0.9); Mono % (Auto) 3.2 % (0.0-8.0); Neut # (Auto) 8.3 th/mm3 (1.8-7.7); Neut % (Auto) 90.9 % (16.0-70.0); Platelet Count 212 th/mm3 (150-450); Red Blood Count 2.82 mil/mm3 (4.50-5.90); Red Cell Distribution Width 16.1 % (11.6-17.2); White Blood Count 9.1 th/mm3 (4.0-11.0)
[2018-06-25 07:13] LABS: Albumin 1.9 g/dL (3.4-5.0); Carbon Dioxide 26.5 meq/L (21.0-32.0); Phosphorus 8.7 mg/dL (2.5-4.9); Potassium 5.4 meq/L (3.5-5.1)
[2018-06-25] MEDS: Ezetimibe 10 MG Tablet PO SCH (08:30)
[2018-06-25] MEDS: Senna/Docusate Sodium 8.6/50 MG Tablet PO SCH ×2 (08:30→20:53)
[2018-06-25] MEDS: Gabapentin 300 MG Capsule PO SCH ×2 (08:30→20:52)
[2018-06-25] MEDS: Carvedilol 12.5 MG Tablet PO SCH ×2 (08:30→20:53)
[2018-06-25] MEDS: amLODIPine 5 MG Tablet PO SCH (08:31)
[2018-06-25] MEDS: Insulin NovoLOG Aspart Correctional Sugar Inj SQ SCH ×4 (12:16→23:39)
--- NOTE | 2018-06-25 12:50 | P.PNNP ---
Subjective Interval history: Sitting up in bed eating, with family at bedside. Denies any shortness of breath, chest pain, nausea, or vomiting. Pain is well controlled. <Padmini Walton - Last Filed: 06/25/18 12:44> Physical Exam Vital signs: Vital Signs 06/24/18 15:29 06/24/18 15:45 06/24/18 16:00 Temperature 97.4 F L Pulse Rate 47 L 64 68 Respiratory Rate 25 H 21 17 Blood Pressure 96/55 L 108/54 L 116/56 L Pulse Oximetry 93 L 93 L 92 L 06/24/18 16:15 06/24/18 16:30 06/24/18 16:45 Temperature 98.5 F Pulse Rate 65 73 74 Respiratory Rate 18 15 14 Blood Pressure 104/51 L 118/55 L 113/48 L Pulse Oximetry 96 96 96 06/24/18 16:56 06/24/18 16:57 06/24/18 17:00 Temperature Pulse Rate 81 82 Respiratory Rate 12 14 Blood Pressure 125/59 L Pulse Oximetry 90 L 91 L 91 L 06/24/18 18:00 06/24/18 19:00 06/24/18 20:00 Temperature 98.2 F Pulse Rate 83 88 95 H Respiratory Rate 14 14 15 Blood Pressure 141/65 H Pulse Oximetry 94 L 96 93 L 06/24/18 21:00 06/24/18 22:00 06/24/18 22:10 Temperature Pulse Rate 93 H 97 H 95 H Respiratory Rate 20 27 H 24 Blood Pressure 137/63 Pulse Oximetry 99 99 97 06/24/18 23:00 06/24/18 23:27 06/24/18 23:46 Temperature Pulse Rate 94 H 96 H 97 H Respiratory Rate 34 H 27 H 16 Blood Pressure 146/67 H 144/63 H Pulse Oximetry 84 L 94 L 90 L 06/25/18 00:00 06/25/18 00:15 06/25/18 00:23 Temperature 98.3 F Pulse Rate 92 H 91 H Respiratory Rate 19 21 Blood Pressure 130/56 L 145/67 H Pulse Oximetry 93 L 98 99 06/25/18 00:30 06/25/18 00:45 06/25/18 01:00 Temperature Pulse Rate 91 H 89 90 Respiratory Rate 28 H 14 19 Blood Pressure 140/67 144/65 H 141/63 H Pulse Oximetry 94 L 97 97 06/25/18 01:15 06/25/18 01:30 06/25/18 01:45 Temperature Pulse Rate 87 87 87 Respiratory Rate 18 16 22 Blood Pressure 139/61 134/58 L 137/65 Pulse Oximetry 06/25/18 02:00 06/25/18 02:15 06/25/18 02:30 Temperature Pulse Rate 87 87 87 Respiratory Rate 25 H 18 21 Blood Pressure 109/55 L 119/58 L 110/58 L Pulse Oximetry 06/25/18 02:45 06/25/18 03:00 06/25/18 03:15 Temperature Pulse Rate 86 86 85 Respiratory Rate 17 24 11 L Blood Pressure 121/59 L 108/57 L 112/54 L Pulse Oximetry 06/25/18 03:30 06/25/18 03:45 06/25/18 04:00 Temperature 98.7 F Pulse Rate 84 86 84 Respiratory Rate 13 21 17 Blood Pressure 131/60 121/55 L 120/58 L Pulse Oximetry 06/25/18 04:15 06/25/18 04:30 06/25/18 04:45 Temperature Pulse Rate 83 81 82 Respiratory Rate 20 9 L 26 H Blood Pressure 120/58 L 106/55 L 112/61 Pulse Oximetry 100 06/25/18 05:00 06/25/18 05:15 06/25/18 06:00 Temperature Pulse Rate 82 80 82 Respiratory Rate 20 23 19 Blood Pressure 128/66 135/64 Pulse Oximetry 98 96 91 L 06/25/18 06:38 Temperature Pulse Rate 81 Respiratory Rate 15 Blood Pressure 136/63 Pulse Oximetry Intake & Output 06/24/18 06/25/18 06/25/18 18:59 06:59 18:59 Intake Total 300 / 300 200 / 200 Output Total 150 / 150 1000 / 1000 Balance 150 / 150 -800 / -800 Weight 102 kg Intake: IV 100 / 100 Azactam Inj 2 GM In NS Inj 100 100 / 100 ML @ 200 mls/hr IV.SIG Q24H ADELINE Rx#:[id number] Oral 0 / 0 100 / 100 Anesthesia Amount 300 / 300 Output: Urine 0 / 0 0 / 0 Hemodialysis Amount 1000 / 1000 Estimated Blood Loss 150 / 150 Other: Date of Last Bowel Movement 06/18/18 06/18/18 # Bowel Movements 0 Narrative: GENERAL: alert and oriented. SKIN: Warm and dry. NECK: Supple, trachea midline. No JVD. CARDIOVASCULAR: Regular rate and rhythm without murmurs, gallops, or rubs. Left arm AVF positive thrill and bruit. RESPIRATORY: Breath sounds equal bilaterally. No accessory muscle use. GASTROINTESTINAL: Abdomen soft, non-tender, nondistended. MUSCULOSKELETAL: No cyanosis, or edema. Right AKA. Left BKA with HERB on . BACK: Nontender without obvious deformity. No CVA tenderness. <Padmini Walton - Last Filed: 06/25/18 12:44> Vital signs: Vital Signs 06/24/18 21:00 06/24/18 22:00 06/24/18 22:10 Temperature Pulse Rate 93 H 97 H 95 H Respiratory Rate 20 27 H 24 Blood Pressure 137/63 Pulse Oximetry 99 99 97 06/24/18 23:00 06/24/18 23:27 06/24/18 23:46 Temperature Pulse Rate 94 H 96 H 97 H Respiratory Rate 34 H 27 H 16 Blood Pressure 146/67 H 144/63 H Pulse Oximetry 84 L 94 L 90 L 06/25/18 00:00 06/25/18 00:15 06/25/18 00:23 Temperature 98.3 F Pulse Rate 92 H 91 H Respiratory Rate 19 21 Blood Pressure 130/56 L 145/67 H Pulse Oximetry 93 L 98 99 06/25/18 00:30 06/25/18 00:45 06/25/18 01:00 Temperature Pulse Rate 91 H 89 90 Respiratory Rate 28 H 14 19 Blood Pressure 140/67 144/65 H 141/63 H Pulse Oximetry 94 L 97 97 06/25/18 01:15 06/25/18 01:30 06/25/18 01:45 Temperature Pulse Rate 87 87 87 Respiratory Rate 18 16 22 Blood Pressure 139/61 134/58 L 137/65 Pulse Oximetry 06/25/18 02:00 06/25/18 02:15 06/25/18 02:30 Temperature Pulse Rate 87 87 87 Respiratory Rate 25 H 18 21 Blood Pressure 109/55 L 119/58 L 110/58 L Pulse Oximetry 06/25/18 02:45 06/25/18 03:00 06/25/18 03:15 Temperature Pulse Rate 86 86 85 Respiratory Rate 17 24 11 L Blood Pressure 121/59 L 108/57 L 112/54 L Pulse Oximetry 06/25/18 03:30 06/25/18 03:45 06/25/18 04:00 Temperature 98.7 F Pulse Rate 84 86 84 Respiratory Rate 13 21 17 Blood Pressure 131/60 121/55 L 120/58 L Pulse Oximetry 06/25/18 04:15 06/25/18 04:30 06/25/18 04:45 Temperature Pulse Rate 83 81 82 Respiratory Rate 20 9 L 26 H Blood Pressure 120/58 L 106/55 L 112/61 Pulse Oximetry 100 06/25/18 05:00 06/25/18 05:15 06/25/18 06:00 Temperature Pulse Rate 82 80 82 Respiratory Rate 20 23 19 Blood Pressure 128/66 135/64 Pulse Oximetry 98 96 91 L 06/25/18 06:38 06/25/18 07:00 06/25/18 07:30 Temperature Pulse Rate 81 80 81 Respiratory Rate 15 18 16 Blood Pressure 136/63 135/64 106/56 L Pulse Oximetry 06/25/18 07:46 06/25/18 07:58 06/25/18 08:00 Temperature 97.4 F L Pulse Rate 79 78 Respiratory Rate 23 11 L Blood Pressure 138/62 133/66 Pulse Oximetry 06/25/18 08:03 06/25/18 08:30 06/25/18 09:00 Temperature Pulse Rate 78 78 Respiratory Rate 24 13 Blood Pressure 146/68 H Pulse Oximetry 94 L 100 06/25/18 09:08 06/25/18 10:00 06/25/18 10:08 Temperature Pulse Rate 78 76 77 Respiratory Rate 14 18 21 Blood Pressure 143/67 H 135/65 Pulse Oximetry 99 93 L 91 L 06/25/18 11:00 06/25/18 11:08 06/25/18 12:00 Temperature 97.6 F Pulse Rate 74 74 74 Respiratory Rate 11 L 15 13 Blood Pressure 126/60 Pulse Oximetry 91 L 97 99 06/25/18 12:08 06/25/18 13:00 06/25/18 13:08 Temperature Pulse Rate 73 71 74 Respiratory Rate 16 8 L 18 Blood Pressure 142/65 H 136/65 Pulse Oximetry 100 99 100 06/25/18 14:00 06/25/18 14:08 06/25/18 15:00 Temperature Pulse Rate 72 72 71 Respiratory Rate 13 17 19 Blood Pressure 107/55 L Pulse Oximetry 06/25/18 15:24 06/25/18 16:00 06/25/18 16:08 Temperature 98 F Pulse Rate 72 72 73 Respiratory Rate 24 14 16 Blood Pressure 134/60 126/63 Pulse Oximetry 06/25/18 16:18 06/25/18 17:00 06/25/18 17:08 Temperature Pulse Rate 70 70 Respiratory Rate 29 H 20 Blood Pressure 137/64 Pulse Oximetry 98 92 L 06/25/18 18:00 06/25/18 18:08 06/25/18 19:00 Temperature Pulse Rate 72 70 72 Respiratory Rate 29 H 20 8 L Blood Pressure 126/59 L Pulse Oximetry 06/25/18 19:08 06/25/18 20:00 06/25/18 20:08 Temperature Pulse Rate 72 71 70 Respiratory Rate Blood Pressure 120/59 L 119/60 Pulse Oximetry 99 Intake & Output 06/25/18 06/25/18 06/26/18 06:59 18:59 06:59 Intake Total 200 / 200 800 / 800 Output Total 1000 / 1000 0 / 0 Balance -800 / -800 800 / 800 Weight 102 kg Intake: IV 100 / 100 Azactam Inj 2 GM In NS Inj 100 100 / 100 ML @ 200 mls/hr IV.SIG Q24H ADELINE Rx#:[id number] Oral 100 / 100 800 / 800 Output: Urine 0 / 0 0 / 0 Hemodialysis Amount 1000 / 1000 Other: Date of Last Bowel Movement 06/18/18 06/18/18 # Bowel Movements 0 <Chele Reid - Last Filed: 06/25/18 20:35> Assessment and Plan - Assessment (1) Cellulitis Code(s): L03.90 - Cellulitis, unspecified Status: Acute (2) Gangrene Code(s): I96 - Gangrene, not elsewhere classified Status: Acute (3) S/P BKA (below knee amputation) unilateral Code(s): Z89.519 - Acquired absence of unspecified leg below knee Status: Acute (4) Systolic and diastolic CHF, chronic Code(s): I50.42 - Chronic combined systolic (congestive) and diastolic ( congestive) heart failure Status: Chronic (5) CAD (coronary artery disease) Code(s): I25.10 - Atherosclerotic heart disease of [place] coronary artery without angina pectoris Status: Chronic Qualifiers: Coronary Disease-Associated Artery/Lesion type: [place] artery [place] vs. transplanted heart: [place] heart Associated angina: without angina Qualified Code(s): I25.10 - Atherosclerotic heart disease of [place] coronary artery without angina pectoris (6) DM2 (diabetes mellitus, type 2) Code(s): E11.9 - Type 2 diabetes mellitus without complications Status: Chronic (7) ESRD (end stage renal disease) on dialysis Code(s): N18.6 - End stage renal disease; Z99.2 - Dependence on renal dialysis Status: Chronic (8) Anemia Code(s): D64.9 - Anemia, unspecified Status: Chronic Qualifiers: Anemia type: due to chronic kidney disease Chronic kidney disease stage: on chronic dialysis Qualified Code(s): N18.6 - End stage renal disease; D63.1 - Anemia in chronic kidney disease; Z99.2 - Dependence on renal dialysis - Plan Patient with end stage renal disease, on HD 3 times a week. Thursday//Thursday Admitted with foot finger cellulitis and gangrene. S/P left BKA 1/3 HD yesterday post op for hyperkalemia, UF of 1 liter HD planned for tomorrow, will remove fluid as tolerated. Potassium at 5.4, renal diet, potassium reduced in diet. Phosphorus elevated, phoslo added Epogen and vancomycin with dialysis Labs in AM <Padmini Walton - Last Filed: 06/25/18 12:44> - Assessment (1) Cellulitis Code(s): L03.90 - Cellulitis, unspecified Status: Acute (2) Gangrene Code(s): I96 - Gangrene, not elsewhere classified Status: Acute (3) S/P BKA (below knee amputation) unilateral Code(s): Z89.519 - Acquired absence of unspecified leg below knee Status: Acute (4) Systolic and diastolic CHF, chronic Code(s): I50.42 - Chronic combined systolic (congestive) and diastolic ( congestive) heart failure Status: Chronic (5) CAD (coronary artery disease) Code(s): I25.10 - Atherosclerotic heart disease of [place] coronary artery without angina pectoris Status: Chronic Qualifiers: Coronary Disease-Associated Artery/Lesion type: [place] artery [place] vs. transplanted heart: [place] heart Associated angina: without angina Qualified Code(s): I25.10 - Atherosclerotic heart disease of [place] coronary artery without angina pectoris (6) DM2 (diabetes mellitus, type 2) Code(s): E11.9 - Type 2 diabetes mellitus without complications Status: Chronic Qualifiers: (7) ESRD (end stage renal disease) on dialysis Code(s): N18.6 - End stage renal disease; Z99.2 - Dependence on renal dialysis Status: Chronic (8) Anemia Code(s): D64.9 - Anemia, unspecified Status: Chronic Qualifiers: Anemia type: due to chronic kidney disease Chronic kidney disease stage: on chronic dialysis Qualified Code(s): N18.6 - End stage renal disease; D63.1 - Anemia in chronic kidney disease; Z99.2 - Dependence on renal dialysis - Plan Patient seen and examined, agree with above. HD was done yesterday, now K is normal. BP is stable, HD will be in AM. <Chele Reid - Last Filed: 06/25/18 20:35>
[2018-06-25] MEDS: Calcium Acetate 667 MG Capsule PO SCH ×2 (14:00→18:32)
--- NOTE | 2018-06-25 14:39 | P.PNCC ---
Subjective Subjective Remarks/Hospital Course: Interval history: 53-year-old male with severe peripheral artery disease. He underwent angiogram today to evaluate left leg circulation and essentially the distal leg has no circulation is adequate for bypass as an option. He does have what seems to be adequate enough circulation to undergo a BKA of the left leg. Patient is reframing his expectations and is accepting of this new course of treatment. 06/24: Requiring dopamine for support. K 7.3. Transfer to ICU. 06/25: Tolerated dialysis well last evening. Potassium 5.4 this morning. Renal service aware. Advance renal diet. Leg dressing dry and clean. Objective Vital Signs / I&O: Vital Signs 06/24/18 15:29 06/24/18 15:45 06/24/18 16:00 Temperature 97.4 F L Pulse Rate 47 L 64 68 Respiratory Rate 25 H 21 17 Blood Pressure 96/55 L 108/54 L 116/56 L Pulse Oximetry 93 L 93 L 92 L 06/24/18 16:15 06/24/18 16:30 06/24/18 16:45 Temperature 98.5 F Pulse Rate 65 73 74 Respiratory Rate 18 15 14 Blood Pressure 104/51 L 118/55 L 113/48 L Pulse Oximetry 96 96 96 06/24/18 16:56 06/24/18 16:57 06/24/18 17:00 Temperature Pulse Rate 81 82 Respiratory Rate 12 14 Blood Pressure 125/59 L Pulse Oximetry 90 L 91 L 91 L 06/24/18 18:00 06/24/18 19:00 06/24/18 20:00 Temperature 98.2 F Pulse Rate 83 88 95 H Respiratory Rate 14 14 15 Blood Pressure 141/65 H Pulse Oximetry 94 L 96 93 L 06/24/18 21:00 06/24/18 22:00 06/24/18 22:10 Temperature Pulse Rate 93 H 97 H 95 H Respiratory Rate 20 27 H 24 Blood Pressure 137/63 Pulse Oximetry 99 99 97 06/24/18 23:00 06/24/18 23:27 06/24/18 23:46 Temperature Pulse Rate 94 H 96 H 97 H Respiratory Rate 34 H 27 H 16 Blood Pressure 146/67 H 144/63 H Pulse Oximetry 84 L 94 L 90 L 06/25/18 00:00 06/25/18 00:15 06/25/18 00:23 Temperature 98.3 F Pulse Rate 92 H 91 H Respiratory Rate 19 21 Blood Pressure 130/56 L 145/67 H Pulse Oximetry 93 L 98 99 06/25/18 00:30 06/25/18 00:45 06/25/18 01:00 Temperature Pulse Rate 91 H 89 90 Respiratory Rate 28 H 14 19 Blood Pressure 140/67 144/65 H 141/63 H Pulse Oximetry 94 L 97 97 06/25/18 01:15 06/25/18 01:30 06/25/18 01:45 Temperature Pulse Rate 87 87 87 Respiratory Rate 18 16 22 Blood Pressure 139/61 134/58 L 137/65 Pulse Oximetry 06/25/18 02:00 06/25/18 02:15 06/25/18 02:30 Temperature Pulse Rate 87 87 87 Respiratory Rate 25 H 18 21 Blood Pressure 109/55 L 119/58 L 110/58 L Pulse Oximetry 06/25/18 02:45 06/25/18 03:00 06/25/18 03:15 Temperature Pulse Rate 86 86 85 Respiratory Rate 17 24 11 L Blood Pressure 121/59 L 108/57 L 112/54 L Pulse Oximetry 06/25/18 03:30 06/25/18 03:45 06/25/18 04:00 Temperature 98.7 F Pulse Rate 84 86 84 Respiratory Rate 13 21 17 Blood Pressure 131/60 121/55 L 120/58 L Pulse Oximetry 06/25/18 04:15 06/25/18 04:30 06/25/18 04:45 Temperature Pulse Rate 83 81 82 Respiratory Rate 20 9 L 26 H Blood Pressure 120/58 L 106/55 L 112/61 Pulse Oximetry 100 06/25/18 05:00 06/25/18 05:15 06/25/18 06:00 Temperature Pulse Rate 82 80 82 Respiratory Rate 20 23 19 Blood Pressure 128/66 135/64 Pulse Oximetry 98 96 91 L 06/25/18 06:38 Temperature Pulse Rate 81 Respiratory Rate 15 Blood Pressure 136/63 Pulse Oximetry Intake & Output 06/24/18 06/25/18 06/25/18 18:59 06:59 18:59 Intake Total 300 / 300 200 / 200 Output Total 150 / 150 1000 / 1000 Balance 150 / 150 -800 / -800 Weight 102 kg Intake: IV 100 / 100 Azactam Inj 2 GM In NS Inj 100 100 / 100 ML @ 200 mls/hr IV.SIG Q24H ADELINE Rx#:[id number] Oral 0 / 0 100 / 100 Anesthesia Amount 300 / 300 Output: Urine 0 / 0 0 / 0 Hemodialysis Amount 1000 / 1000 Estimated Blood Loss 150 / 150 Other: Date of Last Bowel Movement 06/18/18 06/18/18 # Bowel Movements 0 Result Diagrams: 06/25/18 06:12 06/25/18 06:12 Objective Remarks: Gen: Alert, awake Head: Normal Lungs: Lungs, breathing comfortable. Laura clear Heart: Transmitted systolic murmur. No JVD. Abdomen: Soft, no guarding, nontender, bowel sounds active Extremities: Well perfused, lowers s/p BKA Neuro: Alert, cooperative, conversant, moves 4 limbs. Assessment and Plan - Assessment and Plan Plan: Assessment and Plan (1) Cellulitis: Code(s): L03.90 - Cellulitis, unspecified Status: Acute (2) Gangrene: Code(s): I96 - Gangrene, not elsewhere classified Status: Acute (3) S/P BKA (below knee amputation) unilateral: Code(s): Z89.519 - Acquired absence of unspecified leg below knee Status: Acute (4) Systolic and diastolic CHF, chronic: Code(s): I50.42 - Chronic combined systolic (congestive) and diastolic (congestive) heart failure Status: Chronic (5) CAD (coronary artery disease): Code(s): I25.10 - Atherosclerotic heart disease of [place] coronary artery without angina pectoris Status: Chronic (6) DM2 (diabetes mellitus, type 2): Code(s): E11.9 - Type 2 diabetes mellitus without complications Status: Chronic (7) ESRD (end stage renal disease) on dialysis: Code(s): N18.6 - End stage renal disease; Z99.2 - Dependence on renal dialysis Status: Chronic (8) Anemia: Code(s): D64.9 - Anemia, unspecified Status: Chronic Plan Toe cellulitis/gangrene History of severe atherosclerotic disease Imaging shows distal left femoral and popliteal arteries to be occluded Collateral circulation has compensated poorly over time as evidenced by a gangrenous toe, there is no adequate distal circulation to perform bypass Continuing vancomycin and aztreonam Blood cultures remain negative Appreciate vascular surgery consult Appreciate podiatry consult S/P left BKA 06/24. Maintain dressing dry and clean End-stage renal disease on dialysis Chronic. Nephrology consult appreciated. Continue dialysis per nephrology. Continue holding Aldactone and ACEi. K 7.3 - dialysis 06/24 K 5.4 today, plan dialysis in morning Liver disease Patient reports he has had approximately 30 paracenteses. No shortness of breath. Complaining of abdominal distention 06/21. volume control with dialysis. Diabetes mellitus Well controlled at this time. Continue sliding-scale insulin coverage DVT Prophylaxis Heparin Overall impression: Severe hyperkalemia resolved. Mildly elevated potassium this morning, remove potassium from diet. _ (1) Cellulitis Qualifiers: Laterality: Site of cellulitis: Site of cellulitis of extremity: Site of cellulitis of trunk: (2) CAD (coronary artery disease) Qualifiers: Coronary Disease-Associated Artery/Lesion type: [place] artery [place] vs. transplanted heart: [place] heart Associated angina: without angina Qualified Code(s): I25.10 - Atherosclerotic heart disease of [place] coronary artery without angina pectoris (3) DM2 (diabetes mellitus, type 2) Qualifiers: Diabetes mellitus skilled nursing insulin use: Diabetes mellitus complication status: Diabetes mellitus complication detail: Diabetic retinopathy severity : Proliferative retinopathy type: Diabetes mellitus macular edema: Laterality: Chronic kidney disease stage: (4) Anemia Qualifiers: Anemia type: due to chronic kidney disease Iron deficiency anemia type: Vitamin B12 deficiency anemia type: Folate deficiency anemia type: Bone marrow failure anemia type: Hemolytic anemia type: Other causes of anemia: Chronic kidney disease stage: on chronic dialysis Qualified Code(s): N18.6 - End stage renal disease; D63.1 - Anemia in chronic kidney disease; Z99.2 - Dependence on renal dialysis
--- NOTE | 2018-06-25 17:56 | P.PNVS ---
Subjective Subjective/Hospital Course: Referral received Full consult to bradley San 06/20/2018 Patient evaluated and full consult dictated We will go ahead with CTA with runoff of the left leg and see if there is anything salvageable there either by endovascular or open means This patient has a very significant risk of losing his leg on the BKA level Details in the consult 06/21/2018 Patient with right above-knee amputation and remaining severe vascular occlusive disease in the left leg CTA reveals throughout calcification is very hard to tell if patient has occlusion of the vessels or any flow I suspect severe SFA and trifurcation disease with likely occlusion at least 1 or 2 vessels to the foot and probably severe vascular disease at the level of the ankle Will order angiogram with runoff in radiology and then decide if there is something we can address endovascularly If there is nothing to addressed endovascularly this patient will proceed to loses left leg 06/22/2018 Patient scheduled tomorrow to undergo formal angiogram and possible arterectomy SFA and popliteal artery are occluded and patient does not have any target vessel for bypass either femoral popliteal or femoral to distal bypass considering that trifurcation vessels and into nothing in bunch of little branches custodial the calf Foot remains cyanotic and cold and calf is cool as it was on my initial exam 20 June. I discussed this with patient now at length in the presence of his brother. Depending on the results of formal angiogram this patient will either have below -knee or above-knee amputation. Foot itself is not salvageable at this time no matter what. Patient and family understand this and agree with the plan 06/23/2018 Patient with severe ischemia of the left leg. Formal arteriogram results are in the record. Patient has peroneal artery with some reconstitution of the posterior tibial artery as the only supply below the level of the knee. At this point there is no reconstruction possible and this is the nonsalvageable situation I discussed this with Dr. Cardoso the interventional radiologist and we both agree on the further approach. I believe remaining vasculature may be sufficient to support below-knee amputation and therefore will proceed with the same tomorrow. Unfortunately there is a high likelihood that patient will eventually end up with above-knee amputation just like on the contralateral side. Discussed with patient in length and we will proceed with left below-knee amputation tomorrow 06/25/2018 Status post left BKA Dressing is intact clean and dry Will leave original dressing on until Thursday May transfer to floor anytime from vascular point Nothing to add to care at this time Objective Vital Signs / I&O: Vital Signs 06/24/18 18:00 06/24/18 19:00 06/24/18 20:00 Temperature 98.2 F Pulse Rate 83 88 95 H Respiratory Rate 14 14 15 Blood Pressure 141/65 H Pulse Oximetry 94 L 96 93 L 06/24/18 21:00 06/24/18 22:00 06/24/18 22:10 Temperature Pulse Rate 93 H 97 H 95 H Respiratory Rate 20 27 H 24 Blood Pressure 137/63 Pulse Oximetry 99 99 97 06/24/18 23:00 06/24/18 23:27 06/24/18 23:46 Temperature Pulse Rate 94 H 96 H 97 H Respiratory Rate 34 H 27 H 16 Blood Pressure 146/67 H 144/63 H Pulse Oximetry 84 L 94 L 90 L 06/25/18 00:00 06/25/18 00:15 06/25/18 00:23 Temperature 98.3 F Pulse Rate 92 H 91 H Respiratory Rate 19 21 Blood Pressure 130/56 L 145/67 H Pulse Oximetry 93 L 98 99 06/25/18 00:30 06/25/18 00:45 06/25/18 01:00 Temperature Pulse Rate 91 H 89 90 Respiratory Rate 28 H 14 19 Blood Pressure 140/67 144/65 H 141/63 H Pulse Oximetry 94 L 97 97 06/25/18 01:15 06/25/18 01:30 06/25/18 01:45 Temperature Pulse Rate 87 87 87 Respiratory Rate 18 16 22 Blood Pressure 139/61 134/58 L 137/65 Pulse Oximetry 06/25/18 02:00 06/25/18 02:15 06/25/18 02:30 Temperature Pulse Rate 87 87 87 Respiratory Rate 25 H 18 21 Blood Pressure 109/55 L 119/58 L 110/58 L Pulse Oximetry 06/25/18 02:45 06/25/18 03:00 06/25/18 03:15 Temperature Pulse Rate 86 86 85 Respiratory Rate 17 24 11 L Blood Pressure 121/59 L 108/57 L 112/54 L Pulse Oximetry 06/25/18 03:30 06/25/18 03:45 06/25/18 04:00 Temperature 98.7 F Pulse Rate 84 86 84 Respiratory Rate 13 21 17 Blood Pressure 131/60 121/55 L 120/58 L Pulse Oximetry 06/25/18 04:15 06/25/18 04:30 06/25/18 04:45 Temperature Pulse Rate 83 81 82 Respiratory Rate 20 9 L 26 H Blood Pressure 120/58 L 106/55 L 112/61 Pulse Oximetry 100 06/25/18 05:00 06/25/18 05:15 06/25/18 06:00 Temperature Pulse Rate 82 80 82 Respiratory Rate 20 23 19 Blood Pressure 128/66 135/64 Pulse Oximetry 98 96 91 L 06/25/18 06:38 06/25/18 16:18 Temperature Pulse Rate 81 Respiratory Rate 15 Blood Pressure 136/63 Pulse Oximetry 98 Intake & Output 06/24/18 06/25/18 06/25/18 18:59 06:59 18:59 Intake Total 300 / 300 200 / 200 Output Total 150 / 150 1000 / 1000 Balance 150 / 150 -800 / -800 Weight 102 kg Intake: IV 100 / 100 Azactam Inj 2 GM In NS Inj 100 100 / 100 ML @ 200 mls/hr IV.SIG Q24H [facility] Rx#:[id number] Oral 0 / 0 100 / 100 Anesthesia Amount 300 / 300 Output: Urine 0 / 0 0 / 0 Hemodialysis Amount 1000 / 1000 Estimated Blood Loss 150 / 150 Other: Date of Last Bowel Movement 06/18/18 06/18/18 # Bowel Movements 0 Laboratory Results - last 24 hr 06/25/18 06/25/18 06/25/18 06:12 06:12 12:16 WBC 9.1 RBC 2.82 L Hgb 8.9 L Hct 26.8 L MCV 95.3 MCH 31.6 MCHC 33.1 RDW 16.1 Plt Count 212 MPV 8.0 Neut % (Auto) 90.9 H Lymph % (Auto) 5.5 L [place] % (Auto) 3.2 Eos % (Auto) 0.1 Baso % (Auto) 0.3 Neut # (Auto) 8.3 H Lymph # (Auto) 0.5 L [place] # (Auto) 0.3 Eos # (Auto) 0.0 Baso # (Auto) 0.0 WBC Differential . Differential Comment Auto diff final Sodium 137 Potassium 5.4 H D Chloride 99 Carbon Dioxide 26.5 Anion Gap 12 BUN 66 H Creatinine 9.43 H Estimated GFR 6 L POC Glucose 125 H Random Glucose 93 Calcium 8.0 L Phosphorus 8.7 H Albumin 1.9 L 06/25/18 06/25/18 17:01 17:07 WBC RBC Hgb Hct MCV MCH MCHC RDW Plt Count MPV Neut % (Auto) Lymph % (Auto) [place] % (Auto) Eos % (Auto) Baso % (Auto) Neut # (Auto) Lymph # (Auto) [place] # (Auto) Eos # (Auto) Baso # (Auto) WBC Differential Differential Comment Sodium Potassium Chloride Carbon Dioxide Anion Gap BUN Creatinine Estimated GFR POC Glucose 152 H 154 H Random Glucose Calcium Phosphorus Albumin Impressions Chest X-Ray 06/24/18 00:00 CONCLUSION: 1. Diffuse prominent cardiomegaly. 2. Pulmonary venous congestion versus pulmonary edema. 3. Parenchymal consolidation/infiltrate in the right lung base without significant change compared to the prior exam.
--- NOTE | 2018-06-25 18:01 | ECG ---
Date Performed: 06/24/2018 Time Performed: 16:09:56 PTAGE: 53 years EKG: SINUS BRADYCARDIA WITH SECOND DEGREE, TYPE 1 AV BLOCK BORDERLINE RIGHT AXIS DEVIATION MODER ATE INTRAVENTRICULAR CONDUCTION DELAY NONSPECIFIC T-WAVE ABNORMALITY ABNORMAL ECG PREVIOUS TRACING : 06/18/2018 17.06 DOCTOR: Lincoln Rashid Interpretating Date/Time 06/25/2018 18:00:43
[2018-06-25] MEDS: Aztreonam Inj 2 GM in Sodium Chloride 0.9% Inj 100 ML IV.SIG SCH (21:54)
[2018-06-26] MEDS: Morphine Inj 4 MG/ML Vial IV.PUSH PRN ×3 (05:32→22:12)
[2018-06-26] MEDS: Heparin - SQ 10,000 UNITS/ML Vial SQ SCH ×3 (05:32→22:09)
[2018-06-26 06:30] LABS: Carbon Dioxide 28.2 meq/L (21.0-32.0); Phosphorus 10.8 mg/dL (2.5-4.9); Potassium 5.5 meq/L (3.5-5.1)
--- NOTE | 2018-06-26 10:02 | P.PNNP ---
Subjective Interval history: Seen on dialysis, tolerating HD well. No acute complaints Physical Exam Vital signs: Vital Signs 06/25/18 10:00 06/25/18 10:08 06/25/18 11:00 Temperature Pulse Rate 76 77 74 Respiratory Rate 18 21 11 L Blood Pressure 135/65 Pulse Oximetry 93 L 91 L 91 L 06/25/18 11:08 06/25/18 12:00 06/25/18 12:08 Temperature 97.6 F Pulse Rate 74 74 73 Respiratory Rate 15 13 16 Blood Pressure 126/60 142/65 H Pulse Oximetry 97 99 100 06/25/18 13:00 06/25/18 13:08 06/25/18 14:00 Temperature Pulse Rate 71 74 72 Respiratory Rate 8 L 18 13 Blood Pressure 136/65 Pulse Oximetry 99 100 06/25/18 14:08 06/25/18 15:00 06/25/18 15:24 Temperature Pulse Rate 72 71 72 Respiratory Rate 17 19 24 Blood Pressure 107/55 L 134/60 Pulse Oximetry 06/25/18 16:00 06/25/18 16:08 06/25/18 16:18 Temperature 98 F Pulse Rate 72 73 Respiratory Rate 14 16 Blood Pressure 126/63 Pulse Oximetry 98 06/25/18 17:00 06/25/18 17:08 06/25/18 18:00 Temperature Pulse Rate 70 70 72 Respiratory Rate 29 H 20 29 H Blood Pressure 137/64 Pulse Oximetry 92 L 06/25/18 18:08 06/25/18 19:00 06/25/18 19:08 Temperature Pulse Rate 70 72 72 Respiratory Rate 20 8 L Blood Pressure 126/59 L 120/59 L Pulse Oximetry 06/25/18 20:00 06/25/18 20:08 06/25/18 21:00 Temperature Pulse Rate 71 70 68 Respiratory Rate 13 Blood Pressure 119/60 Pulse Oximetry 99 99 06/25/18 21:08 06/25/18 21:16 06/25/18 22:00 Temperature Pulse Rate 69 69 Respiratory Rate Blood Pressure 119/66 Pulse Oximetry 99 99 06/25/18 22:08 06/25/18 23:00 06/25/18 23:11 Temperature Pulse Rate 68 70 71 Respiratory Rate Blood Pressure 139/65 129/60 Pulse Oximetry 98 98 06/26/18 00:00 06/26/18 00:08 01/05/19 01:00 Temperature 98.0 F Pulse Rate 71 71 71 Respiratory Rate 33 H 16 Blood Pressure 128/62 Pulse Oximetry 06/26/18 01:08 06/26/18 02:00 06/26/18 02:08 Temperature Pulse Rate 71 71 73 Respiratory Rate 18 19 20 Blood Pressure 130/62 128/59 L Pulse Oximetry 92 L 06/26/18 03:00 06/26/18 03:08 06/26/18 04:00 Temperature 98.4 F Pulse Rate 74 74 75 Respiratory Rate 20 17 17 Blood Pressure 137/69 Pulse Oximetry 06/26/18 04:08 06/26/18 05:00 06/26/18 05:08 Temperature Pulse Rate 75 74 74 Respiratory Rate 17 21 22 Blood Pressure 145/65 H 137/65 Pulse Oximetry 06/26/18 06:00 06/26/18 06:08 06/26/18 09:28 Temperature Pulse Rate 75 74 Respiratory Rate 18 18 Blood Pressure 117/58 L Pulse Oximetry 96 Intake & Output 06/25/18 06/26/18 06/26/18 18:59 06:59 18:59 Intake Total 800 / 800 840 / 840 Output Total 0 / 0 0 / 0 Balance 800 / 800 840 / 840 Weight 105.2 kg Intake: IV 100 / 100 Azactam Inj 2 GM In NS Inj 100 100 / 100 ML @ 200 mls/hr IV.SIG Q24H [facility] Rx#:[id number] Oral 800 / 800 740 / 740 Output: Urine 0 / 0 0 / 0 Other: Date of Last Bowel Movement 06/18/18 06/18/18 # Bowel Movements 0 - Constitutional no acute distress - Routine HEENT Exam Head: Present: normocephalic Eye: Present: EOMI ENT: Present: mucous membranes moist - Routine Neck Exam Present: supple - Routine Respiratory Exam Present: decreased breath sounds - Routine Cardiovascular Exam Present: RRR - Routine Abdominal Exam Present: soft - Routine Skin Exam Present: intact - Routine Neurological Exam Present: alert - Detailed Neurological Exam: Coma Scale Eye Opening: Spontaneous - Routine Psychiatric Exam Present: normal affect Assessment and Plan - Assessment (1) Cellulitis Code(s): L03.90 - Cellulitis, unspecified Status: Acute (2) Gangrene Code(s): I96 - Gangrene, not elsewhere classified Status: Acute (3) S/P BKA (below knee amputation) unilateral Code(s): Z89.519 - Acquired absence of unspecified leg below knee Status: Acute (4) Systolic and diastolic CHF, chronic Code(s): I50.42 - Chronic combined systolic (congestive) and diastolic ( congestive) heart failure Status: Chronic (5) CAD (coronary artery disease) Code(s): I25.10 - Atherosclerotic heart disease of [place] coronary artery without angina pectoris Status: Chronic Qualifiers: Coronary Disease-Associated Artery/Lesion type: [place] artery [place] vs. transplanted heart: [place] heart Associated angina: without angina Qualified Code(s): I25.10 - Atherosclerotic heart disease of [place] coronary artery without angina pectoris (6) DM2 (diabetes mellitus, type 2) Code(s): E11.9 - Type 2 diabetes mellitus without complications Status: Chronic Qualifiers: (7) ESRD (end stage renal disease) on dialysis Code(s): N18.6 - End stage renal disease; Z99.2 - Dependence on renal dialysis Status: Chronic (8) Anemia Code(s): D64.9 - Anemia, unspecified Status: Chronic Qualifiers: Anemia type: due to chronic kidney disease Chronic kidney disease stage: on chronic dialysis Qualified Code(s): N18.6 - End stage renal disease; D63.1 - Anemia in chronic kidney disease; Z99.2 - Dependence on renal dialysis - Plan Patient with end stage renal disease, on HD 3 times a week. Thursday//Thursday Admitted with foot finger cellulitis and gangrene. S/P left BKA 1/3 Initial post-op hyperkalemia Potassium reduced in diet. Phosphorus elevated, phoslo added Epogen and vancomycin with dialysis Vital signs stable Seen on HD today, plan next HD Thursday Continue TTS HD.
[2018-06-26] MEDS: Albumin Human 25% Inj 100 ML IV.SIG PRN ×2 (10:03→10:05)
[2018-06-26] MEDS: Insulin NovoLOG Aspart Correctional Sugar Inj SQ SCH ×4 (10:38→20:51)
[2018-06-26] MEDS: Carvedilol 12.5 MG Tablet PO SCH ×2 (10:39→20:46)
[2018-06-26] MEDS: amLODIPine 5 MG Tablet PO SCH (10:39)
[2018-06-26] MEDS: Gabapentin 300 MG Capsule PO SCH ×2 (10:39→20:45)
--- NOTE | 2018-06-26 10:39 | P.PNIM ---
Subjective Interval history: Thus far patient is doing well postop. Dialysis planned for today. No complaints from the patient. Physical Exam Vital signs: Last Vital Signs Temp 98.4 F 06/26/18 04:00 Pulse 74 06/26/18 06:08 Resp 18 06/26/18 06:08 BP 117/58 L 06/26/18 06:08 Pulse Ox 96 06/26/18 09:28 Intake & Output 06/24/18 06/25/18 06/26/18 06/27/18 06:59 06:59 06:59 06:59 Intake Total 340 / 340 500 / 500 1640 / 1640 100 / 100 Output Total 1150 / 1150 0 / 0 Balance 340 / 340 -650 / -650 1640 / 1640 100 / 100 Weight 96.8 kg 102 kg 105.2 kg Narrative: GENERAL: NAD, A&Ox3 HEAD: Normocephalic. NECK: Supple, trachea midline. No lymphadenopathy. EYES: No scleral icterus. No injection or drainage. CARDIOVASCULAR: Regular rate and rhythm without murmurs, gallops, or rubs. RESPIRATORY: Breath sounds equal bilaterally. No accessory muscle use. GASTROINTESTINAL: Abdomen soft, non-tender, nondistended. MUSCULOSKELETAL: No cyanosis, or edema. Acute amputation and wound at left lower extremity below the knee, previously amputated right lower extremity above the knee. SKIN: Warm and dry. NEURO: No focal neurological deficits. Results Labs CBC & Chem 7: 06/25/18 06:12 06/26/18 04:38 Assessment and Plan Plan 53-year-old male admitted secondary to left lower extremity infection, now status post left BKA Toe cellulitis/gangrene History of severe atherosclerotic disease Chronic AKA at right Status post BKA at left Continue vancomycin and aztreonam Follow blood cultures Vascular surgery following Podiatry following Status post BKA of left on 06/24/2018 Continue postop care End-stage renal disease Continue dialysis Nephrology following Holding Aldactone and HERB inhibitor Follow renal function Chronic liver disease Recurrent ascites Follow clinically Diabetes mellitus type 2 Follow blood sugars Insulin sliding scale Diabetic diet DVT Prophylaxis Heparin Progress Note: Quality VTE Deep Vein Thrombosis/Pulmonary Embolism Present on Admission: No
[2018-06-26] MEDS: Ezetimibe 10 MG Tablet PO SCH (10:40)
[2018-06-26] MEDS: Senna/Docusate Sodium 8.6/50 MG Tablet PO SCH ×2 (10:40→20:45)
[2018-06-26] MEDS: Calcium Acetate 667 MG Capsule PO SCH ×3 (10:40→17:46)
--- NOTE | 2018-06-26 12:26 | P.PNVS ---
Subjective Subjective/Hospital Course: Referral received Full consult to bradley San 06/20/2018 Patient evaluated and full consult dictated We will go ahead with CTA with runoff of the left leg and see if there is anything salvageable there either by endovascular or open means This patient has a very significant risk of losing his leg on the BKA level Details in the consult 06/21/2018 Patient with right above-knee amputation and remaining severe vascular occlusive disease in the left leg CTA reveals throughout calcification is very hard to tell if patient has occlusion of the vessels or any flow I suspect severe SFA and trifurcation disease with likely occlusion at least 1 or 2 vessels to the foot and probably severe vascular disease at the level of the ankle Will order angiogram with runoff in radiology and then decide if there is something we can address endovascularly If there is nothing to addressed endovascularly this patient will proceed to loses left leg 06/22/2018 Patient scheduled tomorrow to undergo formal angiogram and possible arterectomy SFA and popliteal artery are occluded and patient does not have any target vessel for bypass either femoral popliteal or femoral to distal bypass considering that trifurcation vessels and into nothing in bunch of little branches residential the calf Foot remains cyanotic and cold and calf is cool as it was on my initial exam 20 June. I discussed this with patient now at length in the presence of his brother. Depending on the results of formal angiogram this patient will either have below -knee or above-knee amputation. Foot itself is not salvageable at this time no matter what. Patient and family understand this and agree with the plan 06/23/2018 Patient with severe ischemia of the left leg. Formal arteriogram results are in the record. Patient has peroneal artery with some reconstitution of the posterior tibial artery as the only supply below the level of the knee. At this point there is no reconstruction possible and this is the nonsalvageable situation I discussed this with Dr. Cardoso the interventional radiologist and we both agree on the further approach. I believe remaining vasculature may be sufficient to support below-knee amputation and therefore will proceed with the same tomorrow. Unfortunately there is a high likelihood that patient will eventually end up with above-knee amputation just like on the contralateral side. Discussed with patient in length and we will proceed with left below-knee amputation tomorrow 06/25/2018 Status post left BKA Dressing is intact clean and dry Will leave original dressing on until Thursday May transfer to floor anytime from vascular point Nothing to add to care at this time 06/26/2018 Status post left BKA dressing is clean and dry DC original dressing and redressed with light gauze Stitches will remain in place for about 3 weeks total Objective Vital Signs / I&O: Vital Signs 06/25/18 13:00 06/25/18 13:08 06/25/18 14:00 Temperature Pulse Rate 71 74 72 Respiratory Rate 8 L 18 13 Blood Pressure 136/65 Pulse Oximetry 99 100 06/25/18 14:08 06/25/18 15:00 06/25/18 15:24 Temperature Pulse Rate 72 71 72 Respiratory Rate 17 19 24 Blood Pressure 107/55 L 134/60 Pulse Oximetry 06/25/18 16:00 06/25/18 16:08 06/25/18 16:18 Temperature 98 F Pulse Rate 72 73 Respiratory Rate 14 16 Blood Pressure 126/63 Pulse Oximetry 98 06/25/18 17:00 06/25/18 17:08 06/25/18 18:00 Temperature Pulse Rate 70 70 72 Respiratory Rate 29 H 20 29 H Blood Pressure 137/64 Pulse Oximetry 92 L 06/25/18 18:08 06/25/18 19:00 06/25/18 19:08 Temperature Pulse Rate 70 72 72 Respiratory Rate 20 8 L Blood Pressure 126/59 L 120/59 L Pulse Oximetry 06/25/18 20:00 06/25/18 20:08 06/25/18 21:00 Temperature Pulse Rate 71 70 68 Respiratory Rate 13 Blood Pressure 119/60 Pulse Oximetry 99 99 06/25/18 21:08 06/25/18 21:16 06/25/18 22:00 Temperature Pulse Rate 69 69 Respiratory Rate Blood Pressure 119/66 Pulse Oximetry 99 99 06/25/18 22:08 06/25/18 23:00 06/25/18 23:11 Temperature Pulse Rate 68 70 71 Respiratory Rate Blood Pressure 139/65 129/60 Pulse Oximetry 98 98 06/26/18 00:00 06/26/18 00:08 06/26/18 01:00 Temperature 98.0 F Pulse Rate 71 71 71 Respiratory Rate 33 H 16 Blood Pressure 128/62 Pulse Oximetry 06/26/18 01:08 06/26/18 02:00 06/26/18 02:08 Temperature Pulse Rate 71 71 73 Respiratory Rate 18 19 20 Blood Pressure 130/62 128/59 L Pulse Oximetry 92 L 06/26/18 03:00 06/26/18 03:08 06/26/18 04:00 Temperature 98.4 F Pulse Rate 74 74 75 Respiratory Rate 20 17 17 Blood Pressure 137/69 Pulse Oximetry 06/26/18 04:08 06/26/18 05:00 06/26/18 05:08 Temperature Pulse Rate 75 74 74 Respiratory Rate 17 21 22 Blood Pressure 145/65 H 137/65 Pulse Oximetry 06/26/18 06:00 06/26/18 06:08 06/26/18 07:00 Temperature Pulse Rate 75 74 73 Respiratory Rate 18 18 23 Blood Pressure 117/58 L Pulse Oximetry 06/26/18 07:08 06/26/18 08:00 06/26/18 08:08 Temperature Pulse Rate 72 72 70 Respiratory Rate 18 16 16 Blood Pressure 102/54 L 107/53 L Pulse Oximetry 96 06/26/18 09:00 06/26/18 09:28 Temperature Pulse Rate 67 Respiratory Rate 16 Blood Pressure Pulse Oximetry 96 Intake & Output 06/25/18 06/26/18 06/26/18 18:59 06:59 18:59 Intake Total 800 / 800 840 / 840 100 / 100 Output Total 0 / 0 0 / 0 Balance 800 / 800 840 / 840 100 / 100 Weight 105.2 kg Intake: IV 100 / 100 100 / 100 Flexbumin 25% Inj 100 ML @ 60 100 / 100 mls/hr IV.SIG WITH [facility] PRN Rx#:[id number] Azactam Inj 2 GM In NS Inj 100 100 / 100 ML @ 200 mls/hr IV.SIG Q24H [facility] Rx#:[id number] Oral 800 / 800 740 / 740 Output: Urine 0 / 0 0 / 0 Other: Date of Last Bowel Movement 06/18/18 06/18/18 06/18/18 # Bowel Movements 0 Laboratory Results - last 24 hr 06/23/18 06/25/18 06/25/18 23:19 17:01 17:07 Sodium Potassium Chloride Carbon Dioxide Anion Gap BUN Creatinine Estimated GFR POC Glucose 152 H 154 H Random Glucose Calcium Phosphorus Albumin MTS Gel Crossmatch See Detail 06/26/18 06/26/18 04:38 11:09 Sodium 136 Potassium 5.5 H Chloride 96 L Carbon Dioxide 28.2 Anion Gap 12 BUN 74 H Creatinine 11.35 H* D Estimated GFR 5 L POC Glucose 132 H Random Glucose 128 H Calcium 8.0 L Phosphorus 10.8 H D Albumin 2.0 L MTS Gel Crossmatch Impressions Chest X-Ray 06/24/18 00:00 CONCLUSION: 1. Diffuse prominent cardiomegaly. 2. Pulmonary venous congestion versus pulmonary edema. 3. Parenchymal consolidation/infiltrate in the right lung base without significant change compared to the prior exam.
--- NOTE | 2018-06-26 17:43 | US ---
EXAM DATE: 06/26/2018 5:33 PM EST AGE/SEX: 53 years / Male INDICATIONS: Ascites. CLINICAL DATA: This is the patient's initial encounter. Patient reports that signs and symptoms have been present for 3 months and indicates a pain score of 4/10. MEDICAL/SURGICAL HISTORY: Congestive heart failure. Hypertension. Diabetes. Coronary artery di sease. Dialysis. ESRD. Myocardial infarction. . Hernia repair. BKA. COMPARISON: No prior exams available for comparison. FINDINGS: There is slight ascites throughout the abdomen and pelvis. CONCLUSION: 1. Slight ascites. Electronically signed by: Jacki London MD Board Certified Radiologist 06/26/2018 5:41 PM EST
[2018-06-26] MEDS: Aztreonam Inj 2 GM in Sodium Chloride 0.9% Inj 100 ML IV.SIG SCH (22:08)
[2018-06-27] MEDS: Heparin - SQ 10,000 UNITS/ML Vial SQ SCH ×5 (05:18→22:03)
[2018-06-27 06:43] LABS: Baso # (Auto) 0.1 th/mm3 (0.0-0.2); Baso % (Auto) 0.7 % (0.0-2.0); Eos # (Auto) 0.3 th/mm3 (0.0-0.4); Eos % (Auto) 3.7 % (0.0-4.0); Hematocrit 28.6 % (39.0-51.0); Hemoglobin 9.2 gm/dL (13.0-17.0); Lymph # (Auto) 0.6 th/mm3 (1.0-4.8); Lymph % (Auto) 7.7 % (9.0-44.0); Mean Corpuscular HGB Conc 32.4 % (32.0-36.0); Mean Corpuscular Hemoglobin 31.2 pg (27.0-34.0); Mean Corpuscular Volume 96.3 fL (80.0-100.0); Mean Platelet Volume 7.9 fL (7.0-11.0); Mono # (Auto) 0.5 th/mm3 (0.0-0.9); Mono % (Auto) 6.5 % (0.0-8.0); Neut # (Auto) 6.6 th/mm3 (1.8-7.7); Neut % (Auto) 81.4 % (16.0-70.0); Platelet Count 203 th/mm3 (150-450); Red Blood Count 2.97 mil/mm3 (4.50-5.90); Red Cell Distribution Width 15.8 % (11.6-17.2); White Blood Count 8.1 th/mm3 (4.0-11.0)
[2018-06-27 07:04] LABS: Albumin 2.3 g/dL (3.4-5.0); Alkaline Phosphatase 107 U/L (45-117); Anion Gap 10 meq/L (5-15); Aspartate Aminotransferase 39 U/L (15-37); Blood Urea Nitrogen 55 mg/dL (7-18); Calcium 8.4 mg/dL (8.5-10.1); Chloride 98 meq/L (98-107); Glomerular Filtration Rate 6 mL/min (>89); Glucose,Random 101 mg/dL (74-106); Potassium 4.8 meq/L (3.5-5.1); Sodium 138 meq/L (136-145); Total Protein 6.3 g/dL (6.4-8.2)
[2018-06-27] MEDS: Insulin NovoLOG Aspart Correctional Sugar Inj SQ SCH ×4 (09:11→22:06)
[2018-06-27] MEDS: Gabapentin 300 MG Capsule PO SCH ×2 (09:12→22:01)
[2018-06-27] MEDS: amLODIPine 5 MG Tablet PO SCH (09:12)
[2018-06-27] MEDS: Carvedilol 12.5 MG Tablet PO SCH ×2 (09:12→22:01)
[2018-06-27] MEDS: Calcium Acetate 667 MG Capsule PO SCH ×3 (09:12→17:42)
[2018-06-27] MEDS: Ezetimibe 10 MG Tablet PO SCH (09:12)
--- NOTE | 2018-06-27 13:34 | P.PNIM ---
Subjective Interval history: Patient complains of abdominal distention and tightness. He has recurrent problems with ascites. Ultrasound obtained yesterday shows only slight ascites. His last paracentesis was 1 week ago, 5600 cc were removed at that time. Patient's only other complaint today is lethargy, this is likely related to residual anesthetic effect. Physical Exam Vital signs: Last Vital Signs Temp 97.5 F L 06/27/18 08:00 Pulse 76 06/27/18 08:00 Resp 17 06/27/18 08:00 BP 133/67 06/27/18 08:00 Pulse Ox 94 L 06/27/18 09:06 Intake & Output 06/25/18 06/26/18 06/27/18 06/28/18 06:59 06:59 06:59 06:59 Intake Total 500 / 500 1640 / 1640 320 / 320 Output Total 1150 / 1150 0 / 0 1500 / 1500 Balance -650 / -650 1640 / 1640 -1180 / -1180 Weight 102 kg 105.2 kg 96 kg Narrative: GENERAL: NAD, A&Ox3 HEAD: Normocephalic. NECK: Supple, trachea midline. No lymphadenopathy. EYES: No scleral icterus. No injection or drainage. CARDIOVASCULAR: Regular rate and rhythm without murmurs, gallops, or rubs. RESPIRATORY: Breath sounds equal bilaterally. No accessory muscle use. GASTROINTESTINAL: Abdomen soft, non-tender, abdomen is distended. MUSCULOSKELETAL: No cyanosis, or edema. Acute amputation and wound at left lower extremity below the knee, previously amputated right lower extremity above the knee. SKIN: Warm and dry. NEURO: No focal neurological deficits. Results Labs CBC & Chem 7: 06/27/18 05:00 06/27/18 05:00 Imaging Imaging: Impressions Abdomen Ultrasound 06/26/18 00:00 CONCLUSION: 1. Slight ascites. Assessment and Plan Plan 53-year-old male admitted secondary to left lower extremity infection, now status post left BKA Patient's left leg wound is healing well. Continue postop care. Ultrasound of abdomen shows only slight ascites. No need for paracentesis at this time. Follow patient clinically. Check ammonia level. Monitor for regular bowel movements. Start incentive spirometry. Toe cellulitis/gangrene History of severe atherosclerotic disease Chronic AKA at right Status post BKA at left Continue vancomycin and aztreonam Follow blood cultures Vascular surgery following Podiatry following Status post BKA of left on 06/24/2018 Continue postop care End-stage renal disease Continue dialysis Nephrology following Holding Aldactone and HERB inhibitor Follow renal function Chronic liver disease Recurrent ascites Follow clinically Diabetes mellitus type 2 Follow blood sugars Insulin sliding scale Diabetic diet DVT Prophylaxis Heparin Progress Note: Quality VTE Deep Vein Thrombosis/Pulmonary Embolism Present on Admission: No
--- NOTE | 2018-06-27 13:53 | P.PNNP ---
Subjective Interval history: tired today, some abdominal discomfort Physical Exam Vital signs: Vital Signs 06/26/18 14:08 06/26/18 14:09 06/26/18 15:00 Temperature Pulse Rate 78 79 Respiratory Rate 11 L 16 Blood Pressure 136/65 Pulse Oximetry 84 L 100 06/26/18 16:00 06/26/18 18:16 06/26/18 20:00 Temperature 97.4 F L 97.6 F Pulse Rate 78 77 Respiratory Rate 17 15 18 Blood Pressure 144/65 H 135/64 Pulse Oximetry 86 L 92 L 06/26/18 21:21 06/26/18 22:14 06/27/18 00:00 Temperature 98.6 F Pulse Rate 78 Respiratory Rate 17 18 18 Blood Pressure 146/69 H Pulse Oximetry 94 L 06/27/18 01:26 06/27/18 08:00 06/27/18 09:06 Temperature 97.5 F L Pulse Rate 76 Respiratory Rate 17 17 Blood Pressure 133/67 Pulse Oximetry 91 L 94 L Intake & Output 06/26/18 06/27/18 06/27/18 18:59 06:59 18:59 Intake Total 100 / 100 220 / 220 Output Total 1500 / 1500 0 / 0 Balance -1400 / -1400 220 / 220 Weight 96 kg Intake: IV 100 / 100 100 / 100 Flexbumin 25% Inj 100 ML @ 60 100 / 100 mls/hr IV.SIG WITH DIALYSIS PRN Rx#:[id number] Azactam Inj 2 GM In NS Inj 100 100 / 100 ML @ 200 mls/hr IV.SIG Q24H [facility] Rx#:[id number] Oral 120 / 120 Output: Urine 0 / 0 Hemodialysis Amount 1500 / 1500 Other: Date of Last Bowel Movement 06/18/18 06/25/18 # Bowel Movements 1 - Constitutional no acute distress - Routine HEENT Exam Head: Present: normocephalic Eye: Present: EOMI ENT: Present: mucous membranes moist - Routine Neck Exam Present: supple - Routine Respiratory Exam Present: decreased breath sounds - Routine Cardiovascular Exam Present: RRR - Routine Abdominal Exam Present: soft - Routine Extremities Exam Present: amputation - Routine Skin Exam Present: intact - Routine Neurological Exam Present: alert - Detailed Neurological Exam: Coma Scale Eye Opening: Spontaneous - Routine Psychiatric Exam Present: normal affect Assessment and Plan - Assessment (1) Cellulitis Code(s): L03.90 - Cellulitis, unspecified Status: Acute (2) Gangrene Code(s): I96 - Gangrene, not elsewhere classified Status: Acute (3) S/P BKA (below knee amputation) unilateral Code(s): Z89.519 - Acquired absence of unspecified leg below knee Status: Acute (4) Systolic and diastolic CHF, chronic Code(s): I50.42 - Chronic combined systolic (congestive) and diastolic ( congestive) heart failure Status: Chronic (5) CAD (coronary artery disease) Code(s): I25.10 - Atherosclerotic heart disease of [place] coronary artery without angina pectoris Status: Chronic Qualifiers: Coronary Disease-Associated Artery/Lesion type: [place] artery [place] vs. transplanted heart: [place] heart Associated angina: without angina Qualified Code(s): I25.10 - Atherosclerotic heart disease of [place] coronary artery without angina pectoris (6) DM2 (diabetes mellitus, type 2) Code(s): E11.9 - Type 2 diabetes mellitus without complications Status: Chronic Qualifiers: (7) ESRD (end stage renal disease) on dialysis Code(s): N18.6 - End stage renal disease; Z99.2 - Dependence on renal dialysis Status: Chronic (8) Anemia Code(s): D64.9 - Anemia, unspecified Status: Chronic Qualifiers: Anemia type: due to chronic kidney disease Chronic kidney disease stage: on chronic dialysis Qualified Code(s): N18.6 - End stage renal disease; D63.1 - Anemia in chronic kidney disease; Z99.2 - Dependence on renal dialysis - Plan Patient with end stage renal disease, on HD 3 times a week. Thursday//Thursday Admitted with fcellulitis and gangrene. S/P left BKA 1/ Initial post-op hyperkalemia Potassium reduced in diet. Phosphorus elevated, phoslo added Epogen and vancomycin with dialysis Vital signs stable Tolerated HD yesterday, plan next HD Thursday Continue TTS HD. Possible eventual transfer to rehab.
[2018-06-27] MEDS: Senna/Docusate Sodium 8.6/50 MG Tablet PO SCH ×2 (17:29→22:01)
[2018-06-27] MEDS: Morphine Inj 4 MG/ML Vial IV.PUSH PRN (17:53)
[2018-06-27] MEDS: Aztreonam Inj 2 GM in Sodium Chloride 0.9% Inj 100 ML IV.SIG SCH (22:01)
[2018-06-28] MEDS: Heparin - SQ 10,000 UNITS/ML Vial SQ SCH ×2 (05:17→14:30)
[2018-06-28 06:54] LABS: Baso # (Auto) 0.1 th/mm3 (0.0-0.2); Baso % (Auto) 1.1 % (0.0-2.0); Eos # (Auto) 0.4 th/mm3 (0.0-0.4); Eos % (Auto) 4.3 % (0.0-4.0); Hematocrit 28.7 % (39.0-51.0); Hemoglobin 9.4 gm/dL (13.0-17.0); Lymph # (Auto) 0.6 th/mm3 (1.0-4.8); Lymph % (Auto) 7.6 % (9.0-44.0); Mean Corpuscular HGB Conc 32.7 % (32.0-36.0); Mean Corpuscular Hemoglobin 31.3 pg (27.0-34.0); Mean Corpuscular Volume 95.8 fL (80.0-100.0); Mean Platelet Volume 7.9 fL (7.0-11.0); Mono # (Auto) 0.5 th/mm3 (0.0-0.9); Mono % (Auto) 5.5 % (0.0-8.0); Neut % (Auto) 81.5 % (16.0-70.0); Platelet Count 209 th/mm3 (150-450); Red Cell Distribution Width 15.9 % (11.6-17.2); White Blood Count 8.5 th/mm3 (4.0-11.0)
[2018-06-28 07:26] LABS: Alkaline Phosphatase 110 U/L (45-117); Anion Gap 12 meq/L (5-15); Aspartate Aminotransferase 46 U/L (15-37); Blood Urea Nitrogen 67 mg/dL (7-18); Calcium 8.1 mg/dL (8.5-10.1); Carbon Dioxide 25.2 meq/L (21.0-32.0); Chloride 98 meq/L (98-107); Glomerular Filtration Rate 5 mL/min (>89); Glucose,Random 89 mg/dL (74-106); Potassium 5.5 meq/L (3.5-5.1); Sodium 135 meq/L (136-145); Total Protein 6.1 g/dL (6.4-8.2)
[2018-06-28] MEDS: amLODIPine 5 MG Tablet PO SCH (08:35)
[2018-06-28] MEDS: Carvedilol 12.5 MG Tablet PO SCH (08:35)
[2018-06-28] MEDS: Senna/Docusate Sodium 8.6/50 MG Tablet PO SCH (08:35)
[2018-06-28] MEDS: Gabapentin 300 MG Capsule PO SCH (08:35)
[2018-06-28] MEDS: Insulin NovoLOG Aspart Correctional Sugar Inj SQ SCH ×2 (08:36→12:21)
[2018-06-28] MEDS: Ezetimibe 10 MG Tablet PO SCH (08:36)
[2018-06-28] MEDS: Calcium Acetate 667 MG Capsule PO SCH ×2 (08:36→12:46)
--- NOTE | 2018-06-28 11:47 | P.PNVS ---
Subjective Subjective/Hospital Course: Referral received Full consult to bradley San 06/20/2018 Patient evaluated and full consult dictated We will go ahead with CTA with runoff of the left leg and see if there is anything salvageable there either by endovascular or open means This patient has a very significant risk of losing his leg on the BKA level Details in the consult 06/21/2018 Patient with right above-knee amputation and remaining severe vascular occlusive disease in the left leg CTA reveals throughout calcification is very hard to tell if patient has occlusion of the vessels or any flow I suspect severe SFA and trifurcation disease with likely occlusion at least 1 or 2 vessels to the foot and probably severe vascular disease at the level of the ankle Will order angiogram with runoff in radiology and then decide if there is something we can address endovascularly If there is nothing to addressed endovascularly this patient will proceed to loses left leg 06/22/2018 Patient scheduled tomorrow to undergo formal angiogram and possible arterectomy SFA and popliteal artery are occluded and patient does not have any target vessel for bypass either femoral popliteal or femoral to distal bypass considering that trifurcation vessels and into nothing in [facility] the calf Foot remains cyanotic and cold and calf is cool as it was on my initial exam 20 June. I discussed this with patient now at length in the presence of his brother. Depending on the results of formal angiogram this patient will either have below -knee or above-knee amputation. Foot itself is not salvageable at this time no matter what. Patient and family understand this and agree with the plan 06/23/2018 Patient with severe ischemia of the left leg. Formal arteriogram results are in the record. Patient has peroneal artery with some reconstitution of the posterior tibial artery as the only supply below the level of the knee. At this point there is no reconstruction possible and this is the nonsalvageable situation I discussed this with Dr. Cardoso the interventional radiologist and we both agree on the further approach. I believe remaining vasculature may be sufficient to support below-knee amputation and therefore will proceed with the same tomorrow. Unfortunately there is a high likelihood that patient will eventually end up with above-knee amputation just like on the contralateral side. Discussed with patient in length and we will proceed with left below-knee amputation tomorrow 06/25/2018 Status post left BKA Dressing is intact clean and dry Will leave original dressing on until Thursday May transfer to floor anytime from vascular point Nothing to add to care at this time 06/26/2018 Status post left BKA dressing is clean and dry DC original dressing and redressed with light gauze Stitches will remain in place for about 3 weeks total 06/28/2018 Left BKA stump is nice clean and dry Original dressing has been removed and I ordered a light dressings to be applied Stitches will remain in place for about 3 weeks Patient is to follow-up in my office in about 2-3 weeks Objective Vital Signs / I&O: Vital Signs 06/27/18 12:00 06/27/18 16:00 06/27/18 20:00 Temperature 97.3 F L 97.2 F L 96.9 F L Pulse Rate 72 77 73 Respiratory Rate 16 19 17 Blood Pressure 133/65 155/72 H 162/74 H Pulse Oximetry 92 L 98 92 L 06/27/18 22:32 06/28/18 00:04 06/28/18 08:00 Temperature 97.9 F 98.1 F Pulse Rate 74 79 Respiratory Rate 17 21 17 Blood Pressure 149/70 H 151/64 H Pulse Oximetry 92 L 86 L 06/28/18 08:33 Temperature Pulse Rate Respiratory Rate Blood Pressure Pulse Oximetry 94 L Intake & Output 06/27/18 06/28/18 06/28/18 18:59 06:59 18:59 Intake Total 175 / 175 480 / 480 Output Total 0 / 0 Balance 175 / 175 480 / 480 Weight 96 kg Intake: IV 100 / 100 Azactam Inj 2 GM In NS Inj 100 100 / 100 ML @ 200 mls/hr IV.SIG Q24H [facility] Rx#:[id number] Oral 175 / 175 380 / 380 Output: Urine 0 / 0 Other: # Voids 0 Date of Last Bowel Movement 06/27/18 06/27/18 # Bowel Movements 0 0 Laboratory Results - last 24 hr 06/27/18 06/27/18 06/28/18 17:39 22:05 06:18 WBC 8.5 RBC 3.00 L Hgb 9.4 L Hct 28.7 L MCV 95.8 MCH 31.3 MCHC 32.7 RDW 15.9 Plt Count 209 MPV 7.9 Neut % (Auto) 81.5 H Lymph % (Auto) 7.6 L [place] % (Auto) 5.5 Eos % (Auto) 4.3 H Baso % (Auto) 1.1 Neut # (Auto) 7.0 Lymph # (Auto) 0.6 L [place] # (Auto) 0.5 Eos # (Auto) 0.4 Baso # (Auto) 0.1 WBC Differential . Differential Comment Auto diff final Sodium Potassium Chloride Carbon Dioxide Anion Gap BUN Creatinine Estimated GFR POC Glucose 108 118 H Random Glucose Calcium Total Bilirubin AST ALT Alkaline Phosphatase Ammonia Total Protein Albumin 06/28/18 06/28/18 06/28/18 06:18 06:18 07:36 WBC RBC Hgb Hct MCV MCH MCHC RDW Plt Count MPV Neut % (Auto) Lymph % (Auto) [place] % (Auto) Eos % (Auto) Baso % (Auto) Neut # (Auto) Lymph # (Auto) [place] # (Auto) Eos # (Auto) Baso # (Auto) WBC Differential Differential Comment Sodium 135 L Potassium 5.5 H Chloride 98 Carbon Dioxide 25.2 Anion Gap 12 BUN 67 H Creatinine 10.26 H* D Estimated GFR 5 L POC Glucose 107 Random Glucose 89 Calcium 8.1 L Total Bilirubin 0.4 AST 46 H ALT Less than 6 L Alkaline Phosphatase 110 Ammonia 22 Total Protein 6.1 L Albumin 2.0 L Impressions Abdomen Ultrasound 06/26/18 00:00 CONCLUSION: 1. Slight ascites.
[2018-06-28 12:19] VITALS: BP 137/77; PULSE 78; RESP 16; TEMP 97.8; O2SAT 87
--- NOTE | 2018-06-28 13:53 | P.PN ---
Subjective Interval history: awake and alert minimal pain left BKA site good po Physical Exam Vital signs: Vital Signs 06/27/18 16:00 06/27/18 20:00 06/27/18 22:32 Temperature 97.2 F L 96.9 F L Pulse Rate 77 73 Respiratory Rate 19 17 17 Blood Pressure 155/72 H 162/74 H Pulse Oximetry 98 92 L 06/28/18 00:04 06/28/18 08:00 06/28/18 08:33 Temperature 97.9 F 98.1 F Pulse Rate 74 79 Respiratory Rate 21 17 Blood Pressure 149/70 H 151/64 H Pulse Oximetry 92 L 86 L 94 L 06/28/18 12:00 Temperature 97.8 F Pulse Rate 78 Respiratory Rate 16 Blood Pressure 137/77 Pulse Oximetry 87 L Intake & Output 06/27/18 06/28/18 06/28/18 18:59 06:59 18:59 Intake Total 175 / 175 480 / 480 Output Total 0 / 0 Balance 175 / 175 480 / 480 Weight 96 kg Intake: IV 100 / 100 Azactam Inj 2 GM In NS Inj 100 100 / 100 ML @ 200 mls/hr IV.SIG Q24H [facility] Rx#:[id number] Oral 175 / 175 380 / 380 Output: Urine 0 / 0 Other: # Voids 0 Date of Last Bowel Movement 06/27/18 06/27/18 # Bowel Movements 0 0 Narrative: GENERAL: NAD, A&Ox3 HEAD: Normocephalic. NECK: Supple, EYES: No scleral icterus. No injection or drainage. CARDIOVASCULAR: Regular rate and rhythm without murmurs, gallops, or rubs. RESPIRATORY: Breath sounds equal bilaterally. No accessory muscle use. GASTROINTESTINAL: Abdomen soft, non-tender, abdomen is distended. MUSCULOSKELETAL: No cyanosis, or edema. left BKA- dressing in place right AKA well healed stump SKIN: Warm and dry. NEURO: No focal neurological deficits. Results - Labs CBC & Chem 7: 06/28/18 06:18 06/28/18 06:18 Laboratory Results - last 24 hr 06/27/18 06/27/18 06/28/18 17:39 22:05 06:18 WBC 8.5 RBC 3.00 L Hgb 9.4 L Hct 28.7 L MCV 95.8 MCH 31.3 MCHC 32.7 RDW 15.9 Plt Count 209 MPV 7.9 Neut % (Auto) 81.5 H Lymph % (Auto) 7.6 L [place] % (Auto) 5.5 Eos % (Auto) 4.3 H Baso % (Auto) 1.1 Neut # (Auto) 7.0 Lymph # (Auto) 0.6 L [place] # (Auto) 0.5 Eos # (Auto) 0.4 Baso # (Auto) 0.1 WBC Differential . Differential Comment Auto diff final Sodium Potassium Chloride Carbon Dioxide Anion Gap BUN Creatinine Estimated GFR POC Glucose 108 118 H Random Glucose Calcium Total Bilirubin AST ALT Alkaline Phosphatase Ammonia Total Protein Albumin 06/28/18 06/28/18 06/28/18 06:18 06:18 07:36 WBC RBC Hgb Hct MCV MCH MCHC RDW Plt Count MPV Neut % (Auto) Lymph % (Auto) [place] % (Auto) Eos % (Auto) Baso % (Auto) Neut # (Auto) Lymph # (Auto) [place] # (Auto) Eos # (Auto) Baso # (Auto) WBC Differential Differential Comment Sodium 135 L Potassium 5.5 H Chloride 98 Carbon Dioxide 25.2 Anion Gap 12 BUN 67 H Creatinine 10.26 H* D Estimated GFR 5 L POC Glucose 107 Random Glucose 89 Calcium 8.1 L Total Bilirubin 0.4 AST 46 H ALT Less than 6 L Alkaline Phosphatase 110 Ammonia 22 Total Protein 6.1 L Albumin 2.0 L 06/28/18 12:08 WBC RBC Hgb Hct MCV MCH MCHC RDW Plt Count MPV Neut % (Auto) Lymph % (Auto) [place] % (Auto) Eos % (Auto) Baso % (Auto) Neut # (Auto) Lymph # (Auto) [place] # (Auto) Eos # (Auto) Baso # (Auto) WBC Differential Differential Comment Sodium Potassium Chloride Carbon Dioxide Anion Gap BUN Creatinine Estimated GFR POC Glucose 102 Random Glucose Calcium Total Bilirubin AST ALT Alkaline Phosphatase Ammonia Total Protein Albumin Assessment and Plan - Assessment (1) Cellulitis Code(s): L03.90 - Cellulitis, unspecified Status: Acute (2) Gangrene Code(s): I96 - Gangrene, not elsewhere classified Status: Acute (3) S/P BKA (below knee amputation) unilateral Code(s): Z89.519 - Acquired absence of unspecified leg below knee Status: Acute (4) Systolic and diastolic CHF, chronic Code(s): I50.42 - Chronic combined systolic (congestive) and diastolic ( congestive) heart failure Status: Chronic (5) CAD (coronary artery disease) Code(s): I25.10 - Atherosclerotic heart disease of [place] coronary artery without angina pectoris Status: Chronic (6) DM2 (diabetes mellitus, type 2) Code(s): E11.9 - Type 2 diabetes mellitus without complications Status: Chronic (7) ESRD (end stage renal disease) on dialysis Code(s): N18.6 - End stage renal disease; Z99.2 - Dependence on renal dialysis Status: Chronic (8) Anemia Code(s): D64.9 - Anemia, unspecified Status: Chronic - Plan 53-year-old male admitted secondary to left lower extremity infection, now status post left BKA Patient's left leg wound is healing well. Continue postop care. Ultrasound of abdomen shows only slight ascites. No need for paracentesis at this time. Follow patient clinically. Check ammonia level. Monitor for regular bowel movements. Start incentive spirometry. Toe cellulitis/gangrene History of severe atherosclerotic disease Chronic AKA at right Status post BKA at left Continue vancomycin and aztreonam Follow blood cultures Vascular surgery following Podiatry following Status post BKA of left on 06/24/2018 Continue postop care- p[er vascular surgery- leep[ stitiches for 3 weeks. OP ff up in [address] San End-stage renal disease Hyperkalemia Continue dialysis- t//sa Nephrology following Holding Aldactone and HERB inhibitor give Kayexalate 15 gm po x 1 today. HD in am Follow renal function Chronic liver disease Recurrent ascites Follow clinically Diabetes mellitus type 2 Follow blood sugars Insulin sliding scale Diabetic diet DVT Prophylaxis Heparin Progress Note: Quality VTE Deep Vein Thrombosis/Pulmonary Embolism Present on Admission: No DC to [facility] today (5) CAD (coronary artery disease) Qualifiers: Coronary Disease-Associated Artery/Lesion type: [place] artery [place] vs. transplanted heart: [place] heart Associated angina: without angina Qualified Code(s): I25.10 - Atherosclerotic heart disease of [place] coronary artery without angina pectoris (6) DM2 (diabetes mellitus, type 2) Qualifiers: (8) Anemia Qualifiers: Anemia type: due to chronic kidney disease Chronic kidney disease stage: on chronic dialysis Qualified Code(s): N18.6 - End stage renal disease; D63.1 - Anemia in chronic kidney disease; Z99.2 - Dependence on renal dialysis
[2018-06-28] MEDS ORDERED: Sodium Polystyrene Sulfonate/Sorbitol Liq 15 GM/60 ML UDC PO ONE (13:55)
--- NOTE | 2018-06-28 14:01 | P.DS ---
Date of admission: 06/18/18 18:47 Primary care physician: Jose Orellana MD Anticipated date of discharge: 06/28/18 Brief History from admission: 53-year-old male with a past medical history significant for diabetes mellitus, coronary artery disease, end-stage renal disease on dialysis Thursday, liver disease with multiple paracentesis and hypertension presents to the emergency department for the evaluation of left third toe cellulitis and pain. The patient reports that approximately 2 weeks ago he started to have pain and swelling in the third digit on his left foot. He denies any trauma to the area but does state that he had a sore from his diabetic shoes present on that foot. He was seen by his auto former machine operator, Dr. Ochoa, and sent to the emergency department for further evaluation. Patient denies any fever/chills. Last dialysis was yesterday. No chest pain or shortness of breath. No abdominal pain. No nausea/vomiting/diarrhea. No focal neurologic deficits. Patient update on day of discharge: awake and alert, afebrile no pain motivated with more physical therapy- looking forward to getting into [facility]: Diagnosis - Discharge Diagnosis (1) Cellulitis Status: Acute (2) Gangrene Status: Acute (3) S/P BKA (below knee amputation) unilateral Status: Acute (4) Systolic and diastolic CHF, chronic Status: Chronic (5) CAD (coronary artery disease) Status: Chronic (6) DM2 (diabetes mellitus, type 2) Status: Chronic (7) ESRD (end stage renal disease) on dialysis Status: Chronic (8) Anemia Status: Chronic DS: Summary - Time Spent with Patient Total time spent providing and/or coordinating discharge services: - Quality: VTE Deep Vein Thrombosis/Pulmonary Embolism Present on Admission: No Exam Vital signs: Vital Signs 06/27/18 16:00 06/27/18 20:00 06/27/18 22:32 Temperature 97.2 F L 96.9 F L Pulse Rate 77 73 Respiratory Rate 19 17 17 Blood Pressure 155/72 H 162/74 H Pulse Oximetry 98 92 L 06/28/18 00:04 06/28/18 08:00 06/28/18 08:33 Temperature 97.9 F 98.1 F Pulse Rate 74 79 Respiratory Rate 21 17 Blood Pressure 149/70 H 151/64 H Pulse Oximetry 92 L 86 L 94 L 06/28/18 12:00 Temperature 97.8 F Pulse Rate 78 Respiratory Rate 16 Blood Pressure 137/77 Pulse Oximetry 87 L Intake & Output 06/27/18 06/28/18 06/28/18 18:59 06:59 18:59 Intake Total 175 / 175 480 / 480 Output Total 0 / 0 Balance 175 / 175 480 / 480 Weight 96 kg Intake: IV 100 / 100 Azactam Inj 2 GM In NS Inj 100 100 / 100 ML @ 200 mls/hr IV.SIG Q24H [facility] Rx#:[id number] Oral 175 / 175 380 / 380 Output: Urine 0 / 0 Other: # Voids 0 Date of Last Bowel Movement 06/27/18 06/27/18 # Bowel Movements 0 0 Results Pending studies at discharge: Pending at discharge 06/24/18 15:18 Surgical [PTH] Routine Labs on day of discharge: Labs from last 24 hours 06/28/18 06/28/18 06/28/18 12:08 07:36 06:18 WBC RBC Hgb Hct MCV MCH MCHC RDW Plt Count MPV Neut % (Auto) Lymph % (Auto) [place] % (Auto) Eos % (Auto) Baso % (Auto) Neut # (Auto) Lymph # (Auto) [place] # (Auto) Eos # (Auto) Baso # (Auto) WBC Differential Differential Comment Sodium Potassium Chloride Carbon Dioxide Anion Gap BUN Creatinine Estimated GFR POC Glucose 102 107 Random Glucose Calcium Total Bilirubin AST ALT Alkaline Phosphatase Ammonia 22 Total Protein Albumin 06/28/18 06/28/18 06/27/18 06:18 06:18 22:05 WBC 8.5 RBC 3.00 L Hgb 9.4 L Hct 28.7 L MCV 95.8 MCH 31.3 MCHC 32.7 RDW 15.9 Plt Count 209 MPV 7.9 Neut % (Auto) 81.5 H Lymph % (Auto) 7.6 L [place] % (Auto) 5.5 Eos % (Auto) 4.3 H Baso % (Auto) 1.1 Neut # (Auto) 7.0 Lymph # (Auto) 0.6 L [place] # (Auto) 0.5 Eos # (Auto) 0.4 Baso # (Auto) 0.1 WBC Differential . Differential Comment Auto diff final Sodium 135 L Potassium 5.5 H Chloride 98 Carbon Dioxide 25.2 Anion Gap 12 BUN 67 H Creatinine 10.26 H* D Estimated GFR 5 L POC Glucose 118 H Random Glucose 89 Calcium 8.1 L Total Bilirubin 0.4 AST 46 H ALT Less than 6 L Alkaline Phosphatase 110 Ammonia Total Protein 6.1 L Albumin 2.0 L 06/27/18 17:39 WBC RBC Hgb Hct MCV MCH MCHC RDW Plt Count MPV Neut % (Auto) Lymph % (Auto) [place] % (Auto) Eos % (Auto) Baso % (Auto) Neut # (Auto) Lymph # (Auto) [place] # (Auto) Eos # (Auto) Baso # (Auto) WBC Differential Differential Comment Sodium Potassium Chloride Carbon Dioxide Anion Gap BUN Creatinine Estimated GFR POC Glucose 108 Random Glucose Calcium Total Bilirubin AST ALT Alkaline Phosphatase Ammonia Total Protein Albumin - Impressions ITS Impressions Extremity Arterial Study 06/18/18 00:00 CONCLUSION: 1. Decreased right KELLY characteristic of moderate arterial insufficiency. 2. Absent toe pressure characteristic of severe small vessel disease and arterial insufficiency involving the foot. Foot MRI 06/18/18 16:30 CONCLUSION: 1. Postsurgical features with no definitive evidence for osteomyelitis, as questioned. 2. Degenerative osteoarthritis, most notably of the first metatarsophalangeal and interphalangeal joints. Carotid Doppler Study 06/20/18 00:00 CONCLUSION: 1. Right Internal Carotid Artery: Calcified plaque without hemodynamically significant stenosis. 2. Left Internal Carotid Artery: Calcified plaque without hemodynamically significant stenosis. Aorta w/Runoff CTA 06/20/18 13:18 CONCLUSION: 1. Suboptimal study for diagnostic purposes. Atherosclerotic disease is densely calcified making it difficult to evaluate the patency of vessels in the left lower extremity. The distal left femoral artery and popliteal arteries appear to be occluded with blood flow to the leg and foot through collateral vessels with some reconstitution. There is probably 1-2 vessel poor runoff at the foot. This would be better assessed with conventional angiography. 2. Mild to moderate ascites. Chronic appearing right pleural effusion with pleural thickening and basilar lung consolidation and atelectasis. Mild anasarca. Cardiomegaly. Paracentesis Ultrasound 06/21/18 00:00 CONCLUSION: 1. Uncomplicated paracentesis. Lower Extremity Angiography 06/23/18 00:00 CONCLUSION: 1. Severe atherosclerotic disease involving the superficial femoral, the popliteal and tibial vessels as above. This is not amenable to endovascular repair. Chest X-Ray 06/24/18 00:00 CONCLUSION: 1. Diffuse prominent cardiomegaly. 2. Pulmonary venous congestion versus pulmonary edema. 3. Parenchymal consolidation/infiltrate in the right lung base without significant change compared to the prior exam. Abdomen Ultrasound 06/26/18 00:00 CONCLUSION: 1. Slight ascites. Discharge Plan - Discharge Disposition Patient Disposition: [facility] Re[facility] Inpatient - Discharge Condition Condition: Stable - Discharge Order Discharge Orders: Discharge Order (Routine); Ordered 06/28/18 Ordered By: Keshia Avila - Discharge Details Anticipated Discharge Date: 06/28/18 - Physicians Team Primary Care Provider: Jose Orellana Attending Provider: Keshia Avila Other Providers: Chele Reid MD ; Elvia Rodriguez DPM ; Kimani Field MD ; Bony Bruce MD
--- NOTE | 2018-06-28 15:13 | P.PNNP ---
Subjective Interval history: Seen in AM. Reports some mild shortness of breath and feeling hoarse. <Padmini Walton - Last Filed: 06/28/18 15:10> Physical Exam Vital signs: Vital Signs 06/27/18 16:00 06/27/18 20:00 06/27/18 22:32 Temperature 97.2 F L 96.9 F L Pulse Rate 77 73 Respiratory Rate 19 17 17 Blood Pressure 155/72 H 162/74 H Pulse Oximetry 98 92 L 06/28/18 00:04 06/28/18 08:00 06/28/18 08:33 Temperature 97.9 F 98.1 F Pulse Rate 74 79 Respiratory Rate 21 17 Blood Pressure 149/70 H 151/64 H Pulse Oximetry 92 L 86 L 94 L 06/28/18 12:00 Temperature 97.8 F Pulse Rate 78 Respiratory Rate 16 Blood Pressure 137/77 Pulse Oximetry 87 L Intake & Output 06/27/18 06/28/18 06/28/18 18:59 06:59 18:59 Intake Total 175 / 175 480 / 480 Output Total 0 / 0 Balance 175 / 175 480 / 480 Weight 96 kg Intake: IV 100 / 100 Azactam Inj 2 GM In NS Inj 100 100 / 100 ML @ 200 mls/hr IV.SIG Q24H ADELINE Rx#:[id number] Oral 175 / 175 380 / 380 Output: Urine 0 / 0 Other: # Voids 0 Date of Last Bowel Movement 06/27/18 06/27/18 # Bowel Movements 0 0 Narrative: GENERAL: NAD, A&Ox3 NECK: Supple, No JVD CARDIOVASCULAR: Regular rate and rhythm without murmurs, gallops, or rubs. RESPIRATORY: Breath sounds equal bilaterally. No accessory muscle use. GASTROINTESTINAL: Abdomen soft, non-tender, abdomen is distended. MUSCULOSKELETAL: No cyanosis, or edema. left BKA- dressing in place right AKA well healed stump SKIN: Warm and dry. <Padmini Walton - Last Filed: 06/28/18 15:10> Vital signs: Vital Signs 06/27/18 22:32 06/28/18 00:04 06/28/18 08:00 Temperature 97.9 F 98.1 F Pulse Rate 74 79 Respiratory Rate 17 21 17 Blood Pressure 149/70 H 151/64 H Pulse Oximetry 92 L 86 L 06/28/18 08:33 06/28/18 12:00 Temperature 97.8 F Pulse Rate 78 Respiratory Rate 16 Blood Pressure 137/77 Pulse Oximetry 94 L 87 L Intake & Output 06/28/18 06/28/18 06/29/18 06:59 18:59 06:59 Intake Total 480 / 480 Balance 480 / 480 Weight 96 kg Intake: IV 100 / 100 Azactam Inj 2 GM In NS Inj 100 100 / 100 ML @ 200 mls/hr IV.SIG Q24H ADELINE Rx#:[id number] Oral 380 / 380 Other: # Voids 0 Date of Last Bowel Movement 06/27/18 # Bowel Movements 0 <Nas Reid Q - Last Filed: 06/28/18 22:09> Assessment and Plan - Assessment (1) Cellulitis Code(s): L03.90 - Cellulitis, unspecified Status: Acute (2) Gangrene Code(s): I96 - Gangrene, not elsewhere classified Status: Acute (3) S/P BKA (below knee amputation) unilateral Code(s): Z89.519 - Acquired absence of unspecified leg below knee Status: Acute (4) Systolic and diastolic CHF, chronic Code(s): I50.42 - Chronic combined systolic (congestive) and diastolic ( congestive) heart failure Status: Chronic (5) CAD (coronary artery disease) Code(s): I25.10 - Atherosclerotic heart disease of [place] coronary artery without angina pectoris Status: Chronic Qualifiers: Coronary Disease-Associated Artery/Lesion type: [place] artery [place] vs. transplanted heart: [place] heart Associated angina: without angina Qualified Code(s): I25.10 - Atherosclerotic heart disease of [place] coronary artery without angina pectoris (6) DM2 (diabetes mellitus, type 2) Code(s): E11.9 - Type 2 diabetes mellitus without complications Status: Chronic (7) ESRD (end stage renal disease) on dialysis Code(s): N18.6 - End stage renal disease; Z99.2 - Dependence on renal dialysis Status: Chronic (8) Anemia Code(s): D64.9 - Anemia, unspecified Status: Chronic Qualifiers: Anemia type: due to chronic kidney disease Chronic kidney disease stage: on chronic dialysis Qualified Code(s): N18.6 - End stage renal disease; D63.1 - Anemia in chronic kidney disease; Z99.2 - Dependence on renal dialysis - Plan Patient with end stage renal disease, on HD 3 times a week. Thursday//Thursday Admitted with cellulitis and gangrene. S/P left BKA 1/ Initial post-op hyperkalemia Potassium reduced in diet. Phosphorus elevated, phoslo added Epogen and vancomycin with dialysis Vital signs stable Plan next HD Thursday Continue TTS HD. Hyperkalemia at 5.5, Kayexalate given <Padmini Walton - Last Filed: 06/28/18 15:10> - Assessment (1) Cellulitis Code(s): L03.90 - Cellulitis, unspecified Status: Acute (2) Gangrene Code(s): I96 - Gangrene, not elsewhere classified Status: Acute (3) S/P BKA (below knee amputation) unilateral Code(s): Z89.519 - Acquired absence of unspecified leg below knee Status: Acute (4) Systolic and diastolic CHF, chronic Code(s): I50.42 - Chronic combined systolic (congestive) and diastolic ( congestive) heart failure Status: Chronic (5) CAD (coronary artery disease) Code(s): I25.10 - Atherosclerotic heart disease of [place] coronary artery without angina pectoris Status: Chronic Qualifiers: Coronary Disease-Associated Artery/Lesion type: [place] artery [place] vs. transplanted heart: [place] heart Associated angina: without angina Qualified Code(s): I25.10 - Atherosclerotic heart disease of [place] coronary artery without angina pectoris (6) DM2 (diabetes mellitus, type 2) Code(s): E11.9 - Type 2 diabetes mellitus without complications Status: Chronic Qualifiers: Diabetes mellitus half-way insulin use: without termite control service representative use Diabetes mellitus complication status: with circulatory complication Diabetes mellitus complication detail: with peripheral angiopathy with gangrene Qualified Code(s ): E11.52 - Type 2 diabetes mellitus with diabetic peripheral angiopathy with gangrene (7) ESRD (end stage renal disease) on dialysis Code(s): N18.6 - End stage renal disease; Z99.2 - Dependence on renal dialysis Status: Chronic (8) Anemia Code(s): D64.9 - Anemia, unspecified Status: Chronic Qualifiers: Anemia type: due to chronic kidney disease Chronic kidney disease stage: on chronic dialysis Qualified Code(s): N18.6 - End stage renal disease; D63.1 - Anemia in chronic kidney disease; Z99.2 - Dependence on renal dialysis - Plan Patient seen and examined, agree with above. Patient for transfer to [facility] for Rehab. HD is due in AM. <Chele Reid - Last Filed: 06/28/18 22:09>
== END 2018-06-28 15:16 | DRG 239 ==
LOC: NEPE 15:54 → NEDA 18:47 → N04 19:57 → N03 06-24 15:49 → N07 06-26 16:02
PROVIDERS: ADMIT Internal Medicine; ATTEND Internal Medicine
DX: L03.116 Cellulitis of left lower limb; I13.2 Hypertensive heart and chronic kidney disease with heart failure and with stage 5 chronic kidney disease, or end stage renal disease; I50.42 Chronic combined systolic (congestive) and diastolic (congestive) heart failure; F17.210 Nicotine dependence, cigarettes, uncomplicated; K72.90 Hepatic failure, unspecified without coma; D63.1 Anemia in chronic kidney disease; Z88.0 Allergy status to penicillin; K76.9 Liver disease, unspecified; I25.2 Old myocardial infarction; E87.5 Hyperkalemia; E11.52 Type 2 diabetes mellitus with diabetic peripheral angiopathy with gangrene; Z89.611 Acquired absence of right leg above knee; Z82.3 Family history of stroke; I25.10 Atherosclerotic heart disease of native coronary artery without angina pectoris; Z79.82 Long term (current) use of aspirin; Z79.4 Long term (current) use of insulin; Z79.899 Other long term (current) drug therapy; E11.22 Type 2 diabetes mellitus with diabetic chronic kidney disease; N18.6 End stage renal disease; R18.8 Other ascites; Z99.2 Dependence on renal dialysis
CPT/HCPCS: 36246; 49083; 71010; 71045; 73718; 75635; 75710; 76705; 76937; 80048; 80053; 80069; 80076; 80202; 82040; 82140; 82565; 82948; 82962; 83605; 83735; 84520; 85025; 85027; 85610; 85651; 85652; 85730; 86140; 86850; 86900; 86901; 86923; 87040; 88307; 88311; 90765; 90774; 90775; 90780; 90784; 90935; 93005; 93880; 93922; 94150; 96365; 96374; 96375; 97163; 99145; 99152; 99153; 99285; A4646; C1729; C1769; C1887; C1893; C1894; C8950; C8952; J0131; J0171; J0461; J0690; J0886; J1200; J1265; J1644; J1815; J1885; J2250; J2270; J2405; J2543; J3010; J3370; J7030; J7050; P9047; Q4055; Q4081; Q9949; Q9967